=== PATIENT | male | born 1955 | race Caucasian/White ===

== ENCOUNTER → 2021-06-05 06:30 | Outpatient (CLI) | payer OTHER, BC, SELFPAY ==
--- NOTE | 2021-06-05 06:43 | MRI_ITS ---
STUDY: MRI RIGHT SHOULDER REASON FOR EXAM: Right shoulder pain extending to elbow for over a year, no specific injury. TECHNIQUE: Standardized fat and water weighted pulse sequences were obtained in all 3 orthogonal planes. COMPARISON: None. FINDINGS: There is mild supraspinatus tendinosis (T2 coronal images 12-14) without discrete tendon tear. There is mild infraspinatus tendinosis with a small linear intermediate to high-grade partial-thickness tear of the articular surface of the distal anterior infraspinatus tendon (T2 coronal image 10). Normal subscapularis tendon. Normal teres minor tendon. Normal supraspinatus muscle. There is mild atrophy with mild partial fat replacement of the infraspinatus and teres minor muscles (T2 sagittal images 16-22). Normal subscapularis muscle. Normal glenohumeral articulation. There is mild cystic change of the posterior aspect of the greater tuberosity. There is a suspected SLAP lesion (T2 coronal images 9-13). Normal intracapsular long biceps tendon. Normal capsulo- ligamentous complex. There is acromioclavicular arthrosis with hypertrophic changes abutting the supraspinatus musculotendinous junction (T2 sagittal image 15, 16). There is a Type II morphology (curved), with a neutral orientation. There is a trace of subacromial-subdeltoid bursal fluid. Normal visualized coracohumeral and coracoacromial ligaments. Normal deltoid muscle. Normal trapezius muscle. MRI/Upper Ext Joint Only(Routine) IMPRESSION: Small linear partial-thickness tear and mild tendinosis of the infraspinatus tendon. Mild subscapularis tendinosis. Mild atrophy of the infraspinatus and teres minor muscles. Suspected SLAP lesion. Acromioclavicular arthrosis. Electronically Signed: Jimmie Spear MD at 8:25 EDT Tel , Service support ,
== END ==
DX: M19.011 Primary osteoarthritis, right shoulder (principal)
CPT/HCPCS: 73221

== ENCOUNTER 2021-12-31 08:15 | Emergency (ER) | payer OTHER, BC, SELFPAY ==
[2021-12-31 08:15] VITALS: BP 116/90; PULSE 104; RESP 14; TEMP 36.6; O2SAT 99; BMI 30.3
[2021-12-31 08:18] VITALS: BP 116/90; PULSE 103; RESP 17; TEMP 36.6; O2SAT 99
--- NOTE | 2021-12-31 08:31 | EX.ED.DYSGE1 ---
HPI History of Present Illness Chief Complaint: Other, Pain/Inj Informant: patient Onset/Context/Timing Onset: Today Context: Sudden Onset Timing: Continuous Quality: Purulent drainage Location: Right-sided neck Worsened by: Nothing Relieved by: Nothing Narrative Narrative: Patient presents with purulent drainage from the right side of his neck that began today. Patient had a recent tracheostomy and removal of the tracheostomy. Patient had a temperature of 99.7 yesterday but denies any true fever. Patient denies any difficulty breathing or difficulty swallowing. Patient has noticed a large amount of purulent drainage from the right side of his neck today. Patient denies any chest pain or shortness of breath. Patient denies any nausea or vomiting. Patient denies any other symptoms. [facility] Medical History (Updated 12/31/21 @ 10:[address] Nabil Bolden, ) Cancer of lower jaw bone Home Medications acetaminophen 480 mg PO Q6H PRN 12/31/21 [History Last Taken Unknown] allopurinol 300 mg PO DAILY 12/31/21 [History Last Taken Unknown] aspirin 325 mg PO DAILY 12/31/21 [History Last Taken Unknown] atenolol 50 mg FEEDING TUBE DAILY 12/31/21 [History Last Taken Unknown] cephalexin 500 mg PO Q6 #40 capsule 12/31/21 [Rx Last Taken Unknown] chlorhexidine gluconate 15 ml MUCOUS MEMBRANE TID 12/31/21 [History Last Taken Unknown] docusate sodium [Colace] 100 mg FEEDING TUBE BID 12/31/21 [History Last Taken Unknown] esomeprazole magnesium 40 mg FEEDING TUBE DAILY 12/31/21 [History Last Taken Unknown] hydrochlorothiazide 50 mg FEEDING TUBE DAILY 12/31/21 [History Last Taken Unknown] metformin 500 mg FEEDING TUBE DAILY 12/31/21 [History Last Taken Unknown] oxycodone 5 mg FEEDING TUBE Q6H PRN PRN 12/31/21 [History Last Taken Unknown] pioglitazone 45 mg FEEDING TUBE DAILY 12/31/21 [History Last Taken Unknown] sennosides [senna] 8.6 mg PO DAILY 12/31/21 [History Last Taken Unknown] Allergy/AdvReac Type Severity Reaction Status Date / Time pneumococcal vaccine Allergy PT UNSURE Verified 12/31/21 08:23 OF REACTION clarithromycin [From Biaxin] AdvReac PT UNSURE Verified 12/31/21 08:23 OF REACTION empagliflozin AdvReac Other Verified 12/31/21 08:23 [From Jardiance] glipizide AdvReac PT UNSURE Verified 12/31/21 08:23 OF REACTION losartan AdvReac PT UNSURE Verified 12/31/21 08:23 OF REACTION Surgical History (Updated 12/31/21 @ 08:[address] Nabil Bolden, ) Hx of tracheostomy S/P percutaneous endoscopic gastrostomy (PEG) tube placement Social History Smoking Status: Never smoker ROS ROS ED Constitutional Constitutional ED: Reports fever(s) and subjective; Denies chills Eyes Eyes: Denies blurry vision or change in vision ENT ENT ED: Denies rhinorrhea or sore throat Cardiovascular Cardiovascular: Denies chest pain or palpitations Respiratory/Chest Respiratory/Chest: Denies cough or dyspnea Gastrointestinal Gastrointestinal: Denies nausea or vomiting Genitourinary Genitourinary ED: Denies dysuria or hematuria Musculoskeletal Musculoskeletal: Reports neck pain; Denies back pain Integumentary Reports abscess; Denies rash Neurologic Neurologic: Denies headache(s) or weakness Allergic/Immunologic Allergic/Immunologic ED: Denies mouth swelling or urticaria EXAM Physical Exam Const Vital Signs: 12/31/21 08:15 12/31/21 08:18 12/31/21 08:26 Temperature 97.9 F 97.9 F Temperature Source Temporal Temporal Pulse Rate 104 H 103 H Respiratory Rate 14 17 Respiratory Effort Normal Blood Pressure 116/90 H 116/90 H Blood Pressure Mean 98 98 Pulse Ox 99 99 Oxygen Delivery Method Room Air Room Air 12/31/21 09:15 12/31/21 09:36 12/31/21 10:08 Temperature 98.1 F 98.5 F Temperature Source Temporal Temporal Pulse Rate 98 88 Respiratory Rate 18 17 Respiratory Effort Blood Pressure 145/74 H 145/74 H 137/72 H Blood Pressure Mean 97 97 93 Pulse Ox 98 99 Oxygen Delivery Method Room Air Room Air Positive well nourished and well developed General Appearance ED: well developed and NAD HEENT Reports moist mucous membranes Neck supple and no JVD Neck Narrative: There is some mild right submandibular swelling. There is no evidence of Luis Armando's angina. Resp normal respiratory effort and clear to auscultation bilaterally Cardio regular rate and regular rhythm GI non-tender Auscultation: normoactive bowel sounds Palpation: soft Neuro oriented x3, CN's II-XII intact bilaterally and no sensory deficits noted Sensorium / Orientation: alert Motor Exam: strength 5/5 throughout Psych mental status grossly normal Skin Skin Narrative: There is some erythema and induration over the right side of the neck. There is moderate to large amount of purulent drainage noted. There is mild warmth. MDM MDM MDM Narrative Medical decision making narrative: Since the area is already open and draining, I do not feel incision and drainage is necessary at this time. CBC shows a mild leukocytosis of 13.1. Platelets were elevated at 997. This is most likely due to acute phase reactant from the infection. Comprehensive metabolic profile shows a mildly elevated glucose of 211. The remainder was essentially within normal limits. CT scan of the soft tissue neck was obtained. There is small area of abscess on the right. This was interpreted by the radiologist and reviewed by myself. Patient was given a dose of Ancef here. Patient does not meet sepsis criteria. Patient was advised of his findings. Patient was instructed to follow-up with his surgeon in 3 to 5 days. Patient was instructed to return if any difficulty breathing or difficulty swallowing, or if he feels like his tongue or submandibular area is swelling, or if he is worse in any way. Patient understood and was agreeable with the plan. All questions were answered. Lab Data Attestation: I reviewed the patient's lab results. Labs: Laboratory Results - last 24 hr 12/31/21 12/31/21 08:46 08:46 WBC 13.1 H RBC 3.66 L Hgb 11.0 L Hct 32.3 L MCV 88.3 MCH 30.1 MCHC 34.1 RDW Std Deviation 41.1 RDW Coeff of Shira 12.8 Plt Count 997 H* MPV 8.5 Immature Gran % (Auto) 0.700 Neut % (Auto) 72.6 H Lymph % (Auto) 13.3 L Guthrie % (Auto) 11.4 H Eos % (Auto) 1.4 Baso % (Auto) 0.6 Absolute Neuts (auto) 9.5 H Absolute Lymphs (auto) 1.74 Nucleated RBC % 0 Differential Comment SCANNED Diff Path Review May foll Platelet Estimate MKD INC Sodium 132 L Potassium 3.4 L Chloride 94 L Carbon Dioxide 27.0 Anion Gap 11 BUN 19 H Creatinine 0.90 Estim Creat Clear Calc 79.65 Est GFR (MDRD) Af Amer 107 Est GFR (MDRD) Non-Af 89 BUN/Creatinine Ratio 21.0 H Glucose 211 H Calcium 9.5 Total Bilirubin 0.50 AST 26 ALT 45 Alkaline Phosphatase 65 Total Protein 8.6 H Albumin 2.6 L Globulin 6.0 H Albumin/Globulin Ratio 0.4 L Radiography Diagnostic Testing: Clinical Impression(s) from Imaging Studies Soft Tissue Neck CT 12/31/21 08:36 IMPRESSION: At the level of the resection site of the right mandible with reconstruction, there is a 40 x 14 mm fluid collection with air. Se 2 IM: 58. There is also a thin rim of fluid that follows along the inferior margin of the mandible from right to left. Se 2 IM: 55. This can represent an abscess. Differential would also include recent postsurgical changes. Enlarged lymph nodes along the left submandibular spaces. Electronically Signed: Alpesh Wood MD at 10:08 EDT Reading Location ID and State: [facility] / [place] , Service support , Discharge Plan Triage Chief Complaint: Other, Pain/Inj ED Provider: Nabil Bolden Dx/Rx/DC Orders Clinical Impression: Abscess of jaw, right, Thrombocytosis Instructions: ED Abscess Antibiotic Treatment Only Prescriptions: New cephalexin [cephalexin] 500 MG capsule 500 mg PO Q6 Qty: 40 RF: 0 No Action acetaminophen 160 mg/5 mL Suspension 480 mg PO Q6H PRN (Reason: Pain, Mild) RF: 0 allopurinol 300 mg Tablet 300 mg PO DAILY RF: 0 atenolol 50 mg Tablet 50 mg feeding tube DAILY RF: 0 chlorhexidine gluconate 0.12 % Mouthwash 15 ml MUCOUS MEMBRANE TID RF: 0 aspirin 325 mg Capsule 325 mg PO DAILY RF: 0 docusate sodium [Colace] 50 mg/5 mL Liquid 100 mg feeding tube BID RF: 0 metformin 500 mg Tablet 500 mg feeding tube DAILY RF: 0 hydrochlorothiazide 50 mg Tablet 50 mg feeding tube DAILY RF: 0 oxycodone 5 mg/5 mL Solution 5 mg feeding tube Q6H PRN PRN (Reason: Breakthrough Pain, Moderate) RF: 0 esomeprazole magnesium [address] For Susp In Packet 40 mg feeding tube DAILY RF: 0 sennosides [senna] 8.6 mg Tablet 8.6 mg PO DAILY RF: 0 pioglitazone 45 mg Tablet 45 mg feeding tube DAILY RF: 0 [facility] Care Provider: [facility] [facility] [Primary Care Provider] - 3-5 Days Disposition Disposition: Home, Self Care
--- NOTE | 2021-12-31 08:36 | CT_ITS ---
STUDY: CT SOFT TISSUE NECK WITH CONTRAST REASON FOR EXAM: Male, 66 years old. Abscess CA OF JAW BONE RECONSTRUCTION OF JAW BONE, TRACH T REMOVAL OF PURULANT DRAINAGE FROM RIGHT SIDE NECK TECHNIQUE: The patient was scanned in a multi-detector CT scanner. High resolution transaxial imaging was performed following intravenous administration of 75 ml of Isovue 370 contrast material. Sagittal and coronal images were reconstructed. Individualized dose optimization techniques were used for this CT. COMPARISON: None. FINDINGS: Normal bilateral parotid glands. Normal bilateral parapharyngeal spaces. Post surgical fluid in the right carotid spaces. Enlarged lymph nodes along the left submandibular spaces. Normal visualized nasopharynx. Normal retropharyngeal space. Normal perivertebral space. Normal visualized bilateral faucial tonsils. The visualized tongue, tongue base and oropharynx are normal. Normal epiglottis, bilateral vallecula and hypopharynx. The pre-epiglottic and paraglottic adipose spaces are normal. Normal visualized bilateral piriform sinuses, aryepiglottic folds, vocal cords, and arytenoid-cricoid articulations. Normal subglottic trachea. Normal bilateral lobes of the thyroid gland. Normal visualized pulmonary apices. Post surgical changes along the right side of the neck. Diffuse enlargement of the right sternocleidomastoid muscle. This is likely related to the recent surgery. There is surgical resection of the right side of the mandible. Bone graft material is visualized at the resection site with sideplate and screws fixating the bone graft to the patients right mandibular ramus and left mentum of the mandible. Fatty soft tissue flap visualized overlying the postsurgical defect. At the level of the resection site and the subcutaneous tissue there is a 40 x 14 mm fluid collection with air. Se 2 IM: 58. There is also a thin rim of fluid that follows along the inferior margin of the mandible from right to left. Se 2 IM: 55. This can represent an abscess. Differential would also include recent postsurgical changes. There is mucosal inflammatory disease of the paranasal sinuses consistent with chronic sinusitis. There is multilevel degenerative changes of the cervical spine. CT/Soft Tissue Neck WITH Contrast IMPRESSION: At the level of the resection site of the right mandible with reconstruction, there is a 40 x 14 mm fluid collection with air. Se 2 IM: 58. There is also a thin rim of fluid that follows along the inferior margin of the mandible from right to left. Se 2 IM: 55. This can represent an abscess. Differential would also include recent postsurgical changes. Enlarged lymph nodes along the left submandibular spaces. Electronically Signed: Alpesh Wood MD at 10:08 EDT ,
[2021-12-31] MEDS: 0.9% Normal Saline 1,000 ML 1000 ML IV (08:48)
[2021-12-31 08:51] LABS: Absolute Lymphocyte Count 1.74 X10^3/uL (0.83-4.51); Absolute Neutrophil Count 9.5 X10^3/uL (2.0-7.7); Basophil# 0.08 X10^3/uL; Basophil% 0.6 % (0-1); Eosinophil# 0.18 X10^3/uL; Eosinophils% 1.4 % (0-5); Hematocrit 32.3 % (40-54); Lymphocyte # 1.74 X10^3/ul (0.83-4.51); Lymphocyte % 13.3 % (19-41); Mean Corp Hgb Conc 34.1 g/dL (32-36); Mean Corpuscular Hgb 30.1 pg (27.0-32.0); Mean Corpuscular Volume 88.3 fL (80-94); Mean Platelet Vol. 8.5 fl (6.2-12.0); Monocyte# 1.49 X10^3/uL; Monocyte% 11.4 % (0-10); NRBC Flagged by Analyzer 0 % (0-5); Neutrophil % 72.6 % (47-70); POSITIVE COUNT YES; RBC Distribution Width CV 12.8 % (11.6-14.6); RBC Distribution Width SD 41.1 fl (35.1-43.9); Red Blood Count 3.66 M/mm3 (4.6-6.2); White Blood Count 13.1 K/mm3 (4.4-11.0)
[2021-12-31 08:55] LABS: Differential Indicated SCAN CRITERIA MET
[2021-12-31 08:56] LABS: Platelet Count 997 K/mm3 (150-450)
[2021-12-31 09:11] LABS: ALB/GLOB Ratio 0.4 RATIO (0.9-2.4); AST(SGOT) 26 U/L (15-37); Alanine Aminotransfer ALT/SGPT 45 U/L (16-61); Albumin, Serum 2.6 g/dL (3.2-5.0); Alkaline Phosphatase 65 U/L (45-117); Anion Gap 11 (5-15); BUN 19 mg/dL (7-18); Calcium,Total 9.5 mg/dL (8.5-10.1); Chloride 94 mmol/L (98-107); EST Glomerular Filtration Rate 89 mL/min (>60); Est Glom Filt Rate - Afr Amer 107 mL/min (>60); Estimated Creatinine Clearance 79.65 ml/min; Glucose 211 mg/dL (74-106); Potassium 3.4 mmol/L (3.5-5.1); Protein, Total 8.6 g/dL (6.4-8.2); Sodium Level 132 mmol/L (136-145)
[2021-12-31 09:14] LABS: Differential Comment SCANNED; Platelet Estimate MKD INC (ADEQ)
[2021-12-31 09:15] VITALS: BP 145/74; PULSE 98; RESP 18; TEMP 36.7; O2SAT 98
[2021-12-31 09:36] VITALS: BP 145/74
[2021-12-31 10:08] VITALS: BP 137/72; PULSE 88; RESP 17; TEMP 36.9; O2SAT 99
[2021-12-31] MEDS: Cefazolin 1 GM/50 ML BAG IV (11:07)
[2021-12-31 11:12] VITALS: BP 125/64; PULSE 92; RESP 16; TEMP 36.2; O2SAT 98
[2022-01-01 13:27] LABS: Pathologist Review Reviewed
== END 2021-12-31 12:03 | disposition home or self-care (01) ==
PROVIDERS: Emergency Provider Emergency Medicine; Visit Provider Emergency Medicine
DX: M27.2 Inflammatory conditions of jaws (principal)
CPT/HCPCS: 70491; 80053; 85025; 87070; 87205; 96361; 96365; 99285; J7030; J7050; Q9967; A4216

== ENCOUNTER 2022-07-03 08:53 | Emergency (ER) | payer OTHER, SELFPAY ==
[2022-07-03 08:54] VITALS: BP 125/82; PULSE 98; RESP 18; TEMP 35.9; O2SAT 100; BMI 27.4
[2022-07-03 09:00] VITALS: BP 125/82; PULSE 98; RESP 18; TEMP 35.9; O2SAT 100
[2022-07-03 09:01] VITALS: O2SAT 97
--- NOTE | 2022-07-03 09:17 | EDS_ITS ---
HPI History of Present Illness Chief Complaint: Cough Detail of Chief Complaint: Hemoptysis Informant: patient Onset/Context/Timing Onset: Today Context: gradual Timing: Intermittent Quality: Negative for Dyspnea on exertion Current Severity: Mild Maximum Severity: Mild Worsened by: Nothing Relieved by: Nothing Associated Symptoms cough; Negative for chills Chest Pain: Positive for None Narrative Narrative: 67-year-old male history history of throat and lung cancer that he has [place] [facility] [place] Just finished chemotherapy 1 to 2 weeks ago and he was hospitalized at that time. States today he has had coughing of bright red blood clots. He denies any chest pain or shortness of breath. He denies any fever or chills. He denies any history of prior DVT or PE. He is on no blood thinners. PE Risk Factors: Positive for Cancer; Negative for OCP + Smoking + > 35, Prior DVT or PE, Recent immobilization, Recent surgery or Recent travel Prior similar symptoms: No Recent Illness/Hospitalization: Yes [facility] Medical History Cancer of lower jaw bone Home Medications acetaminophen 160 mg/5 mL oral suspension 480 mg PO Q6H PRN Pain, Mild 12/31/21 [History Last Taken Unknown] allopurinol 300 mg tablet 300 mg PO DAILY 12/31/21 [History Last Taken Unknown] aspirin 325 mg capsule 325 mg PO DAILY 12/31/21 [History Last Taken Unknown] atenolol 50 mg tablet 50 mg feeding tube DAILY 12/31/21 [History Last Taken Unknown] cephalexin 500 mg capsule 500 mg PO Q6 #40 CAPSULES 12/31/21 [Rx Last Taken Unknown] chlorhexidine gluconate 0.12 % mouthwash 15 ml mucous membrane TID 12/31/21 [History Last Taken Unknown] docusate sodium 50 mg/5 mL oral liquid 100 mg feeding tube BID 12/31/21 [History Last Taken Unknown] esomeprazole magnesium 40 mg granules delayed release for susp 40 mg feeding tube DAILY 12/31/21 [History Last Taken Unknown] hydrochlorothiazide 50 mg tablet 50 mg feeding tube DAILY 12/31/21 [History Last Taken Unknown] metformin 500 mg tablet 500 mg feeding tube DAILY 12/31/21 [History Last Taken Unknown] oxycodone 5 mg/5 mL oral solution 5 mg feeding tube Q6H PRN PRN Breakthrough Pain, Moderate 12/31/21 [History Last Taken Unknown] pioglitazone 45 mg tablet 45 mg feeding tube DAILY 12/31/21 [History Last Taken Unknown] sennosides 8.6 mg tablet (senna) 8.6 mg PO DAILY 12/31/21 [History Last Taken Unknown] levofloxacin 750 mg tablet 750 mg PO DAILY 7 days #7 tabs 07/03/22 [Rx Last Taken Unknown] Allergy/AdvReac Type Severity Reaction Status Date / Time pneumococcal vaccine Allergy PT UNSURE Verified 07/03/22 09:03 OF REACTION clarithromycin [From Biaxin] AdvReac PT UNSURE Verified 07/03/22 09:03 OF REACTION empagliflozin AdvReac Other Verified 07/03/22 09:03 [From Jardiance] glipizide AdvReac PT UNSURE Verified 07/03/22 09:03 OF REACTION losartan AdvReac PT UNSURE Verified 07/03/22 09:03 OF REACTION Surgical History Hx of tracheostomy S/P percutaneous endoscopic gastrostomy (PEG) tube placement Social History Smoking Status: Never smoker ROS ROS ED ROS Narrative Hemoptysis. Review of Systems ROS Unobtainable: Denies due to encephalopathy Constitutional Constitutional ED: Denies chills or fever(s) Eyes Eyes: Denies blurry vision ENT ENT ED: Denies ear pain Cardiovascular Cardiovascular: Denies chest pain, orthopnea or paroxysmal nocturnal dyspnea Respiratory/Chest Respiratory/Chest: Reports cough; Denies dyspnea, dyspnea on exertion, orthopnea or paroxysmal nocturnal dyspnea Gastrointestinal Gastrointestinal: Denies abdominal pain Genitourinary Genitourinary ED: Denies dysuria or hematuria Musculoskeletal Musculoskeletal: Denies arthralgias Integumentary Denies abscess Neurologic Neurologic: Denies headache(s) Psychiatric Psychiatric: Denies anxiety Endocrine Endocrinology: Denies cold intolerance Hematologic/Lymphatic Hematologic/Lymphatic: Denies easy bleeding Allergic/Immunologic Allergic/Immunologic ED: Denies mouth swelling or tongue swelling EXAM Physical Exam Narrative Exam Narrative: Well-appearing 67-year-old male. Vital signs stable afebrile. Pulse ox 100% on room air no hypoxia. He is in no distress. H EENT exam blood in his posterior pharynx. Dried blood in his nares. But no active bleeding currently in his nose. He does state he had a nosebleed earlier today. Neck nontender. Prior well-healed neck and jaw surgery. Lungs are clear. Heart regular rhythm no murmur. Abdomen is soft and nontender. Moving all 4 extremities. Calves are nontender without edema or cords. Neurologically is awake and alert with no focal motor deficits. Const Vital Signs: 07/03/22 08:54 07/03/22 09:00 07/03/22 09:01 Temperature 96.6 F L 96.6 F L Temperature Source Temporal Temporal Pulse Rate 98 98 Respiratory Rate 18 18 Respiratory Effort Normal Non-Labored Respiratory Depth Normal Respiratory Pattern Normal Blood Pressure 125/82 H 125/82 H Blood Pressure Mean 96 96 Pulse Ox 100 100 Oxygen Delivery Method Room Air Room Air Room Air 07/03/22 10:06 07/03/22 12:53 Temperature 97.6 F L Temperature Source Oral Pulse Rate 87 82 Respiratory Rate 11 L 16 Respiratory Effort Respiratory Depth Respiratory Pattern Blood Pressure 94/72 105/86 H Blood Pressure Mean 79 92 Pulse Ox 98 100 Oxygen Delivery Method Room Air Positive well nourished and well developed; Negative for obese, cachectic, contractures or unkempt General Appearance ED: well developed and NAD; Negative for unkempt, cachectic, contractures or pallor Nutritional Appearance: Negative for cachectic or obese HEENT Reports moist mucous membranes; Denies dry mucous membranes HEENT Narrative: Blood in his posterior pharynx. atraumatic; Negative for trauma or tenderness Mouth ED: No dry mucous membranes Mouth: No dry mucous membranes Eyes PERRL and EOMs intact bilaterally General Eye ED: Negative for pale conjunctiva or scleral icterus Neck no lymphadenopathy, supple, no meningeal signs and no JVD General: Negative for tenderness or other Lymph Lymphatic: Negative for other Resp normal respiratory effort and clear to auscultation bilaterally Effort and Inspection: Negative for pain with movement Auscultation: Negative for rales, rhonchi or wheezes Cardio regular rate, regular rhythm, S1 normal heart sound, S2 normal heart sound and no murmurs Rate: Negative for bradycardia or tachycardic Rhythm: Negative for abnormal rhythm GI non-tender, non-distended and no masses Auscultation: normoactive bowel sounds Palpation: soft; Negative for tender Bladder / Kidney Exam: No other Back/Spine no CVA tenderness and normal to inspection General Back: Negative for CVA tenderness Extremity normal to inspection General Extremety ED: Negative for edema or tenderness General Extremity: Negative for edema Neuro oriented x3 and CN's II-XII intact bilaterally Sensorium / Orientation: alert, oriented to person, oriented to place and oriented to time; Negative for orientation impaired, confused, lethargic or stuporous Speech: speech normal Motor Exam: strength 5/5 throughout Psych mental status grossly normal Appearance: Negative for unkempt Attitude: No agitated Mood & Affect: Negative for depressed Thought Process: normal thought process Skin no wounds General Skin Exam: Negative for jaundice or pallor Lesions: no lesions Rashes: no rashes Trauma: Negative for abrasion or laceration MDM MDM MDM Narrative Medical decision making narrative: 67-year-old male with hemoptysis today. This may be from blood from his nose. Currently has no active bleeding. Obviously with his prior throat cancer that is a consideration versus potentially blood clots. He is not having any chest pain or shortness of breath but he does have risk factors including recent hospitalization and cancer history. Labs, D-dimer and chest x-ray to be obtained. Repeat exam doing well at 1:15 PM. Discussed at length with patient and family at bedside. He wants to go home. His vital signs are stable for him to go home. His pulse ox is 100%. He will be given a dose of Levaquin here placed on it at home and follow-up with his primary care provider. Return if worse Lab Data Attestation: I reviewed the patient's lab results. Lab results narrative: CBC shows a White count 7.5. H&H 9.3 and 27. Platelets 259. D-dimer is elevated 0.96. CTA of the chest being ordered. Electrolytes show a gap of 7 and normal BUN of 13 and creatinine 0.7. Liver enzymes unremarkable. Glucose 138. CT of the chest shows a right upper lobe pneumonia no blood clot. No mass. Labs: Laboratory Results - last 24 hr 07/03/22 07/03/22 07/03/22 09:10 09:10 09:10 WBC 7.5 RBC 2.66 L Hgb 9.3 L Hct 27.7 L MCV 104.1 H MCH 35.0 H MCHC 33.6 RDW Std Deviation 63.1 H RDW Coeff of Shira 16.8 H Plt Count 259 MPV 8.6 Immature Gran % (Auto) 0.400 Neut % (Auto) 77.0 H Lymph % (Auto) 11.3 L [place] % (Auto) 10.5 H Eos % (Auto) 0.7 Baso % (Auto) 0.1 Absolute Neuts (auto) 5.8 Absolute Lymphs (auto) 0.85 Nucleated RBC % 0 D-Dimer Quant (PE/DVT) 0.96 H* Sodium 135 L Potassium 3.6 Chloride 100 Carbon Dioxide 28.0 Anion Gap 7 BUN 13 Creatinine 0.70 Estim Creat Clear Calc 68.40 Est GFR (MDRD) Af Amer 143 Est GFR (MDRD) Non-Af 118 BUN/Creatinine Ratio 18.4 Glucose 138 H Calcium 9.4 Total Bilirubin 0.40 AST 39 H ALT 29 Alkaline Phosphatase 91 Total Protein 7.5 Albumin 2.7 L Globulin 4.8 H Albumin/Globulin Ratio 0.6 L Radiography Chest X-Ray - ED: 1 View, Read by ED Physician, Heart, Mediastinum, Bony Structures, Chronic Changes, Right Infiltrate and - (Right upper lobe infiltrate versus mass.) Diagnostic Testing: Clinical Impression(s) from Imaging Studies Chest X-Ray 07/03/22 09:44 IMPRESSION: Right upper lobe lesion which may represent mass or pneumonia. Follow-up CT chest recommended. Electronically Signed: Alirio Horowitz MD at 9:54 EST , Chest CTA 07/03/22 10:10 IMPRESSION: 1. Right upper lobe pneumonia. Bibasilar pulmonary densities which may represent pneumonia, atelectasis or edema. 2. No evidence of acute pulmonary embolism. Electronically Signed: Alirio Horowitz MD at 11:23 EST , Chest x-ray, portable, single view shows normal cardiac silhouette. This was interpreted by myself the radiologist. There may be a right upper lobe density. A CTA of the chest is being ordered. Rhythm Strip Rhythm Strip: Sinus Rhythm Rate: 89 Ectopy: None EKG Initial EKG: Attestation: I personally reviewed and interpreted this EKG as follows: Interpretation: Sinus Rhythm and No Acute Injury Pattern Comments: Normal sinus rhythm rate 89 no acute signs of NM or ischemia. Discharge Plan Triage Chief Complaint: Cough ED Provider: Artem Judge Dx/Rx/DC Orders Clinical Impression: Pneumonia, Hemoptysis, History of diabetes mellitus, History of oral cancer Instructions: ED Pneumonia (Adult) Prescriptions: New levofloxacin 750 mg tablet 750 mg PO DAILY 7 Days Qty: 7 0RF No Action acetaminophen 160 mg/5 mL Suspension 480 mg PO Q6H PRN (Reason: Pain, Mild) allopurinol 300 mg Tablet 300 mg PO DAILY atenolol 50 mg Tablet 50 mg feeding tube DAILY chlorhexidine gluconate 0.12 % Mouthwash 15 ml MUCOUS MEMBRANE TID aspirin 325 mg Capsule 325 mg PO DAILY Rx Instructions: peg tube docusate sodium [Colace] 50 mg/5 mL Liquid 100 mg feeding tube BID metformin 500 mg Tablet 500 mg feeding tube DAILY hydrochlorothiazide 50 mg Tablet 50 mg feeding tube DAILY oxycodone 5 mg/5 mL Solution 5 mg feeding tube Q6H PRN PRN (Reason: Breakthrough Pain, Moderate) esomeprazole magnesium [address] For Susp In Packet 40 mg feeding tube DAILY sennosides [senna] 8.6 mg Tablet 8.6 mg PO DAILY pioglitazone 45 mg Tablet 45 mg feeding tube DAILY cephalexin [cephalexin] 500 MG capsule 500 mg PO Q6 Qty: 40 0RF [facility]errals: [facility] [Primary Care Provider] - Activity Restrictions/Additional Instructions: Plenty of fluids and rest. Daily Levaquin take it tomorrow morning after breakfast. Follow-up with your doctor to make sure you are improving. Return if worse. You have a right upper lobe pneumonia. The coughing up blood should improve over time as the infection gets better. Disposition Disposition: Home, Self Care
--- NOTE | 2022-07-03 09:30 | EKG12_ITS ---
Test Reason : GENERAL Blood Pressure : / mmHG Vent. Rate : 089 BPM Atrial Rate : 089 BPM P-R Int : 164 ms QRS Dur : 086 ms QT Int : 368 ms P-R-T Axes : 043 034 027 degrees QTc Int : 447 ms Normal sinus rhythm Normal ECG Confirmed by DIEGO VILLALBA, ION ([id number]), editor map LIU OLSEN ([id number]) on 07/04/2022 11:14:33 AM Referred By: Confirmed By:ION CORTEZ MD
--- NOTE | 2022-07-03 09:44 | RAD_ITS ---
EXAM: XR CHEST, 1 VIEW CLINICAL INDICATION: hemoptysis TECHNIQUE: Frontal view of the chest. This report was created using [employer] report generation technology. COMPARISON: None. FINDINGS: LUNGS AND PLEURAL SPACES: Ill-defined somewhat nodular density within the right upper lobe may represent mass or pneumonia. Recommend correlation with CT chest for further evaluation. No pneumothorax. No effusion. HEART: Normal heart size. MEDIASTINUM: No mediastinal or hilar mass. BONES/JOINTS: No acute abnormality. SOFT TISSUES: Normal. RAD/Chest 1 View (Portable) IMPRESSION: Right upper lobe lesion which may represent mass or pneumonia. Follow-up CT chest recommended. Electronically Signed: Alirio Horowitz MD at 9:54 EST ,
[2022-07-03 09:45] LABS: Absolute Lymphocyte Count 0.85 X10^3/uL (0.83-4.51); Absolute Neutrophil Count 5.8 X10^3/uL (2.0-7.7); Basophil# 0.01 X10^3/uL; Basophil% 0.1 % (0-1); Eosinophil# 0.05 X10^3/uL; Eosinophils% 0.7 % (0-5); Hematocrit 27.7 % (40-54); Hemoglobin 9.3 g/dL (13.0-16.5); Lymphocyte # 0.85 X10^3/ul (0.83-4.51); Lymphocyte % 11.3 % (19-41); Mean Corp Hgb Conc 33.6 g/dL (32-36); Mean Corpuscular Volume 104.1 fL (80-94); Mean Platelet Vol. 8.6 fl (6.2-12.0); Monocyte# 0.79 X10^3/uL; Monocyte% 10.5 % (0-10); NRBC Flagged by Analyzer 0 % (0-5); Platelet Count 259 K/mm3 (150-450); RBC Distribution Width CV 16.8 % (11.6-14.6); RBC Distribution Width SD 63.1 fl (35.1-43.9); Red Blood Count 2.66 M/mm3 (4.6-6.2); White Blood Count 7.5 K/mm3 (4.4-11.0)
[2022-07-03 10:04] LABS: D-Dimer Quantitative (DVT/PE) 0.96 FEU/ug/m (0.27-0.49)
[2022-07-03 10:06] VITALS: BP 94/72; PULSE 87; RESP 11; TEMP 36.4; O2SAT 98
[2022-07-03 10:08] LABS: ALB/GLOB Ratio 0.6 RATIO (0.9-2.4); AST(SGOT) 39 U/L (15-37); Alanine Aminotransfer ALT/SGPT 29 U/L (16-61); Albumin, Serum 2.7 g/dL (3.2-5.0); Alkaline Phosphatase 91 U/L (45-117); Anion Gap 7 (5-15); BUN 13 mg/dL (7-18); BUN/Creat Ratio 18.4 RATIO (10-20); Calcium,Total 9.4 mg/dL (8.5-10.1); Chloride 100 mmol/L (98-107); EST Glomerular Filtration Rate 118 mL/min (>60); Est Glom Filt Rate - Afr Amer 143 mL/min (>60); Globulin 4.8 g/dL (2.2-4.2); Glucose 138 mg/dL (74-106); Potassium 3.6 mmol/L (3.5-5.1); Protein, Total 7.5 g/dL (6.4-8.2); Sodium Level 135 mmol/L (136-145)
--- NOTE | 2022-07-03 10:10 | CT_ITS ---
EXAM: CT ANGIOGRAPHY CHEST WITHOUT AND WITH INTRAVENOUS CONTRAST CLINICAL INDICATION: Elevated D-dimer. Blood clot versus potential mass TECHNIQUE: Helically acquired angiography images were obtained of the chest without and with intravenous contrast. This CT exam was performed using one or more of the following dose reduction techniques: automated exposure control, adjustment of the mA and/or kV according to patient size, and/or use of iterative reconstruction technique. This report was created using [employer] report generation technology. MIP reconstructed images were created and reviewed. CONTRAST: IV 100mL [id number] COMPARISON: None. FINDINGS: PULMONARY ARTERIES: Normal. Normal in caliber. No evidence of pulmonary embolism. AORTA: Normal. Normal in caliber. No evidence of dissection. GREAT VESSELS OF AORTIC ARCH: Normal. Normal in caliber. No evidence of dissection. LUNGS AND PLEURAL SPACES: Patchy airspace opacification within the right upper consistent with pneumonia. Mild bibasilar groundglass densities. No mass. No pleural effusion or thickening. HEART: Mild coronary artery calcification. No pericardial effusion. No signs of right heart strain, ratio of right ventricle to left ventricle measures less than 1. MEDIASTINUM: Normal. No mediastinal or hilar adenopathy. Esophagus is unremarkable. No hiatal hernia. THYROID: Normal. No thyroid lesions. BONES/JOINTS: Normal. No suspicious lytic or blastic abnormality. GALLBLADDER AND BILE DUCTS: Small amount of sludge or gravel present within the gallbladder. TUBES, LINES AND DEVICES: Gastrostomy tube in place with the anchor portion of the catheter 2 cm from the anterior gastric wall. OTHER FINDINGS: Partially visualized postoperative changes of the mandible noted. CT/CTA Chest W/WO Contrast IMPRESSION: 1. Right upper lobe pneumonia. Bibasilar pulmonary densities which may represent pneumonia, atelectasis or edema. 2. No evidence of acute pulmonary embolism. Electronically Signed: Alirio Horowitz MD at 11:23 EST ,
[2022-07-03 12:53] VITALS: BP 105/86; PULSE 82; RESP 16; O2SAT 100
[2022-07-03 13:58] VITALS: BP 110/69; PULSE 71; RESP 18; O2SAT 97
[2022-07-03] MEDS: levoFLOXacin 750 MG Tablet PO (14:01)
== END 2022-07-03 14:02 | disposition home or self-care (01) ==
PROVIDERS: Emergency Provider Emergency Medicine; Visit Provider Emergency Medicine
DX: J18.9 Pneumonia, unspecified organism (principal); E11.9 Type 2 diabetes mellitus without complications; R04.2 Hemoptysis; Z85.819 Personal history of malignant neoplasm of unspecified site of lip, oral cavity, and pharynx
CPT/HCPCS: 71045; 71275; 80053; 85025; 85379; 93005; 99285; Q9967; A4216

== ENCOUNTER 2024-06-22 20:32 | Emergency (ER) | payer OTHER, SELFPAY ==
[2024-06-22 20:32] VITALS: BP 157/101; PULSE 72; RESP 16; TEMP 36.8; O2SAT 98; BMI 31.1
--- NOTE | 2024-06-22 20:37 | EKG12_ITS ---
Test Reason : CP Blood Pressure : */* mmHG Vent. Rate : 66 BPM Atrial Rate : 66 BPM P-R Int : 164 ms QRS Dur : 86 ms QT Int : 400 ms P-R-T Axes : 41 19 15 degrees QTcB Int : 419 ms Normal sinus rhythm with sinus arrhythmia Normal ECG Confirmed by ALTHEA VILLALBA, AWAIS ([id number]), dictionary editor GEETA TINSLEY ([id number]) on 06/23/2024 1:54:33 PM Referred By: Confirmed By: AWAIS OH MD
[2024-06-22 20:47] LABS: Absolute Lymphocyte Count 1.77 X10^3/uL (0.83-4.51); Absolute Neutrophil Count 5.3 X10^3/uL (2.0-7.7); Basophil# 0.07 X10^3/uL; Basophil% 0.8 % (0-1); Eosinophil# 0.71 X10^3/uL; Eosinophils% 8.2 % (0-5); Hemoglobin 14.4 g/dL (13.0-16.5); Lymphocyte # 1.77 X10^3/ul (0.83-4.51); Lymphocyte % 20.6 % (19-41); Mean Corp Hgb Conc 33.5 g/dL (32-36); Mean Corpuscular Hgb 31.3 pg (27.0-32.0); Mean Corpuscular Volume 93.5 fL (80-94); Mean Platelet Vol. 8.4 fl (6.2-12.0); Monocyte# 0.77 X10^3/uL; Monocyte% 8.9 % (0-10); NRBC Flagged by Analyzer 0 % (0-5); Neutrophil # 5.26 X10^3/uL (2.7-7.7); Neutrophil % 61.2 % (47-70); Platelet Count 285 K/mm3 (150-450); RBC Distribution Width CV 14.1 % (11.6-14.6); RBC Distribution Width SD 48.5 fl (35.1-43.9); White Blood Count 8.6 K/mm3 (4.4-11.0)
--- NOTE | 2024-06-22 21:00 | RAD_ITS ---
STUDY: X-RAY CHEST REASON FOR EXAM: Male, 69 years old. Chest pain TECHNIQUE: Single AP portable view of the chest. COMPARISON: July 03, 2022 FINDINGS: The lungs are clear and expanded. There is no demonstrated pleural abnormality. Normal size heart. Normal mediastinum and jona. Normal visualized pulmonary arteries. Normal visualized aortic arch and descending thoracic aorta. There are diffuse degenerative changes of the visualized thoracic spine. Normal visualized ribs, clavicles, and shoulders. There is postoperative change of the right neck. There is no demonstrated abnormality of the visualized soft tissue structures of the upper abdomen. RAD/Chest 1 View (Portable) IMPRESSION: Degenerative changes, as described above. No demonstrated acute cardiopulmonary process. Electronically Signed: Phani Horan MD at 22:01 EDT ,
[2024-06-22 21:11] LABS: Anion Gap 5 (5-15); BUN 14 mg/dL (7-18); Calcium,Total 9.5 mg/dL (8.5-10.1); Chloride 104 mmol/L (98-107); Creatinine, Serum 1.17 mg/dL (0.70-1.30); EST Glomerular Filtration Rate 66 mL/min (>60); Est Glom Filt Rate - Afr Amer 79 mL/min (>60); Estimated Creatinine Clearance 67.11 ml/min; Glucose 125 mg/dL (74-106); Potassium 4.8 mmol/L (3.5-5.1); Sodium Level 138 mmol/L (136-145); Troponin-I HS (w/2H Reflex) 5 pg/mL (3.0-78.0)
[2024-06-22 21:32] VITALS: BP 130/73; PULSE 65; RESP 12; O2SAT 98
[2024-06-22 22:00] VITALS: BP 126/72; PULSE 63; RESP 16; O2SAT 95
--- NOTE | 2024-06-22 22:08 | EDS_ITS ---
HPI History of Present Illness Chief Complaint: Chest Pain [facility] Medical History Cancer of lower jaw bone Home Medications ?Medication ?Instructions ?Recorded ?Last Taken ?Type allopurinol 300 mg tablet 300 mg PO DAILY 12/31/21 Unknown History aspirin 325 mg capsule 325 mg PO DAILY 12/31/21 Unknown History atenolol 50 mg tablet 50 mg PO DAILY 12/31/21 Unknown History chlorhexidine gluconate 0.12 % 15 ml mucous membrane TID 12/31/21 Unknown History mouthwash docusate sodium 50 mg/5 mL oral 100 mg PO BID 12/31/21 Unknown History liquid esomeprazole magnesium 40 mg 40 mg PO DAILY 12/31/21 Unknown History granules delayed release for susp hydrochlorothiazide 50 mg tablet 50 mg PO DAILY 12/31/21 Unknown History metformin 500 mg tablet 500 mg feeding tube DAILY 12/31/21 Unknown History oxycodone 5 mg/5 mL oral solution 5 mg PO Q6H PRN PRN Breakthrough 12/31/21 Unknown History Pain, Moderate pioglitazone 45 mg tablet 45 mg feeding tube DAILY 12/31/21 Unknown History sennosides 8.6 mg tablet (senna) 8.6 mg PO DAILY 12/31/21 Unknown History levofloxacin 250 mg/10 mL oral 750 mg (30 mL) PO DAILY 7 days 07/03/22 Unknown Rx solution #210 mL levofloxacin 750 mg tablet 750 mg PO DAILY 7 days #7 tabs 07/03/22 Unknown Rx gabapentin PO 06/22/24 Unknown History Allergy/AdvReac Type Severity Reaction Status Date / Time pneumococcal vaccine Allergy PT UNSURE Verified 06/22/24 20:35 OF REACTION clarithromycin (From Biaxin) AdvReac PT UNSURE Verified 06/22/24 20:35 OF REACTION empagliflozin (From AdvReac Other Verified 06/22/24 20:35 Jardiance) glipizide AdvReac PT UNSURE Verified 06/22/24 20:35 OF REACTION losartan AdvReac PT UNSURE Verified 06/22/24 20:35 OF REACTION Surgical History Hx of tracheostomy S/P percutaneous endoscopic gastrostomy (PEG) tube placement Social History Smoking Status: Never smoker EXAM Physical Exam Const Vital Signs: 06/22/24 20:32 06/22/24 21:21 06/22/24 21:21 Temperature 98.3 F Temperature Source Oral Pulse Rate 72 Respiratory Rate 16 Respiratory Effort Normal Blood Pressure 157/101 H Blood Pressure Mean 119 Pulse Ox 98 Oxygen Delivery Method Room Air Room Air 06/22/24 21:32 06/22/24 22:00 06/22/24 23:00 Temperature Temperature Source Pulse Rate 65 63 65 Respiratory Rate 12 16 16 Respiratory Effort Blood Pressure 130/73 H 126/72 H 137/67 H Blood Pressure Mean 92 90 90 Pulse Ox 98 95 95 Oxygen Delivery Method Room Air Room Air Room Air 06/22/24 23:59 06/23/24 01:00 06/23/24 02:00 Temperature Temperature Source Pulse Rate 60 61 60 Respiratory Rate 16 16 16 Respiratory Effort Blood Pressure 139/77 H 139/78 H 122/74 H Blood Pressure Mean 97 98 90 Pulse Ox 99 99 98 Oxygen Delivery Method Room Air Room Air Room Air 06/23/24 02:45 Temperature 97.8 F Temperature Source Pulse Rate 76 Respiratory Rate 16 Respiratory Effort Blood Pressure 130/99 H Blood Pressure Mean 109 Pulse Ox 95 Oxygen Delivery Method MDM MDM MDM Narrative Medical decision making narrative: HISTORY OF PRESENT ILLNESS: 69-year-old male history of lower jaw cancer presents with chest pain. Notes sternal chest pain/pressure that began approximately 5 PM. Notes radiates to the back. Denies association with food. No cough fever chills. No syncope. The patient denies recent surgery in the last 4 weeks or immobilization in the last 3 days, denies previous diagnosis of DVT or PE, hemoptysis, unilateral leg swelling or malignancy with treatment the last 6 months or palliative. No estrogen use noted. Patient denies sudden onset of pain, no tearing sensation, no migratory symptoms, no new numbness, weakness or loss of sensation. Patient denies family history or personal history of Connective tissue disorders (Marfan's Syndrome, Lamar Danlos etc) REVIEW OF SYSTEMS: Pertinent positives: Chest pain Pertinent negatives: Vomiting, fever, cough, leg swelling PHYSICAL EXAM: Nursing triage notes reviewed, Vital signs reviewed Constitutional: please see mdm HENT: MMM Eyes: Pupils equal round and reactive to light, Extraocular muscles intact Neck: No stridor, no JVD, full neck ROM Lungs: Clear to auscultation, No wheezing or rales. No increased work of breathing, no conversational dyspnea, no accessory muscle use, no nasal flaring. No respiratory distress noted Heart: Regular rate and rhythm, No murmurs, No rubs and No gallops, 2+ distal pulses (radial, femoral, posterior tibial) in all extremities Abdomen: Soft, there is no tenderness, rigidity, rebound or guarding, no obvious peritoneal signs, no palpable pulsatile abdominal masses, no auscultated abdominal bruit : No CVAT Extremities: No edema Neuro: No focal neurological deficits, cranial nerves II through XII intact, 5/5 strength in all extremities. Intact sensation to light touch in all extremities, 2+ reflexes bilateral patella tendons. Normal gait. No ataxia. Skin: No rash or lesions noted MEDICAL DECISION MAKING: Chief Complaint: Chest pain External records reviewed: Reviewed prior cardiovascular testing Factors affecting care: Type 2 diabetes, hypertension, hypothyroidism Social determinants of health: none History obtained from others: none Consults: none [facility] Narrative: The patient was initially hemodynamically stable, initially hypertensive, 157/101 oh afebrile and nontoxic-appearing. Exam without focal cardiopulmonary maladies. Stigmata VTE. I considered the following differential diagnosis: ACS, arrhythmia, anemia, pneumothorax, pericarditis, PE, aortic dissection Protocol labs images were ordered per triage secondary to poor department of conditions including high volume and acuity EKG, chest x-ray, CBC, BMP and troponin were ordered. ALL IMAGES (IF OBTAINED) HAVE BEEN PERSONALLY REVIEWED AND INTERPRETED BY MYSELF. The following labs were placed per protocol secondary to high acuity and high volume. CBC without leukocytosis, severe anemia, no thrombocytopenia. BMP without evidence of significant electrolyte abnormalities, no anion gap, no acute kidney injury. High-sensitivity troponin is negative, no evidence of myocardial ischemia x 2 I have personally reviewed the patient's chest x-ray. Chest x-ray is unremarkable for pulmonary edema, pneumothorax, pneumonia or focal cardiopulmonary abnormality. After I evaluated the patient did add on a D-dimer given current chemotherapy history of cancer. D-dimer elevated Will add on CTA CTA negative for PE but showed potentially some infectious or inflammatory changes right lung. On reevaluation the patient's blood pressure proved 130/99. THe Patients symptomatology is not consistent with pneumonia or infectious process (no white count, no fever, no tachycardia, no hypoxia, no tachypnea, no symptomatology cough fever chills. The etiology of patient's symptoms remains unclear however unlikely be life- threatening given negative troponins, reassuring CTA, normal vital signs etc. The patient and/or family, caregivers express understanding. The patient and/or family, caregivers agrees with the plan. Shared decision making: I will have a discussion with the patient and or visitors regarding risk/benefits of further testing or admission. They will be made aware of of the risk/benefits inherent in this decision they will be given the opportunity to voice understanding. Total critical care time today provided was at least 0 minutes. This excludes separately billable procedures. Critical care time (if documented) is secondary to the patient having high probability of clinically significant/life threatening deterioration in the patient's condition which required my urgent intervention. Impression: 1. Chest pain 2. Elevated D-dimer Dispo: Discharge home This note was generated with InSample dictation software. It may contain incorrect words, spelling, and punctuation that were not noted in review of the chart prior to signing. Lab Data Labs: Laboratory Results - last 24 hr 06/22/24 06/22/24 20:44 22:50 WBC 8.6 RBC 4.60 Hgb 14.4 Hct 43.0 MCV 93.5 MCH 31.3 MCHC 33.5 RDW Std Deviation 48.5 H RDW Coeff of Shira 14.1 Plt Count 285 MPV 8.4 Immature Gran % (Auto) 0.300 Neut % (Auto) 61.2 Lymph % (Auto) 20.6 [place] % (Auto) 8.9 Eos % (Auto) 8.2 H Baso % (Auto) 0.8 Absolute Neuts (auto) 5.3 Absolute Lymphs (auto) 1.77 Nucleated RBC % 0 D-Dimer Quant (PE/DVT) 1.17 H* Sodium 138 Potassium 4.8 Chloride 104 Carbon Dioxide 29.0 Anion Gap 5 BUN 14 Creatinine 1.17 Estim Creat Clear Calc 67.11 Est GFR (MDRD) Af Amer 79 Est GFR (MDRD) Non-Af 66 BUN/Creatinine Ratio 12.0 Glucose 125 H Calcium 9.5 Troponin I High Sens 5 4 Radiography Diagnostic Testing: Clinical Impression(s) from Imaging Studies Chest X-Ray 06/22/24 21:00 IMPRESSION: Degenerative changes, as described above. No demonstrated acute cardiopulmonary process. Electronically Signed: Phani Horan MD at 22:01 EDT , Chest CTA 06/22/24 22:42 IMPRESSION: 1. No pulmonary embolism. 2. Mild scattered groundglass pulmonary opacities in the right upper lobe and right middle lobe which may represent a mild inflammatory or infectious process. 3. Fluid within the esophagus possibly representing gastroesophageal reflux. Electronically Signed: Ellis Gaxiola DO at 0:33 EDT , Discharge Plan Triage Chief Complaint: Chest Pain ED Provider: Ab Lopez Dx/Rx/DC Orders Instructions: Chest Pain [facility] Prescriptions: No Action allopurinol 300 mg Tablet 300 mg PO DAILY atenolol 50 mg Tablet 50 mg PO DAILY chlorhexidine gluconate 0.12 % Mouthwash 15 ml MUCOUS MEMBRANE TID aspirin 325 mg Capsule 325 mg PO DAILY docusate sodium 50 mg/5 mL Liquid 100 mg PO BID metformin 500 mg Tablet 500 mg feeding tube DAILY hydrochlorothiazide 50 mg Tablet 50 mg PO DAILY oxycodone 5 mg/5 mL Solution 5 mg PO Q6H PRN PRN (Reason: Breakthrough Pain, Moderate) esomeprazole magnesium [address] For Susp In Packet 40 mg PO DAILY sennosides [senna] 8.6 mg Tablet 8.6 mg PO DAILY pioglitazone 45 mg Tablet 45 mg feeding tube DAILY levofloxacin 750 mg tablet 750 mg PO DAILY 7 Days Qty: 7 0RF levofloxacin 250 mg/10 mL solution 750 mg PO DAILY 7 Days Qty: 210 0RF gabapentin PO [facility] [Primary Care Provider] - Activity Restrictions/Additional Instructions: Thank you for trusting us with your care today! Please take Tylenol (2 pills, 650 mg), ibuprofen (2 pills, 400 mg) every 6 hours as needed for pain and fever control. Please return to the emergency department if your symptoms change or worsen. Please follow with your primary care physician for further outpatient evaluation and management. Print Language: Macedonian Disposition Disposition: Home, Self Care Discharge Date/Time: 06/23/24 02:49
[2024-06-22 22:40] LABS: D-Dimer Quantitative (DVT/PE) 1.17 FEU/ug/m (0.27-0.49)
--- OUTSIDE RECORDS SUMMARY | 2024-06-22 22:40 | XMS RPT_ITS | CCD ---
Author Organization [facility] Care Team Providers Care Saw Maker Name Role Phone Unknown, Unknown Unavailable Unavailable Unavailable Unavailable Unavailable Unavailable None, No PCP Unavailable Unavailable Required, No Pcp Unavailable Unavailable Sharon Gray Unavailable Unavailable ENT Team Unavailable Unavailable MD SHARON GRAY Admitting Unavailable Self, [facility] Referring Unavailable MD SHARON GRAY Attending Unavailable UNKNOWN, UNKNOWN Primary Care Unavailable MD SHARON GRAY Attending Unavailable DISLADO ADIA MANNING Admitting Unava ilable Patient, Unavailable Referring Unavailable MD SHARON GRAY Attending Unavailable MD SHARON GRAY Attending Unavailable MD SHARON GRAY Attending Unavailable MD SHARON GRAY Attending Unavailable UNKNOWN, UNKNOWN Primary Care Unavailable Bienvenido Goldman Attending Unavailable UNKNOWN, UNKNOWN Primary Care Unavailable MD SHARON GRAY Attending Unavailable MD SHARON GRAY Referring Unavailable Allergies Allergy Classification Reported Allergen(s) Allergy Type Date of Onset Reaction(s) Facility (11 sources) Clarithromycin; Translations: [Biaxin] Drug Allergy [facility] Work Phone: (11 sources) empagliflozin; Translations: [Jardiance TABS] Drug Allergy [facility] Work Phone: (13 sources) glipiZIDE; Translations: [glipiZIDE TABS] Drug Allergy Unknown [facility] Work Phone: (13 sources) Lisinopril; Translations: [lisinopril] Drug Allergy Unknown [facility] Work Phone: (13 sources) Losartan; Translations: [losartan] Drug Allergy Unknown [facility] Work Phone: (2 sources) Clarithromycin Drug Allergy Unknown [facility] (2 sources) empagliflozin Drug Allergy Unknown [facility] (2 sources) pneumococcal vaccines Unknown [facility] Medications Current Medications Medication Drug Class(es) Dates Sig (Normalized) Sig (Original) allopurinol 300 mg oral tablet (2 sources) Xanthine Oxidase Inhibitor allopurinol 300 mg oral tablet ; 1 tab(s) by PEG tube once a day Quantity: 0 Refills: 0 Ordered: 18-Dec-2021 Douglasa, Felice Generic Substitution Allowed aspirin 325 mg oral tablet (7 sources) Platelet Aggregation Inhibitor, Nonsteroidal Anti-inflammatory Drug Start: 12-20-2021 End: 01-18-2022 aspirin 325 mg oral tablet ; 1 tab(s) by PEG tube once a day . Quantity: 30 Refills: 0 Ordered: 20-Dec-2021 Nifiorellaa, Felice Start: 20-Dec-2021 End: 18-Jan-2022 Generic Substitution Allowed Comments: Take with food or milk. Start: 12-20-2021 take 1 tablet by simeon th once daily SM Aspirin 325 MG Oral Tablet TAKE 1 TABLET VIA PEG TUBE ONCE DAILY Quantity: 30 Refills: 0 Ordered: 20-Dec-2021 DO Start : 20-Dec-2021 Active Comment on above: Take with food or mi lk. benzonatate 100 mg oral capsule (2 sources) Non-narcotic Antitussive benzona camargo 100 mg oral capsule ; 1 tab(s) oral prn Quantity: 0 Refills: 0 Ordered: 01-Dec-2021 Madina Blackmon Status: Discontinued Generic Substitution Allowed dimethicone 12 mg/ml topical lotion (2 sources) Start: 12-20-2021 Ashely topical lotion ; Apply topically to thigh 2 times a day . Quantity: 1 Refills: 0 Ordered: 20-Dec-2021 Douglasa, Felice Start: 20-Dec-2021 Generic Substitution Allowed Comments: For external use only. Comment on above: For external use onl y. esomeprazole 40 mg granules for oral suspension (2 sources) Proton Pump Inhibitor Start: 12-20-2021 End: 01-18-2022 esomeprazole 40 mg oral powder for reconstitution, delayed release ; 1 each by PEG tube once a day . Quantity: 30 Refills: 0 Ordered: 20-Dec-2021 Felice Elizabeth Start: 20-Dec-2021 End: 18-Jan-2022 Generic Substitution Allowed Comments: Obtain medical advice before taking any non-prescription drugs as some may affect the action of this medication.Take medication on an empty stomach 1 hour before or 2 to 3 hours after a meal unless otherwise directed by your doctor. Comment on above: Obtain medical advic e before taking any non-prescription drugs as some may affect the action of this medication.Take medication on an empty stomach 1 hour before or 2 to 3 hours after a meal unless otherwise directed by your doctor. ibuprofen 800 mg oral tablet (2 sources) Nonsteroidal Anti-inflammatory Drug ibuprofen 800 mg oral tablet ; 1 tab(s) oral prn Quantity: 0 Refills: 0 Ordered: 01-Dec-2021 Madina Blackmon Status: Discontinued Generic Substitution Allowed petrolatum 1 mg/mg topical ointment (2 sources) Start: 12-20-2021 petrolatum topical ointment ; Apply topically to incisions 3 times a day. Quantity: 1 Refills: 0 Ordered: 20-Dec-2021 Felice Elizabeth Start: 20-Dec-2021 Generic Substitution Allowed Comments: For external use only. Comment on above: For external use onl y. Completed/Discontinued Medications Medication Drug Class(es) Dates Sig (Normalized) Sig (Original) acetaminophen 32 mg/ml oral solution (2 sources) Start: 12-20-2021 End: 01-02-2022 take 15 mL by mouth every six hours acetaminophen 160 mg/5 mL oral liquid ; 15 milliliter(s) by PEG tube every 6 hours as needed for pain. Quantity: 840 Refills: 0 Ordered: 20-Dec-2021 Felice Elizabeth Start: 20-Dec-2021 End: 02-Jan-2022 Generic Substitution Allowed Comments: This product contains acetaminophen. Do not use with any other product containing acetaminophen to prevent possible liver damage. Comment on above: This product contain s acetaminophen. Do not use with any other product containing acetaminophen to prevent possible liver damage. atenolol 50 mg oral tablet (13 sources) beta-Adrenergic Judith Start: 11-29-2021 take 1 tablet by mouth once daily Atenolol 50 MG Oral Tablet TAKE 1 TABLET DAILY. Quantity: 0 Refills: 0 Ordered: 29-Nov-2021 DO Start : 29-Nov-2021 Active atenolol 50 mg o ral tablet ; 1 tab(s) by PEG tube once a day Quantity: 0 Refills: 0 Ordered: 20-Dec-2021 Felice Elizabeth Generic Substitution Allowed cephalexin 500 mg oral capsule (5 sources) Cephalosporin Antibacterial Start: 12-31-2021 End: 03-23-2022 take 1 capsule by mouth every six hours Cephalexin 500 MG Oral Capsule take 1 capsule by mouth every 6 hours Quantity: 40 Refills: 0 Ordered: 31-Dec-2021 DO Start : 31-Dec-2021 End : 23-Mar-2022 Complete chlorhexidine gluconate 1.2 mg/ml mouthwash (11 sources) Start: 12-20-2021 End: 01-18-2022 take 15 mL by mouth three times daily Chlorhexidine Gluconate 0.12 % Mouth/Throat Solution SWISH AND SPIT OUT (DO NOT SWALLOW) 15 ML BY MOUTH THREE TIMES DAILY. Quantity: 473 Refills: 0 Ordered: 20-Dec-2021 DO Start : 20-Dec-2021 Active Start: 12-06-2021 Hibiclens 4 % External Liquid use as a preoperative shower Quantity: 1 Refills: 0 Ordered: 06-Dec-2021 Lizbeth Cox Start : 06-Dec-2021 Active docusate sodium 10 mg/ml oral suspension (2 sources) Start: 12-20-2021 End: 12-26-2021 docusate sodium 10 mg/mL oral liquid ; 10 milliliter(s) by PEG tube 2 times a day. Quantity: 140 Refills: 0 Ordered: 20-Dec-2021 Felice Elizabeth Start: 20-Dec-2021 End: 26-Dec-2021 Generic Substitution Allowed Esomeprazole Magnesium 40 MG Oral Packet (10 sources) Start: 01-26-2022 take 1 dose by mouth once daily Esomeprazole Magnesium 40 MG Oral Packet Mix one packet daily with 15ml of water and give through peg tube. Quantity: 30 Refills: 0 Ordered: 26-Jan-2022 Sharon Gray MD Start : 26-Jan-2022 Active Start: 12-20-2021 take 1 dose by mouth once daily Esomeprazole Magnesium 40 MG Oral Packet DISSOLVE 1 PACKET IN WATER AND TAKE VIA PEG TUBE ONCE DAILY Quantity: 30 Refills: 0 Ordered: 22-Dec-2021 DO Start : 20-Dec-2021 Active hydroCHLOROthiazide 50 mg oral tablet (13 sources) Thiazide Diuretic Start: 11-29-2021 take 1 tablet by mouth once daily hydroCHLOROthiazide 50 MG Oral Tablet TAKE 1 TABLET DAILY. Quantity: 0 Refills: 0 Ordered: 29-Nov-2021 DO Start : 29-Nov-2021 Active hydroCHLOROthiaz michelle 50 mg oral tablet ; 1 tab(s) by PEG tube once a day Quantity: 0 Refills: 0 Ordered: 18-Dec-2021 Douglasa, Felice Generic Substitution Allowed levoFLOXacin 750 mg oral tablet (6 sources) Quinolone Antimicrobial Start: 01-05-2022 End: 01-17-2022 take 1 tablet by mouth once daily levoFLOXacin 750 MG Oral Tablet TAKE ONE TABLET BY GASTROSTOMY TUBE ONCE DAILY Quantity: 13 Refills: 0 Ordered: 05-Jan-2022 DO Start : 05-Jan-2022 Active Comment on above: Avoid prolonged or e xcessive exposure to direct and/or artificial sunlight while taking this medication.Do not take dairy products, antacids, or iron preparations within one hour of this medication.Finish all this medication unless otherwise directed by prescriber.May cause drowsiness or dizziness.Medication should be taken with plenty of water. 24 hr metFORMIN hydrochloride 500 mg extended release oral tablet (13 sources) Biguanide Start: 11-29-2021 End: 03-23-2022 take 1 tablet by mouth once daily metFORMIN HCl ER 500 MG Oral Tablet Extended Release 24 Hour TAKE 1 TABLET DAILY DIRECTED. Quantity: 0 Refills: 0 Ordered: 29-Nov-2021 DO Start : 29-Nov-2021 End : 23-Mar-2022 Complete metFORMIN 500 mg oral tablet ; 1 tab(s) by PEG tube once a day Quantity: 0 Refills: 0 Ordered: 18-Dec-2021 Clara, Felice Generic Substitution Allowed mupirocin 0.02 mg/mg topical ointment (4 sources) RNA Synthetase Inhibitor Antibacterial Start: 12-06-2021 Mupirocin 2 % External Ointment use intra nasally 3 days before surgery twice daily Quantity: 1 Refills: 0 Ordered: 06-Dec-2021 Lizbeth Cox Start : 06-Dec-2021 Active oxyCODONE hydrochloride 5 mg oral tablet (13 sources) Opioid Agonist Start: 01-26-2022 take 1 tablet by mouth two times weekly oxyCODONE HCl - 5 MG Oral Tablet TAKE 1 TABLET Other 1 hour before dressing change. Dressing change is twice weekly Quantity: 6 Refills: 0 Ordered: 26-Jan-2022 Sharon Gray MD Start : 26-Jan-2022 Active Start: 12-20-2021 End: 12-26-2021 take 5 mL by mouth every six hours oxyCODONE HCl - 5 MG/5ML Oral Solution TAKE 5 ML Every 6 hours PRN pain Quantity: 140 Refills: 0 Ordered: 28-Dec-2021 Sharon Gray MD Start : 27-Dec-2021 Active Comment on above: Caution federal law prohibits the transfer of this drug to any person other than the person for whom it was prescribed.May cause drowsiness or dizziness.This prescription cannot be refilled.Using more of this medication than prescribed may cause serious breathing problems. pioglitazone 45 mg oral tablet (13 sources) Peroxisome Proliferator Receptor alpha Agonist, Peroxisome Proliferator Receptor gamma Agonist, Thiazolidinedione Start: 11-30-19 End: 03-23-20 22 take 1 tablet by mouth once daily Actos 45 MG Oral Tablet TAKE 1 TABLET ONCE DAILY. Quantity: 0 Refills: 0 Ordered: 29-Nov-2021 DO Start : 29-Nov-2021 End : 23-Mar-2022 Complete pioglitazone 45 mg oral tablet ; 1 tab(s) by PEG tube once a day Quantity: 0 Refills: 0 Ordered: 18-Dec-2021 Felice Elizabeth Generic Substitution Allowed 0.25 mg, 0.5 mg dose 1.5 ml semaglutide 1.34 mg/ml pen injector (10 sources) Ozempic (0.25 or 0.5 MG/DOSE) 2 MG/1.5ML Subcutaneous Solution Pen-injector weekly Quantity: 0 Refills: 0 Ordered: 26-Dec-2021 DO Active semaglutide ; 0 once a week Quantity: 0 Refills: 0 Ordered: 06-Dec-2021 Madina Blackmon Status: Other Generic Substitution Allowed Ozempic (1 mg do se) ; 1 dose subcutaneous Quantity: 0 Refills: 0 Ordered: 01-Dec-2021 Madina Blackmon Status: Discontinued Generic Substitution Allowed sennosides, nursing home 8.6 mg oral tablet (7 sources) Start: 12-20-2021 End: 12-26-2021 senna 8.6 mg oral tablet ; 1 tab(s) by PEG tube once a day. Quantity: 7 Refills: 0 Ordered: 20-Dec-2021 Felice Elizabeth Start: 20-Dec-2021 End: 26-Dec-2021 Generic Substitution Allowed Start: 12-20-2021 take 1 tablet by simeon once daily SM Senna Laxative 8.6 MG Oral Tablet TAKE 1 TABLET VIA PEG TUBE ONCE DAILY Quantity: 7 Refills: 0 Ordered: 20-Dec-2021 DO Start : 20-Dec-2021 Active traMADol hydrochloride 50 mg oral tablet (13 sources) Opioid Agonist Start: 12-06-2021 take 1-2 tablets by mouth every four to six hours as needed for pain, then take 8 tablets by mouth once daily as needed for pain traMADol HCl - 50 MG Oral Tablet TAKE 1 TO 2 TABLETS EVERY 4 TO 6 HOURS NEEDED FOR PAIN. NO MORE THAN 8 TABLETS PER DAY. Quantity: 56 Refills: 0 Ordered: 06-Dec-2021 Bienvenido Goldman MD Start : 06-Dec-2021 Active Start: 11-29-2021 Ultram 50 MG O ral Tablet Quantity: 0 Refills: 0 Ordered: 29-Nov-2021 DO Start : 29-Nov-2021 Active take 2 tablets by mo [facility] once daily traMADol 50 mg oral tablet ; 2 tab(s) oral once a day Quantity: 0 Refills: 0 Ordered: 06-Dec-2021 Madina Blackmon Status: Discontinued Generic Substitution Allowed traZODone hydrochloride 50 mg oral tablet (8 sources) Serotonin Reuptake Inhibitor Start: 11-29-2021 traZODone HCl - 50 M G Oral Tablet Quantity: 0 Refills: 0 Ordered: 29-Nov-2021 DO Start : 29-Nov-2021 Active take 1 tablet by mouth once sheila y traZODone 50 mg oral tablet ; 1 tab(s) oral once a day Quantity: 0 Refills: 0 Ordered: 01-Dec-2021 Madina Blackmon Status: Discontinued Generic Substitution Allowed Problems Active Problems Problem Classification Problem Date Documented Da te Episodic/Chronic Blindness and vision defects (1 source) Unspecified visual loss; Translations: [Unspecified visual loss] Onset: 2 Chronic Cancer of head and neck (20 sources) Malignant tumor of oral cavity ; 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, unspecified] Onset: 2 12-14-2021 Chronic Cancer of head and neck (1 source) H/O: malignant neoplasm; Translations: [Personal history of malignant neoplasm of other and unspecified oral cavity and pharynx] Onset: 2 01-03-2022 Episodic Cardiac dysrhythmias (2 sources) Tachycardia; Translations: [Tachycardia, unspecified] Onset: 2 01-03-2022 Episodic Deficiency and other anemia (2 sources) Deficiency and other anemia 12-19-2021 Diabetes mellitus with complications (1 source) Type 2 diabetes mellitus with hyperglycemia; Translations: [Type 2 diabetes mellitus with hyperglycemia] Onset: 2 Chronic Diabetes mellitus without complication (2 sources) Diabetes mellitus; Translations: [Diabetes mellitus without mention of complication, type II or unspecified type, not stated as uncontrolled] Onset: 2 01-03-2022 Chronic Diabetes mellitus without complication (1 source) Diabetes mellitus without complication 01-03-2022 Esophageal disorders (3 sources) Gastroesophageal reflux disease; Translations: [Esophageal reflux] Onset: 2 01-03-2022 Chronic Essential hypertension (3 sources) Essential hypertension; Translations: [Unspecified essential hypertension] Onset: 2 01-03-2022 Chronic Immunizations and screening for infectious disease (1 source) Contact with or exposure to other viral diseases Onset: 2 01-03-2022 Episodic Lymphadenitis (2 sources) Cervical lymphadenopathy; Translations: [Enlargement of lymph nodes] 12-15-2021 Episodic Nutritional deficiencies (1 source) Moderate protein-calorie malnutrition; Translations: [Moderate protein-calorie malnutrition] Onset: 2 Chronic Open wounds of extremities (6 sources) Injury of lower extremity; Translations: [Multiple and unspecified open wound of lower limb, without mention of complication] 01-03-2022 Episodic Open wounds of head; neck; and trunk (1 source) Jaw injury; Translations: [Open wound of jaw, without mention of complication] 01-01-2022 Episodic Osteoarthritis (1 source) Bilateral primary osteoarthritis of knee; Translations: [Bilateral primary osteoarthritis of knee] Onset: 2 Chronic Other aftercare (1 source) Drug indicated; Translations: [Long-term (current) use of other medications] Onset: 2 01-03-2022 Episodic Other aftercare (1 source) Already on aspirin; Translations: [Long-term (current) use of aspirin] Onset: 2 01-03-2022 Episodic Other aftercare (1 source) Long-term current use of drug therapy; Translations: [Long-term (current) use of other medications] Onset: 2 01-03-2022 Episodic Other diseases of veins and lymphatics (1 source) 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; Translations: [Oth noninfective disorders of lymphatic vessels and nodes] Onset: 2 Chronic Other gastrointestinal disorders (1 source) Gastrostomy status; Translations: [Gastrostomy status] Onset: 2 Chronic Other gastrointestinal disorders (2 sources) Dysphagia; Translations: [Dysphagia, unspecified] 12-15-2021 Episodic Other injuries and conditions due to external causes (1 source) Local infection of wound; Translations: [Posttraumatic wound infection not elsewhere classified] 01-01-2022 Episodic Other nutritional; endocrine; and metabolic disorders (1 source) Obesity, unspecified; Translations: [Obesity, unspecified] Onset: 2 Chronic Other nutritional; endocrine; and metabolic disorders (1 source) Body mass index (BMI) 30.0-30.9, adult; Translations: [Body mass index [BMI] 30.0-30.9, adult] Onset: 2 Chronic Other nutritional; endocrine; and metabolic disorders (1 source) Body mass index (BMI) 31.0-31.9, adult; Translations: [Body mass index [BMI] 31.0-31.9, adult] Onset: 2 Chronic Other nutritional; endocrine; and metabolic disorders (1 source) Other disorders of phosphorus metabolism; Translations: [Other disorders of phosphorus metabolism] Onset: 2 Chronic Other nutritional; endocrine; and metabolic disorders (1 source) Hypomagnesemia; Translations: [Hypomagnesemia] Onset: 2 Chronic Other nutritional; endocrine; and metabolic disorders (1 source) Morbid (severe) obesity due to excess calories; Translations: [Morbid (severe) obesity due to excess calories] Onset: 2 Chronic Other nutritional; endocrine; and metabolic disorders (1 source) Body mass index (BMI) 32.0-32.9, adult; Translations: [Body mass index [BMI] 32.0-32.9, adult] Onset: 2 Chronic Other upper respiratory disease (1 source) Tracheostomy status; Translations: [Tracheostomy status] Onset: 2 Chronic Secondary malignancies (1 source) Secondary and unspecified malignant neoplasm of lymph nodes of head, face and neck; Translations: [Sec and unsp malig neoplasm of nodes of head, face and neck] Onset: 2 Chronic Unclassified (2 sources) SL: DIRECT LARYNGOSCOPY, ESOPHAGOSCOPY, BRONCHOSCOPY; TRACHEOSTOMY; NECK DISSECTION; CO/SEE SOARIAN 11-29-2021 Comment on above: SL: DIRECT LARYNGOSC OPY, ESOPHAGOSCOPY, BRONCHOSCOPY; TRACHEOSTOMY; NECK DISSECTION; CO/SEE SOARIAN Unclassified (1 source) POV/FLAP 12-18-2021 Comment on above: POV/FLAP Unclassified (1 source) 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 Unclassified (2 sources) CELLULITIS L03.90 01-01-2022 Comment on above: CELLULITIS L03.90 Unclassified (1 source) FUV 2 WEEKS 12-26-2021 Comment on above: FUV 2 WEEKS Unclassified (1 source) Wound of jaw 01-01-2022 Unclassified (1 source) Wound infection 01-01-2022 Unclassified (1 source) Cellulitis of right thigh 01-03-2022 Unclassified (1 source) Close exposure to COVID-19 virus 01-03-2022 Unclassified (1 source) History of malignant neoplasm of lip, oral cavity, or pharynx 01-03-2022 Unclassified (1 source) Encounter for long-term (current) use of other medications 01-03-2022 Unclassified (1 source) Current use of aspirin 01-03-2022 Unclassified (1 source) correction (current) use of oral hypoglycemic drugs 01-03-2022 Unclassified (1 source) Wound of lower extremity 01-03-2022 Unclassified (1 source) Contact with and (suspected) exposure to COVID-19; Translations: [Contact with and (suspected) exposure to COVID-19] Onset: 2 Past or Other Problems Problem Classification Problem Date Documented Da te Episodic/Chronic Acute posthemorrhagic anemia (1 source) Acute posthemorrhagic anemia; Translations: [Acute posthemorrhagic anemia] Onset: 12-21-2021 Episodic Allergic reactions (3 sources) Allergy status to other antibiotic agents status; Translations: [Allergy status to other drugs, medicaments and biological substances status] Onset: 01-05-2022 Episodic Complication of device; implant or graft (3 sources) Skin graft (allograft) (autograft) failure; Translations: [Skin graft (allograft) (autograft) failure] Onset: 01-01-2022 Episodic Complications of surgical procedures or medical care (2 sources) Disruption of external operation (surgical) wound, not elsewhere classified, initial encounter; Translations: [Postprocedural seroma of skin and subcutaneous tissue following other procedure] Onset: 01-05-2022 Episodic Fluid and electrolyte disorders (1 source) Hypokalemia; Translations: [Hypokalemia] Onset: 12-21-2021 Episodic Other aftercare (1 source) Other long-term (current) drug therapy; Translations: [Other long-term (current) drug therapy] Onset: 01-05-2022 Episodic Other aftercare (1 source) director long term care (current) use of oral hypoglycemic drugs; Translations: [correction (current) use of oral hypoglycemic drugs] Onset: 01-05-2022 Episodic Other aftercare (1 source) correction (current) use of aspirin; Translations: [director long term care (current) use of aspirin] Onset: 01-05-2022 Episodic Other gastrointestinal disorders (1 source) Dysphagia, unspecified; Translations: [Dysphagia, unspecified] Onset: 12-21-2021 Episodic Pleurisy; pneumothorax; pulmonary collapse (1 source) Chylous effusion; Translations: [Chylous effusion] Onset: 12-21-2021 Episodic Residual codes; unclassified (1 source) Other specified postprocedural states; Translations: [Other specified postprocedural states] Onset: 01-05-2022 Episodic Residual codes; unclassified (1 source) Acquired absence of other organs; Translations: [Acquired absence of other organs] Onset: 01-05-2022 Episodic Skin and subcutaneous tissue infections (5 sources) Cellulitis; Translations: [Cellulitis and abscess of unspecified sites] Onset: 01-03-2022 01-01-2022 Episodic Unclassified (1 source) OTHER 01-01-2022 Comment on above: OTHER Results Test Name Value Interpretation Reference Range Facility Tobacco Screening.on Adult depression screening assessment No [facility] Work Phone: Fall risk assessment a) No falls within the last year [facility] Work Phone: Tobacco use status [facility] b) No [facility] Work Phone: [phone] Tobacco Screening.on Fall risk assessment a) No falls within the last year [facility] Work Phone: [phone] Tobacco use status [facility] b) No [facility] Work Phone: [phone] MAGNESIUMon 01-06-2022 MAGNESIUM Canceled [facility] Comment on above: Order Comment: TEST MAGNESIUM WAS CANCELLED, 01/06/2022 03:43 Performed By: #### M G ####[id number] [place] [address] RENAL FUNCTION PANELon 01-06 ALBUMIN [facility] Comment on above: Order Comment: TEST RENAL FUNCTION PANEL WAS CANCELLED, 01/06/2022 03:43 Performed By: #### R ENAL ####[id number] [place] [address] ANION GAP [facility] Comment on above: Order Comment: TEST RENAL FUNCTION PANEL WAS CANCELLED, 01/06/2022 03:43 Performed By: #### R ENAL ####[id number] [place] [address] BICARBONATE [facility] Comment on above: Order Comment: TEST RENAL FUNCTION PANEL WAS CANCELLED, 01/06/2022 03:43 Performed By: #### R ENAL ####[id number] [place] [address] CALCIUM [facility] Comment on above: Order Comment: TEST RENAL FUNCTION PANEL WAS CANCELLED, 01/06/2022 03:43 Performed By: #### R ENAL ####[id number] [place] [address] CHLORIDE [facility] Comment on above: Order Comment: TEST RENAL FUNCTION PANEL WAS CANCELLED, 01/06/2022 03:43 Performed By: #### R ENAL ####[id number] [place] [address] CREATININE [facility] Comment on above: Order Comment: TEST RENAL FUNCTION PANEL WAS CANCELLED, 01/06/2022 03:43 Performed By: #### R ENAL ####[id number] [place] [address] eGFR FEMALE [facility] Comment on above: Order Comment: TEST RENAL FUNCTION PANEL WAS CANCELLED, 01/06/2022 03:43 Result Comment: CALC ULATIONS OF ESTIMATED GFR ARE PERFORMED USING THE 2020 CKD-EPI STUDY REFIT EQUATION WITHOUT THE RACE VARIABLE FOR THE IDMS-TRACEABLE CREATININE METHODS.https://jasn.asnjournals.org/content/early/ASN .[id number] Performed By: #### R ENAL ####[id number] [place] [address] eGFR MALE Canceled Normal [facility] Comment on above: Order Comment: TEST RENAL FUNCTION PANEL WAS CANCELLED, 01/06/2022 03:43 Result Comment: CALC ULATIONS OF ESTIMATED GFR ARE PERFORMED USING THE 2020 CKD-EPI STUDY REFIT EQUATION WITHOUT THE RACE VARIABLE FOR THE IDMS-TRACEABLE CREATININE METHODS.https://jasn.asnjournals.org/content/early/ASN .5256701270 Performed By: #### R ENAL ####[id number] [place] [address] GLUCOSE Canceled Normal [facility] Comment on above: Order Comment: TEST RENAL FUNCTION PANEL WAS CANCELLED, 01/06/2022 03:43 Performed By: #### R ENAL ####[id number] [place] [address] PHOSPHORUS Canceled Normal [facility] Comment on above: Order Comment: TEST RENAL FUNCTION PANEL WAS CANCELLED, 01/06/2022 03:43 Result Comment: The performance characteristics of phosphorus testing in heparinized plasma have been validated by the individual laboratory site where testing is performed. Testing on heparinized plasma is not approved by the FDA; however, such approval is not necessary. Performed By: #### R ENAL ####[id number] [place] [address] POTASSIUM Canceled Normal [facility] Comment on above: Order Comment: TEST RENAL FUNCTION PANEL WAS CANCELLED, 01/06/2022 03:43 Performed By: #### R ENAL ####[id number] [place] [address] SODIUM Canceled Normal [facility] Comment on above: Order Comment: TEST RENAL FUNCTION PANEL WAS CANCELLED, 01/06/2022 03:43 Performed By: #### R ENAL ####[id number] [place] [address] UREA NITROGEN Canceled Normal [facility] Comment on above: Order Comment: TEST RENAL FUNCTION PANEL WAS CANCELLED, 01/06/2022 03:43 Performed By: #### R ENAL ####[id number] [place] [address] CBCon 01-05-2022 Erythrocyte distribution width (RBC) [Ratio] 12.7 % Normal 11.5 - 14.5 [facility] Comment on above: Performed By: #### C BC ####[id number] [place] [address] Hematocrit (Bld) [Volume fraction] 32.3 % Low 41.0 - 52.0 [facility] Comment on above: Performed By: #### C BC ####[id number] [place] [address] Hemoglobin (Bld) [Mass/Vol] 10.7 g/dL Low 13.5 - 17.5 [facility] Comment on above: Performed By: #### C BC ####[id number] [place] [address] MCHC (RBC) [Mass/Vol] 33.1 g/dL Normal 32.0 - 36.0 [facility] Comment on above: Performed By: #### C BC ####[id number] [place] [address] MCV (RBC) [Entitic vol] 91 fL Normal 80 - 100 [facility] Comment on above: Performed By: #### C BC ####[id number] [place] [address] NUCLEATED RBC 0.0 /100 WBC Normal 0.0-0.0 [facility] Comment on above: Performed By: #### C BC ####[id number] [place] [address] Platelets (Bld) [#/Vol] 638 10*3/uL High 150 - 450 [facility] Comment on above: Performed By: #### C BC ####[id number] [place] [address] RBC 3.54 x10E12/L Low 4.50 - 5.90 [facility] Comment on above: Performed By: #### C BC ####[id number] [place] [address] WBC (Bld) [#/Vol] 9.0 10*3/uL Normal 4.4 - 11.3 [facility] Comment on above: Performed By: #### C BC ####[id number] [place] [address] Laboratory - Hematology and Cell countson 01-05-2022 Erythrocyte distribution width (RBC) [Ratio] 12.7 % See Below -Otolaryn gology-Evie man Work Phone: Comment on above: Reference Range: 11. 5 - 14.5 Hematocrit (Bld) [Volume fraction] 32.3 % below low threshold See Below MG-Otolaryn gology-[facility]ie man Work Phone: [phone] Comment on above: Reference Range: 41. 0 - 52.0 Hemoglobin (Bld) [Mass/Vol] 10.7 g/dL below low threshold See Below MG-Otolaryn gology-[facility] man Work Phone: [phone] Comment on above: Reference Range: 13. 5 - 17.5 MCHC (RBC) [Mass/Vol] 33.1 g/dL See Below MG-Otolaryn gology-[facility]ie man Work Phone: [phone] Comment on above: Reference Range: 32. 0 - 36.0 MCV (RBC) [Entitic vol] 91 fL 80 - 100 [facility]tolaryn gology-[facility]ie [facility] Work Phone: [phone] Platelets (Bld) [#/Vol] 638 10*3/uL above high threshold 150 - 450 MG-Otolaryn gology-Evie man Work Phone: [phone] RBC (Bld) [#/Vol] 3.54 {x10E12/L} below low threshold See Below MG-Otolaryn gology-[facility] man Work Phone: [phone] Comment on above: Reference Range: 4.5 0 - 5.90 WBC (Bld) [#/Vol] 9.0 10*3/uL 4.4 - 11.3 MG-[place] laryn gology-Evie man Work Phone: [phone] Magnesium, Serumon 2 Magnesium [Mass/Vol] 1.93 mg/dL Normal 1.60 - 2.40 MG- Otolaryn gology-Evie man Work Phone: [phone] Comment on above: Reference Range: 1.6 0 - 2.40 Performed By: #### M G ####[id number] [place] [address] No Panel Informationon 01-05 0.0 {/100_WBC} 0.0-0.0 MG-Otolary n gology-Evie man Work Phone: Order Reconciliationon 01-05 Order Reconciliation Normal [facility] RENAL FUNCTION PANELon 01-05 Albumin [Mass/Vol] 2.9 g/dL Low 3.4 - 5.0 [facility] Comment on above: Performed By: #### R ENAL ####[id number] [place] [address] eGFR MALE >90 Normal >90 [facility] Comment on above: Result Comment: CALC ULATIONS OF ESTIMATED GFR ARE PERFORMED USING THE 2020 CKD-EPI STUDY REFIT EQUATION WITHOUT THE RACE VARIABLE FOR THE IDMS-TRACEABLE CREATININE METHODS.https://jasn.asnjournals.org/content//ASN .[id number] Performed By: #### R ENAL ####[id number] [place] [address] HCO3 (Bld) [Moles/Vol] 27 mmol/L Normal 21 - 32 [facility] Comment on above: Performed By: #### R ENAL ####[id number] [place] [address] Renal Function Panelon 01-05 Albumin BCP dye [Mass/Vol] 2.9 g/dL below low threshold 3.4 - 5.0 MG-Otolaryn gology-[facility] man Work Phone: Anion gap [Moles/Vol] 14 mmol/L Normal 10 - 20 MG-Otolaryn gology-[facility]ie man Work Phone: Comment on above: Performed By: #### R ENAL ####[id number] [place] [address] Calcium [Mass/Vol] 9.2 mg/dL Normal 8.6 - 10.6 [facility]-[place] laryn gology-Evie man Work Phone: Comment on above: Performed By: #### R ENAL ####[id number] [place] [address] Chloride [Moles/Vol] 98 mmol/L Normal 98 - 107 MG-O tolaryn gology-[facility]ie man Work Phone: [phone] Comment on above: Performed By: #### R ENAL ####[id number] [place] [address] CO2 [Moles/Vol] 27 mmol/L 21 - 32 MG-Otolar yn gology-Evie man Work Phone: [phone] Creatinine [Mass/Vol] 0.60 mg/dL Normal 0.50 - 1.30 MG-Otolaryn gology-Evie man Work Phone: [phone] Comment on above: Reference Range: 0.5 0 - 1.30 Performed By: #### R ENAL ####[id number] [place] [address] Glucose [Mass/Vol] 157 mg/dL High 74 - 99 MG-[place] laryn gology-Evie man Work Phone: [phone] Comment on above: Performed By: #### R ENAL ####[id number] [place] [address] Phosphate [Mass/Vol] 3.2 mg/dL Normal 2.5 - 4.9 MG-O tolaryn gology-Evie man Work Phone: [phone] Comment on above: The performance jami acteristics of phosphorus testing in heparinized plasma have been validated by the individual laboratory site where testing is performed. Testing on heparinized plasma is not approved by the FDA; however, such approval is not necessary. Result Comment: The performance characteristics of phosphorus testing in heparinized plasma have been validated by the individual laboratory site where testing is performed. Testing on heparinized plasma is not approved by the FDA; however, such approval is not necessary. Performed By: #### R ENAL ####[id number] [place] [address] Potassium [Moles/Vol] 3.9 mmol/L Normal 3.5 - 5.3 MG-Otolaryn gology-[facility]ie man Work Phone: [phone] Comment on above: Performed By: #### R ENAL ####[id number] [place] [address] Sodium [Moles/Vol] 135 mmol/L Low 136 - 145 [facility] laryn [facility]ie man Work Phone: Comment on above: Performed By: #### R ENAL ####[id number] [place] [address] Urea nitrogen [Mass/Vol] 8 mg/dL Normal 6 - 23 [facility]tolaryn gology-[facility] Work Phone: Comment on above: Performed By: #### R ENAL ####[id number] [place] [address] Renal Function Panel >90 >90 MG-O tolaryn gology-Evie man Work Phone: Comment on above: CALCULATIONS OF MICKEY MATED GFR ARE PERFORMED USING THE 2020 CKD-EPI STUDY REFIT EQUATION WITHOUT THE RACE VARIABLE FOR THE IDMS-TRACEABLE CREATININE METHODS.https://jasn.asnjournals.org/content//ASN .[id number] CBCon 01-04-2022 Erythrocyte distribution width (RBC) [Ratio] 12.9 % Normal 11.5 - 14.5 [facility] Comment on above: Performed By: #### C BC ####[id number] [place] [address] Hematocrit (Bld) [Volume fraction] 30.4 % Low 41.0 - 52.0 [facility] Comment on above: Performed By: #### C BC ####[id number] [place] [address] Hemoglobin (Bld) [Mass/Vol] 10.0 g/dL Low 13.5 - 17.5 [facility] Comment on above: Performed By: #### C BC ####[id number] [place] [address] MCHC (RBC) [Mass/Vol] 32.9 g/dL Normal 32.0 - 36.0 [facility] Comment on above: Performed By: #### C BC ####[id number] [place] [address] MCV (RBC) [Entitic vol] 90 fL Normal 80 - 100 [facility] Comment on above: Performed By: #### C BC ####[id number] [place] [address] NUCLEATED RBC 0.0 /100 WBC Normal 0.0-0.0 [facility] Comment on above: Performed By: #### C BC ####[id number] [place] [address] Platelets (Bld) [#/Vol] 668 10*3/uL High 150 - 450 [facility] Comment on above: Performed By: #### C BC ####[id number] [place] [address] RBC 3.36 x10E12/L Low 4.50 - 5.90 [facility] Comment on above: Performed By: #### C BC ####[id number] [place] [address] WBC (Bld) [#/Vol] 9.0 10*3/uL Normal 4.4 - 11.3 [facility] Comment on above: Performed By: #### C BC ####[id number] [place] [address] Consult-Wound Careon 022 Consult-Wound Care Normal [facility] Daily Progress Note-ENTon Daily Progress Note-ENT Normal [facility] Discharge [id number] [id number] Discharge Profile2 Normal [facility] Laboratory - Hematology and Cell countson 01-04-2022 Erythrocyte distribution width (RBC) [Ratio] 12.9 % See Below MG-Otolaryn gology-[facility]ie man Work Phone: Comment on above: Reference Range: 11. 5 - 14.5 Hematocrit (Bld) [Volume fraction] 30.4 % below low threshold See Below MG-Otolaryn gology-Evie man Work Phone: Comment on above: Reference Range: 41. 0 - 52.0 Hemoglobin (Bld) [Mass/Vol] 10.0 g/dL below low threshold See Below MG-Otolaryn gology-[facility] man Work Phone: [phone] Comment on above: Reference Range: 13. 5 - 17.5 MCHC (RBC) [Mass/Vol] 32.9 g/dL See Below MG-Otolaryn gology-[facility]ie man Work Phone: [phone] Comment on above: Reference Range: 32. 0 - 36.0 MCV (RBC) [Entitic vol] 90 fL 80 - 100 MG-Otolaryn gology-[facility] man Work Phone: [phone] Platelets (Bld) [#/Vol] 668 10*3/uL above high threshold 150 - 450 MG-Otolaryn gology-[facility]ie man Work Phone: [phone] RBC (Bld) [#/Vol] 3.36 {x10E12/L} below low threshold See Below MG-Otolaryn gology-Evie man Work Phone: [phone] Comment on above: Reference Range: 4.5 0 - 5.90 WBC (Bld) [#/Vol] 9.0 10*3/uL 4.4 - 11.3 [facility] laryn gology-[facility]ie man Work Phone: [phone] MAGNESIUMon 01-04-2022 Magnesium [Mass/Vol] 1.92 mg/dL Normal 1.60 - 2.40 [facility] Comment on above: Performed By: #### M G ####[id number] [address] Magnesium, Serumon Magnesium [Mass/Vol] 1.92 mg/dL See Below MG-O tolaryn gology-Evie man Work Phone: [phone] Comment on above: Reference Range: 1.6 0 - 2.40 No Panel Informationon 01-04 0.0 {/100_WBC} 0.0-0.0 MG-Otolary n gology-Evie man Work Phone: [phone] RENAL FUNCTION PANELon 01-04 Albumin [Mass/Vol] 2.9 g/dL Low 3.4 - 5.0 [facility] Comment on above: Performed By: #### R ENAL ####[id number] [place] [address] Anion gap [Moles/Vol] 15 mmol/L Normal 10 - 20 [facility] Comment on above: Performed By: #### R ENAL ####[id number] [place] [address] Calcium [Mass/Vol] 8.8 mg/dL Normal 8.6 - 10.6 [facility] Comment on above: Performed By: #### R ENAL ####[id number] [place] [address] Chloride [Moles/Vol] 98 mmol/L Normal 98 - 107 [facility] Comment on above: Performed By: #### R ENAL ####[id number] [place] [address] Creatinine [Mass/Vol] 0.58 mg/dL Normal 0.50 - 1.30 [facility] Comment on above: Performed By: #### R ENAL ####[id number] [place] [address] eGFR MALE >90 Normal >90 [facility] Comment on above: Result Comment: CALC ULATIONS OF ESTIMATED GFR ARE PERFORMED USING THE 2020 CKD-EPI STUDY REFIT EQUATION WITHOUT THE RACE VARIABLE FOR THE IDMS-TRACEABLE CREATININE METHODS.https://jasn.asnjournals.org/content//ASN .[id number] Performed By: #### R ENAL ####[id number] [place] [address] Glucose [Mass/Vol] 133 mg/dL High 74 - 99 [facility] Comment on above: Performed By: #### R ENAL ####[id number] [place] [address] HCO3 (Bld) [Moles/Vol] 27 mmol/L Normal 21 - 32 [facility] Comment on above: Performed By: #### R ENAL ####[id number] [place] [address] Phosphate [Mass/Vol] 3.3 mg/dL Normal 2.5 - 4.9 [facility] Comment on above: Result Comment: The performance characteristics of phosphorus testing in heparinized plasma have been validated by the individual laboratory site where testing is performed. Testing on heparinized plasma is not approved by the FDA; however, such approval is not necessary. Performed By: #### R ENAL ####[id number] [place] [address] Potassium [Moles/Vol] 3.7 mmol/L Normal 3.5 - 5.3 [facility] Comment on above: Performed By: #### R ENAL ####[id number] [place] [address] Sodium [Moles/Vol] 136 mmol/L Normal 136 - 145 [facility] Comment on above: Performed By: #### R ENAL ####[id number] [place] [address] Urea nitrogen [Mass/Vol] 7 mg/dL Normal 6 - 23 [facility] Comment on above: Performed By: #### R ENAL ####[id number] [place] [address] Renal Function Panelon 01-04 Albumin BCP dye [Mass/Vol] 2.9 g/dL below low threshold 3.4 - 5.0 MG-[facility]tolaryn gology-[facility]ie man Work Phone: [phone] Anion gap [Moles/Vol] 15 mmol/L 10 - 20 MG-Otolaryn gology-Evie man Work Phone: [phone] Calcium [Mass/Vol] 8.8 mg/dL 8.6 - 10.6 MG-[facility] laryn gology-Evie man Work Phone: [phone] Chloride [Moles/Vol] 98 mmol/L 98 - 107 MG-O tolaryn gology-Evie man Work Phone: [phone] CO2 [Moles/Vol] 27 mmol/L 21 - 32 MG-Otolar yn gology-Evie man Work Phone: [phone] Creatinine [Mass/Vol] 0.58 mg/dL See Below MG-Otolaryn gology-Evie man Work Phone: Comment on above: Reference Range: 0.5 0 - 1.30 Glucose [Mass/Vol] 133 mg/dL above high threshold 74 - 99 MG-Otolaryn gology-Evie man Work Phone: Phosphate [Mass/Vol] 3.3 mg/dL 2.5 - 4.9 MG-O tolaryn gology-Evie man Work Phone: Comment on above: The performance jami acteristics of phosphorus testing in heparinized plasma have been validated by the individual laboratory site where testing is performed. Testing on heparinized plasma is not approved by the FDA; however, such approval is not necessary. Potassium [Moles/Vol] 3.7 mmol/L 3.5 - 5.3 MG-Otolaryn gology-Evie man Work Phone: Sodium [Moles/Vol] 136 mmol/L 136 - 145 [facility] [facility]ie man Work Phone: Urea nitrogen [Mass/Vol] 7 mg/dL 6 - 23 MG-Otolaryn gology-Evie man Work Phone: Renal Function Panel >90 >90 MG-O tolaryn gology-Evie man Work Phone: Comment on above: CALCULATIONS OF MICKEY MATED GFR ARE PERFORMED USING THE 2020 CKD-EPI STUDY REFIT EQUATION WITHOUT THE RACE VARIABLE FOR THE IDMS-TRACEABLE CREATININE METHODS.https://jasn.asnjournals.org/content/early/ASN .4541988757 CBCon 01-03-2022 HCT Canceled Normal [facility] Comment on above: Order Comment: TEST CBC WAS CANCELLED, 01/03/2022 11:09 NO SPECIMEN RECEIVED IN LAB. Performed By: #### C BC ####[id number] [place] [address] HGB Canceled Normal [facility] Comment on above: Order Comment: TEST CBC WAS CANCELLED, 01/03/2022 11:09 NO SPECIMEN RECEIVED IN LAB. Performed By: #### C BC ####[id number] [place] [address] MCHC Canceled Normal [facility] Comment on above: Order Comment: TEST CBC WAS CANCELLED, 01/03/2022 11:09 NO SPECIMEN RECEIVED IN LAB. Performed By: #### C BC ####[id number] [place] [address] MCV Canceled Normal [facility] Comment on above: Order Comment: TEST CBC WAS CANCELLED, 01/03/2022 11:09 NO SPECIMEN RECEIVED IN LAB. Performed By: #### C BC ####[id number] [place] [address] NUCLEATED RBC Canceled Normal [facility] Comment on above: Order Comment: TEST CBC WAS CANCELLED, 01/03/2022 11:09 NO SPECIMEN RECEIVED IN LAB. Performed By: #### C BC ####[id number] [place] [address] PLT Canceled Normal [facility] Comment on above: Order Comment: TEST CBC WAS CANCELLED, 01/03/2022 11:09 NO SPECIMEN RECEIVED IN LAB. Performed By: #### C BC ####[id number] [place] [address] RBC Canceled Normal [facility] Comment on above: Order Comment: TEST CBC WAS CANCELLED, 01/03/2022 11:09 NO SPECIMEN RECEIVED IN LAB. Performed By: #### C BC ####[id number] [place] [address] RDW-CV Canceled Normal [facility] Comment on above: Order Comment: TEST CBC WAS CANCELLED, 01/03/2022 11:09 NO SPECIMEN RECEIVED IN LAB. Performed By: #### C BC ####[id number] [place] [address] WBC Canceled Normal [facility] Comment on above: Order Comment: TEST CBC WAS CANCELLED, 01/03/2022 11:09 NO SPECIMEN RECEIVED IN LAB. Performed By: #### C BC ####[id number] [place] [address] Erythrocyte distribution width (RBC) [Ratio] 13.2 % Normal 11.5 - 14.5 [facility] Comment on above: Performed By: #### C BC ####[id number] [place] [address] Hematocrit (Bld) [Volume fraction] 32.8 % Low 41.0 - 52.0 [facility] Comment on above: Performed By: #### C BC ####[id number] [place] [address] Hemoglobin (Bld) [Mass/Vol] 10.1 g/dL Low 13.5 - 17.5 [facility] Comment on above: Performed By: #### C BC ####[id number] [place] [address] MCHC (RBC) [Mass/Vol] 30.8 g/dL Low 32.0 - 36.0 [facility] Comment on above: Performed By: #### C BC ####[id number] [place] [address] MCV (RBC) [Entitic vol] 97 fL Normal 80 - 100 [facility] Comment on above: Performed By: #### C BC ####[id number] [place] [address] NUCLEATED RBC 0.0 /100 WBC Normal 0.0-0.0 [facility] Comment on above: Performed By: #### C BC ####[id number] [place] [address] Platelets (Bld) [#/Vol] 745 10*3/uL High 150 - 450 [facility] Comment on above: Performed By: #### C BC ####[id number] [place] [address] RBC 3.37 x10E12/L Low 4.50 - 5.90 [facility] Comment on above: Performed By: #### C BC ####[id number] [place] [address] WBC (Bld) [#/Vol] 8.8 10*3/uL Normal 4.4 - 11.3 [facility] Comment on above: Performed By: #### C BC ####[id number] [address] Consult-Wound Careon 022 Consult-Wound Care Normal [facility] Daily Progress Note-ENTon Daily Progress Note-ENT Normal [facility] Laboratory - Hematology and Cell countson 01-03-2022 Erythrocyte distribution width (RBC) [Ratio] 13.2 % See Below MG-[facility]tolaryn [employer] Work Phone: [phone] Comment on above: Reference Range: 11. 5 - 14.5 Hematocrit (Bld) [Volume fraction] 32.8 % below low threshold See Below MG-Otolaryn [employer]Evie man Work Phone: [phone] Comment on above: Reference Range: 41. 0 - 52.0 Hemoglobin (Bld) [Mass/Vol] 10.1 g/dL below low threshold See Below MG-Otolaryn [employer]Evie man Work Phone: [phone] Comment on above: Reference Range: 13. 5 - 17.5 MCHC (RBC) [Mass/Vol] 30.8 g/dL below low threshold See Below MG-Otolaryn gology-Evie man Work Phone: [phone] Comment on above: Reference Range: 32. 0 - 36.0 MCV (RBC) [Entitic vol] 97 fL 80 - 100 MG-Otolaryn gology-[place] Work Phone: [phone] Platelets (Bld) [#/Vol] 745 10*3/uL above high threshold 150 - 450 [facility]tolaryn [employer] [place] Work Phone: [phone] RBC (Bld) [#/Vol] 3.37 {x10E12/L} below low threshold See Below MG-[facility]tolaryn [employer]Evie man Work Phone: [phone] Comment on above: Reference Range: 4.5 0 - 5.90 WBC (Bld) [#/Vol] 8.8 10*3/uL 4.4 - 11.3 [facility] l[facility]-Evie man Work Phone: MAGNESIUMon 01-03-2022 MAGNESIUM Canceled Normal [facility] Comment on above: Order Comment: TEST MAGNESIUM WAS CANCELLED, 01/03/2022 11:21 NO SPECIMEN RECEIVED IN LAB. Performed By: #### M G ####[id number] [place] [address] Magnesium [Mass/Vol] 2.26 mg/dL Normal 1.60 - 2.40 [facility] Comment on above: Performed By: #### M G ####[id number] [place] [address] Magnesium, Serumon Magnesium [Mass/Vol] 2.26 mg/dL See Below MG-O tolaryn [employer]-Evie man Work Phone: Comment on above: Reference Range: 1.6 0 - 2.40 No Panel Informationon 01-03 0.0 {/100_WBC} 0.0-0.0 MG-Otolary n gology-Evie man Work Phone: RENAL FUNCTION PANELon 01-03 ALBUMIN Canceled Normal [facility] Comment on above: Order Comment: TEST RENAL FUNCTION PANEL WAS CANCELLED, 01/03/2022 11:21 NO SPECIMENRECEIVED IN LAB. Performed By: #### R CALI ####[id number] [place] [address] ANION GAP Canceled Normal [facility] Comment on above: Order Comment: TEST RENAL FUNCTION PANEL WAS CANCELLED, 01/03/2022 11:21 NO SPECIMENRECEIVED IN LAB. Performed By: #### R ENAL ####[id number] [place] [address] BICARBONATE Canceled Normal [facility] Comment on above: Order Comment: TEST RENAL FUNCTION PANEL WAS CANCELLED, 01/03/2022 11:21 NO SPECIMENRECEIVED IN LAB. Performed By: #### R ENAL ####[id number] [place] [address] CALCIUM Canceled Normal [facility] Comment on above: Order Comment: TEST RENAL FUNCTION PANEL WAS CANCELLED, 01/03/2022 11:21 NO SPECIMENRECEIVED IN LAB. Performed By: #### R ENAL ####[id number] [place] [address] CHLORIDE Canceled Normal [facility] Comment on above: Order Comment: TEST RENAL FUNCTION PANEL WAS CANCELLED, 01/03/2022 11:21 NO SPECIMENRECEIVED IN LAB. Performed By: #### R ENAL ####[id number] [place] [address] CREATININE Canceled [facility] Comment on above: Order Comment: TEST RENAL FUNCTION PANEL WAS CANCELLED, 01/03/2022 11:21 NO SPECIMENRECEIVED IN LAB. Performed By: #### R ENAL ####[id number] [place] [address] eGFR FEMALE Canceled [facility] Comment on above: Order Comment: TEST RENAL FUNCTION PANEL WAS CANCELLED, 01/03/2022 11:21 NO SPECIMENRECEIVED IN LAB. Result Comment: CALC ULATIONS OF ESTIMATED GFR ARE PERFORMED USING THE 2020 CKD-EPI STUDY REFIT EQUATION WITHOUT THE RACE VARIABLE FOR THE IDMS-TRACEABLE CREATININE METHODS.https://jasn.asnjournals.org/content/early/ASN .[email or web address] Performed By: #### R ENAL ####[id number] [place] [address] eGFR MALE Canceled [facility] Comment on above: Order Comment: TEST RENAL FUNCTION PANEL WAS CANCELLED, 01/03/2022 11:21 NO SPECIMENRECEIVED IN LAB. Result Comment: CALC ULATIONS OF ESTIMATED GFR ARE PERFORMED USING THE 2020 CKD-EPI STUDY REFIT EQUATION WITHOUT THE RACE VARIABLE FOR THE IDMS-TRACEABLE CREATININE METHODS.https://jasn.asnjournals.org/content/early/ASN .6891217940 Performed By: #### R ENAL ####[id number] [place] [address] GLUCOSE Canceled [facility] Comment on above: Order Comment: TEST RENAL FUNCTION PANEL WAS CANCELLED, 01/03/2022 11:21 NO SPECIMENRECEIVED IN LAB. Performed By: #### R ENAL ####[id number] [place] [address] PHOSPHORUS Canceled [facility] Comment on above: Order Comment: TEST RENAL FUNCTION PANEL WAS CANCELLED, 01/03/2022 11:21 NO SPECIMENRECEIVED IN LAB. Result Comment: The performance characteristics of phosphorus testing in heparinized plasma have been validated by the individual laboratory site where testing is performed. Testing on heparinized plasma is not approved by the FDA; however, such approval is not necessary. Performed By: #### R ENAL ####[id number] [place] [address] POTASSIUM Canceled [facility] Comment on above: Order Comment: TEST RENAL FUNCTION PANEL WAS CANCELLED, 01/03/2022 11:21 NO SPECIMENRECEIVED IN LAB. Performed By: #### R ENAL ####[id number] [place] [address] SODIUM Canceled [facility] Comment on above: Order Comment: TEST RENAL FUNCTION PANEL WAS CANCELLED, 01/03/2022 11:21 NO SPECIMENRECEIVED IN LAB. Performed By: #### R ENAL ####[id number] [place] [address] UREA NITROGEN Canceled [facility] Comment on above: Order Comment: TEST RENAL FUNCTION PANEL WAS CANCELLED, 01/03/2022 11:21 NO SPECIMENRECEIVED IN LAB. Performed By: #### R ENAL ####[id number] [place] [address] Albumin [Mass/Vol] 2.9 g/dL Low 3.4 - 5.0 [facility] Comment on above: Performed By: #### R ENAL ####[id number] [place] [address] Anion gap [Moles/Vol] 16 mmol/L Normal 10 - 20 [facility] Comment on above: Performed By: #### R ENAL ####[id number] [place] [address] Calcium [Mass/Vol] 9.0 mg/dL Normal 8.6 - 10.6 [facility] Comment on above: Performed By: #### R ENAL ####[id number] [place] [address] Chloride [Moles/Vol] 98 mmol/L Normal 98 - 107 [facility] Comment on above: Performed By: #### R ENAL ####[id number] [place] [address] Creatinine [Mass/Vol] 0.61 mg/dL Normal 0.50 - 1.30 [facility] Comment on above: Performed By: #### R ENAL ####[id number] [place] [address] eGFR MALE >90 Normal >90 [facility] Comment on above: Result Comment: CALC ULATIONS OF ESTIMATED GFR ARE PERFORMED USING THE 2020 CKD-EPI STUDY REFIT EQUATION WITHOUT THE RACE VARIABLE FOR THE IDMS-TRACEABLE CREATININE METHODS.https://jasn.asnjournals.org/content/early//ASN .1870221649 Performed By: #### R ENAL ####[id number] [place] [address] Glucose [Mass/Vol] 149 mg/dL High 74 - 99 [facility] Comment on above: Performed By: #### R ENAL ####[id number] [place] [address] HCO3 (Bld) [Moles/Vol] 26 mmol/L Normal 21 - 32 [facility] Comment on above: Performed By: #### R ENAL ####[id number] [place] [address] Phosphate [Mass/Vol] 3.5 mg/dL Normal 2.5 - 4.9 [facility] Comment on above: Result Comment: The performance characteristics of phosphorus testing in heparinized plasma have been validated by the individual laboratory site where testing is performed. Testing on heparinized plasma is not approved by the FDA; however, such approval is not necessary.MILD HEMOLYSIS DETECTED. The result may be falsely elevated due tohemolysis or other interferents. Clinical correlation is recommended.Repeat testing may be considered. Performed By: #### R ENAL ####[id number] [place] [address] Potassium [Moles/Vol] 4.1 mmol/L Normal 3.5 - 5.3 [facility] Comment on above: Result Comment: MILD HEMOLYSIS DETECTED. The result may be falsely elevated due tohemolysis or other interferents. Clinical correlation is recommended.Repeat testing may be considered. Performed By: #### R ENAL ####[id number] [place] [address] Sodium [Moles/Vol] 136 mmol/L Normal 136 - 145 [facility] Comment on above: Performed By: #### R ENAL ####[id number] [place] [address] Urea nitrogen [Mass/Vol] 9 mg/dL Normal 6 - 23 [facility] Comment on above: Performed By: #### R ENAL ####[id number] [place] [address] Renal Function Panelon 01-03 Albumin BCP dye [Mass/Vol] 2.9 g/dL below low threshold 3.4 - 5.0 [facility] Work Phone: [phone] Anion gap [Moles/Vol] 16 mmol/L 10 - 20 [facility] Work Phone: [phone] Calcium [Mass/Vol] 9.0 mg/dL 8.6 - 10.6 [facility] laryn gology-Evie man Work Phone: [phone] Chloride [Moles/Vol] 98 mmol/L 98 - 107 [facility] tolaryn gology-Evie man Work Phone: [phone] CO2 [Moles/Vol] 26 mmol/L 21 - 32 [facility]-Otolar yn gology-Evie man Work Phone: Creatinine [Mass/Vol] 0.61 mg/dL See Below [facility] renata-Evie man Work Phone: [phone] Comment on above: Reference Range: 0.5 0 - 1.30 Glucose [Mass/Vol] 149 mg/dL above high threshold 74 - 99 [facility] renata-vEie man Work Phone: Phosphate [Mass/Vol] 3.5 mg/dL 2.5 - 4.9 [facility] niurka yanez-Evie man Work Phone: [phone] Comment on above: The performance jami acteristics of phosphorus testing in heparinized plasma have been validated by the individual laboratory site where testing is performed. Testing on heparinized plasma is not approved by the FDA; however, such approval is not necessary.MILD HEMOLYSIS DETECTED. The result may be falsely elevated due tohemolysis or other interferents. Clinical correlation is recommended.Repeat testing may be considered. Potassium [Moles/Vol] 4.1 mmol/L 3.5 - 5.3 [facility] renata-Evie man Work Phone: Comment on above: MILD HEMOLYSIS DETEC CHANG. The result may be falsely elevated due tohemolysis or other interferents. Clinical correlation is recommended.Repeat testing may be considered. Sodium [Moles/Vol] 136 mmol/L 136 - 145 [facility] larantonio yanez-Evie man Work Phone: Urea nitrogen [Mass/Vol] 9 mg/dL 6 - 23 [facility] renata-Evie man Work Phone: Renal Function Panel >90 >90 [facility]-O niurka yanez-Evie gillespie Work Phone: Comment on above: CALCULATIONS OF MICKEY MATED GFR ARE PERFORMED USING THE 2020 CKD-EPI STUDY REFIT EQUATION WITHOUT THE RACE VARIABLE FOR THE IDMS-TRACEABLE CREATININE METHODS.https://jasn.asnjournals.org/content//ASN .3755956965 Admission Risk Screen - Adul ton 01-02-2022 Admission Risk Screen - Adult [facility] CBCon 01-02-2022 HCT Canceled [facility] Comment on above: Order Comment: TEST CBC WAS CANCELLED, 01/02/2022 07:23 NO SPECIMEN RECEIVED IN LAB. Performed By: #### C BC ####[id number] [place] [address] HGB Canceled [facility] Comment on above: Order Comment: TEST CBC WAS CANCELLED, 01/02/2022 07:23 NO SPECIMEN RECEIVED IN LAB. Performed By: #### C BC ####[id number] [place] [address] MCHC Canceled [facility] Comment on above: Order Comment: TEST CBC WAS CANCELLED, 01/02/2022 07:23 NO SPECIMEN RECEIVED IN LAB. Performed By: #### C BC ####[id number] [place] [address] MCV Canceled [facility] Comment on above: Order Comment: TEST CBC WAS CANCELLED, 01/02/2022 07:23 NO SPECIMEN RECEIVED IN LAB. Performed By: #### C BC ####[id number] [place] [address] NUCLEATED RBC Canceled [facility] Comment on above: Order Comment: TEST CBC WAS CANCELLED, 01/02/2022 07:23 NO SPECIMEN RECEIVED IN LAB. Performed By: #### C BC ####[id number] [place] [address] PLT Canceled [facility] Comment on above: Order Comment: TEST CBC WAS CANCELLED, 01/02/2022 07:23 NO SPECIMEN RECEIVED IN LAB. Performed By: #### C BC ####[id number] [place] [address] RBC Canceled [facility] Comment on above: Order Comment: TEST CBC WAS CANCELLED, 01/02/2022 07:23 NO SPECIMEN RECEIVED IN LAB. Performed By: #### C BC ####[id number] [place] [address] RDW-CV Canceled [facility] Comment on above: Order Comment: TEST CBC WAS CANCELLED, 01/02/2022 07:23 NO SPECIMEN RECEIVED IN LAB. Performed By: #### C BC ####[id number] [place] [address] WBC Canceled [facility] Comment on above: Order Comment: TEST CBC WAS CANCELLED, 01/02/2022 07:23 NO SPECIMEN RECEIVED IN LAB. Performed By: #### C BC ####[id number] [place] [address] HCT Canceled [facility] Comment on above: Order Comment: TEST CBC WAS CANCELLED, 01/02/2022 07:19 NO SPECIMEN RECEIVED IN LAB. Performed By: #### C BC ####[id number] [place] [address] HGB Canceled [facility] Comment on above: Order Comment: TEST CBC WAS CANCELLED, 01/02/2022 07:19 NO SPECIMEN RECEIVED IN LAB. Performed By: #### C BC ####[id number] [place] [address] MCHC Canceled [facility] Comment on above: Order Comment: TEST CBC WAS CANCELLED, 01/02/2022 07:19 NO SPECIMEN RECEIVED IN LAB. Performed By: #### C BC ####[id number] [place] [address] MCV Canceled [facility] Comment on above: Order Comment: TEST CBC WAS CANCELLED, 01/02/2022 07:19 NO SPECIMEN RECEIVED IN LAB. Performed By: #### C BC ####[id number] [place] [address] NUCLEATED RBC Canceled [facility] Comment on above: Order Comment: TEST CBC WAS CANCELLED, 01/02/2022 07:19 NO SPECIMEN RECEIVED IN LAB. Performed By: #### C BC ####[id number] [place] [address] PLT Canceled [facility] Comment on above: Order Comment: TEST CBC WAS CANCELLED, 01/02/2022 07:19 NO SPECIMEN RECEIVED IN LAB. Performed By: #### C BC ####[id number] [place] [address] RBC Canceled [facility] Comment on above: Order Comment: TEST CBC WAS CANCELLED, 01/02/2022 07:19 NO SPECIMEN RECEIVED IN LAB. Performed By: #### C BC ####[id number] [place] [address] RDW-CV Canceled [facility] Comment on above: Order Comment: TEST CBC WAS CANCELLED, 01/02/2022 07:19 NO SPECIMEN RECEIVED IN LAB. Performed By: #### C BC ####[id number] [place] [address] WBC Canceled [facility] Comment on above: Order Comment: TEST CBC WAS CANCELLED, 01/02/2022 07:19 NO SPECIMEN RECEIVED IN LAB. Performed By: #### C BC ####[id number] [place] [address] Cult, Misc + smearon 022 Bacteria identified Cx Nom (Unsp spec) Abnormal [facility]ie man Work Phone: Daily Progress Note-ENTon Daily Progress Note-ENT [facility] Discharge Planning [id number] 0 01-02-2022 Discharge Planning Note2 [facility] GLUCOSE-POCTon 01-02-2022 Glucose [Mass/Vol] 114 mg/dL High 74 - 99 [facility] Comment on above: Performed By: #### G ALLISON ####[id number] [place] [address] Glucose [Mass/Vol] 146 mg/dL High 74 - 99 [facility] Comment on above: Performed By: #### G ALLISON ####[id number] [place] [address] Glucose [Mass/Vol] 164 mg/dL High 74 - 99 [facility] Comment on above: Performed By: #### G ALLISON ####[id number] [place] [address] Laboratory - Chemistry and C hemistry - challengeon 01-02-2022 Glucose [Mass/Vol] 114 mg/dL above high threshold 74 - 99 [facility]ie [facility] Work Phone: Glucose [Mass/Vol] 146 mg/dL above high threshold 74 - 99 [facility]Evie man Work Phone: MAGNESIUMon 01-02-2022 MAGNESIUM Canceled [facility] Comment on above: Order Comment: TEST MAGNESIUM WAS CANCELLED, 01/02/2022 07:19 NO SPECIMEN RECEIVED IN LAB. Performed By: #### M G ####[id number] [place] [address] MISCELLANEOUS CULT./SM.BACT. on 01-02-2022 MISCELLANEOUS CULT./SM.BACT. [facility] Comment on above: Performed By: #### M ISC ####[id number] [place] [address] Nutrition Therapy-Assessment on 01-02-2022 Nutrition Therapy-Assessment [facility] Patient Profile - Adult v2on 01-02-2022 Patient Profile - Adult v2 [facility] Preop Checkliston 01-02-2022 Preop Checklist [facility] RENAL FUNCTION PANELon 01-02 ALBUMIN Canceled [facility] Comment on above: Order Comment: TEST RENAL FUNCTION PANEL WAS CANCELLED, 01/02/2022 07:19 NO SPECIMENRECEIVED IN LAB. Performed By: #### R ENAL ####[id number] [place] [address] ANION GAP Canceled [facility] Comment on above: Order Comment: TEST RENAL FUNCTION PANEL WAS CANCELLED, 01/02/2022 07:19 NO SPECIMENRECEIVED IN LAB. Performed By: #### R ENAL ####[id number] [place] [address] BICARBONATE Canceled [facility] Comment on above: Order Comment: TEST RENAL FUNCTION PANEL WAS CANCELLED, 01/02/2022 07:19 NO SPECIMENRECEIVED IN LAB. Performed By: #### R ENAL ####[id number] [place] [address] CALCIUM Canceled [facility] Comment on above: Order Comment: TEST RENAL FUNCTION PANEL WAS CANCELLED, 01/02/2022 07:19 NO SPECIMENRECEIVED IN LAB. Performed By: #### R ENAL ####[id number] [place] [address] CHLORIDE Canceled [facility] Comment on above: Order Comment: TEST RENAL FUNCTION PANEL WAS CANCELLED, 01/02/2022 07:19 NO SPECIMENRECEIVED IN LAB. Performed By: #### R ENAL ####[id number] [place] [address] CREATININE Canceled [facility] Comment on above: Order Comment: TEST RENAL FUNCTION PANEL WAS CANCELLED, 01/02/2022 07:19 NO SPECIMENRECEIVED IN LAB. Performed By: #### R ENAL ####[id number] [place] [address] eGFR FEMALE Canceled [facility] Comment on above: Order Comment: TEST RENAL FUNCTION PANEL WAS CANCELLED, 01/02/2022 07:19 NO SPECIMENRECEIVED IN LAB. Result Comment: CALC ULATIONS OF ESTIMATED GFR ARE PERFORMED USING THE 2020 CKD-EPI STUDY REFIT EQUATION WITHOUT THE RACE VARIABLE FOR THE IDMS-TRACEABLE CREATININE METHODS.https://jasn.asnjournals.org/content/early//ASN .4301809168 Performed By: #### R ENAL ####[id number] [place] [address] eGFR MALE Canceled [facility] Comment on above: Order Comment: TEST RENAL FUNCTION PANEL WAS CANCELLED, 01/02/2022 07:19 NO SPECIMENRECEIVED IN LAB. Result Comment: CALC ULATIONS OF ESTIMATED GFR ARE PERFORMED USING THE 2020 CKD-EPI STUDY REFIT EQUATION WITHOUT THE RACE VARIABLE FOR THE IDMS-TRACEABLE CREATININE METHODS.https://jasn.asnjournals.org/content/early/ASN .4604734934 Performed By: #### R ENAL ####[id number] [place] [address] GLUCOSE Canceled [facility] Comment on above: Order Comment: TEST RENAL FUNCTION PANEL WAS CANCELLED, 01/02/2022 07:19 NO SPECIMENRECEIVED IN LAB. Performed By: #### R ENAL ####[id number] [place] [address] PHOSPHORUS Canceled [facility] Comment on above: Order Comment: TEST RENAL FUNCTION PANEL WAS CANCELLED, 01/02/2022 07:19 NO SPECIMENRECEIVED IN LAB. Result Comment: The performance characteristics of phosphorus testing in heparinized plasma have been validated by the individual laboratory site where testing is performed. Testing on heparinized plasma is not approved by the FDA; however, such approval is not necessary. Performed By: #### R ENAL ####[id number] [place] [address] POTASSIUM Canceled [facility] Comment on above: Order Comment: TEST RENAL FUNCTION PANEL WAS CANCELLED, 01/02/2022 07:19 NO SPECIMENRECEIVED IN LAB. Performed By: #### R ENAL ####[id number] [place] [address] SODIUM Canceled [facility] Comment on above: Order Comment: TEST RENAL FUNCTION PANEL WAS CANCELLED, 01/02/2022 07:19 NO SPECIMENRECEIVED IN LAB. Performed By: #### R ENAL ####[id number] [place] [address] UREA NITROGEN Canceled [facility] Comment on above: Order Comment: TEST RENAL FUNCTION PANEL WAS CANCELLED, 01/02/2022 07:19 NO SPECIMENRECEIVED IN LAB. Performed By: #### R ENAL ####[id number] [place] [address] URINALYSISon 01-02-2022 Appearance (U) Canceled [facility] Comment on above: Order Comment: TEST URINALYSIS WAS CANCELLED, 01/02/2022 06:38 NO SPECIMEN RECEIVED IN LAB. Performed By: #### U A ####[id number] [place] [address] ASCORBIC ACID Canceled [facility] Comment on above: Order Comment: TEST URINALYSIS WAS CANCELLED, 01/02/2022 06:38 NO SPECIMEN RECEIVED IN LAB. Result Comment: Conc entrations > = 20 mg/dL of ascorbic acid can be expected to cause stronginterference in the reactions testing for glucose, nitrite and blood. It isrecommended to discontinue Vitamin C administration and retest in 10 hours. Performed By: #### U A ####[id number] [place] [address] Bilirubin Ql (U) Canceled [facility] Comment on above: Order Comment: TEST URINALYSIS WAS CANCELLED, 01/02/2022 06:38 NO SPECIMEN RECEIVED IN LAB. Performed By: #### U A ####[id number] [place] [address] Color (U) Canceled [facility] Comment on above: Order Comment: TEST URINALYSIS WAS CANCELLED, 01/02/2022 06:38 NO SPECIMEN RECEIVED IN LAB. Performed By: #### U A ####[id number] [place] [address] Glucose Ql (U) Canceled [facility] Comment on above: Order Comment: TEST URINALYSIS WAS CANCELLED, 01/02/2022 06:38 NO SPECIMEN RECEIVED IN LAB. Performed By: #### U A ####[id number] [place] [address] Hemoglobin Ql (U) Canceled [facility] Comment on above: Order Comment: TEST URINALYSIS WAS CANCELLED, 01/02/2022 06:38 NO SPECIMEN RECEIVED IN LAB. Performed By: #### U A ####[id number] [place] [address] Ketones Ql (U) Canceled [facility] Comment on above: Order Comment: TEST URINALYSIS WAS CANCELLED, 01/02/2022 06:38 NO SPECIMEN RECEIVED IN LAB. Performed By: #### U A ####[id number] [place] [address] Leukocyte esterase Test strip Ql (U) Canceled [facility] Comment on above: Order Comment: TEST URINALYSIS WAS CANCELLED, 01/02/2022 06:38 NO SPECIMEN RECEIVED IN LAB. Performed By: #### U A ####[id number] [place] [address] Nitrite Ql (U) Canceled [facility] Comment on above: Order Comment: TEST URINALYSIS WAS CANCELLED, 01/02/2022 06:38 NO SPECIMEN RECEIVED IN LAB. Performed By: #### U A ####[id number] [place] [address] pH Canceled [facility] Comment on above: Order Comment: TEST URINALYSIS WAS CANCELLED, 01/02/2022 06:38 NO SPECIMEN RECEIVED IN LAB. Performed By: #### U A ####[id number] [place] [address] Protein Ql (U) Canceled [facility] Comment on above: Order Comment: TEST URINALYSIS WAS CANCELLED, 01/02/2022 06:38 NO SPECIMEN RECEIVED IN LAB. Performed By: #### U A ####[id number] [place] [address] Specific gravity (U) [Rel density] Canceled [facility] Comment on above: Order Comment: TEST URINALYSIS WAS CANCELLED, 01/02/2022 06:38 NO SPECIMEN RECEIVED IN LAB. Performed By: #### U A ####[id number] [place] [address] UROBILINOGEN Canceled [facility] Comment on above: Order Comment: TEST URINALYSIS WAS CANCELLED, 01/02/2022 06:38 NO SPECIMEN RECEIVED IN LAB. Performed By: #### U A ####[id number] [place] [address] CBC AND DIFFERENTIALon 01-01 % AUTOMATED IMMATURE GRAN 1.0 % High 0.0 - 0.9 [facility] Comment on above: Result Comment: Rose ture Granulocyte Count (IG) includes promyelocytes, myelocytes and metamyelocytes but does not include bands. Percent differential counts (%) should be interpreted in the context of the absolute cell counts (cells/L). Performed By: #### C BCDF ####[id number] [place] [address] Basophils (Bld) [#/Vol] 0.09 10*3/uL Normal 0.00 - 0.10 [facility] Comment on above: Result Comment: Auto mated WBC differential has been confirmed by manual smear. Performed By: #### C BCDF ####[id number] [place] [address] Basophils/100 WBC (Bld) 1.0 % Normal 0.0 - 2.0 [facility] Comment on above: Performed By: #### C BCDF ####[id number] [place] [address] Eosinophils (Bld) [#/Vol] 0.36 10*3/uL Normal 0.00 - 0.70 [facility] Comment on above: Performed By: #### C BCDF ####[id number] [place] [address] Eosinophils/100 WBC (Bld) 4.1 % Normal 0.0 - 6.0 [facility] Comment on above: Performed By: #### C BCDF ####[id number] [place] [address] Erythrocyte distribution width (RBC) [Ratio] 12.7 % Normal 11.5 - 14.5 [facility] Comment on above: Performed By: #### C BCDF ####[id number] [place] [address] Hematocrit (Bld) [Volume fraction] 32.4 % Low 41.0 - 52.0 [facility] Comment on above: Performed By: #### C BCDF ####[id number] [place] [address] Hemoglobin (Bld) [Mass/Vol] 11.5 g/dL Low 13.5 - 17.5 [facility] Comment on above: Performed By: #### C BCDF ####[id number] [place] [address] Lymphocytes (Bld) [#/Vol] 1.57 10*3/uL Normal 1.20 - 4.80 [facility] Comment on above: Performed By: #### C BCDF ####[id number] [place] [address] Lymphocytes/100 WBC (Bld) 18.0 % Normal 13.0 - 44.0 [facility] Comment on above: Performed By: #### C BCDF ####[id number] [place] [address] MCHC (RBC) [Mass/Vol] 35.5 g/dL Normal 32.0 - 36.0 [facility] Comment on above: Performed By: #### C BCDF ####[id number] [place] [address] MCV (RBC) [Entitic vol] 87 fL Normal 80 - 100 [facility] Comment on above: Performed By: #### C BCDF ####[id number] [place] [address] Monocytes (Bld) [#/Vol] 0.88 10*3/uL Normal 0.10 - 1.00 [facility] Comment on above: Performed By: #### C BCDF ####[id number] [place] [address] Monocytes/100 WBC (Bld) 10.1 % Normal 2.0 - 10.0 [facility] Comment on above: Performed By: #### C BCDF ####[id number] [place] [address] Neutrophils (Bld) [#/Vol] 5.75 10*3/uL Normal 1.20 - 7.70 [facility] Comment on above: Performed By: #### C BCDF ####[id number] [place] [address] Neutrophils/100 WBC (Bld) 65.8 % Normal 40.0 - 80.0 [facility] Comment on above: Performed By: #### C BCDF ####[id number] [place] [address] NUCLEATED RBC 0.0 /100 WBC Normal 0.0-0.0 [facility] Comment on above: Performed By: #### C BCDF ####[id number] [place] [address] Platelets (Bld) [#/Vol] 974 10*3/uL High 150 - 450 [facility] Comment on above: Result Comment: Plat elet count verified by smear review. Performed By: #### C BCDF ####[id number] [place] [address] RBC 3.72 x10E12/L Low 4.50 - 5.90 [facility] [facility] [place] Comment on above: Performed By: #### C BCDF ####[id number] [place] [address] WBC (Bld) [#/Vol] 8.7 10*3/uL Normal 4.4 - 11.3 [facility] Comment on above: Performed By: #### C BCDF ####[id number] [place] [address] COMPREHENSIVE PANELon 2021 Albumin [Mass/Vol] 3.6 g/dL Normal 3.4 - 5.0 [facility] [place] Comment on above: Performed By: #### C MP ####[id number] [place] [address] ALP [Catalytic activity/Vol] 66 U/L Normal 33 - 136 [facility] Comment on above: Performed By: #### C MP ####[id number] [place] [address] ALT [Catalytic activity/Vol] 34 U/L Normal 10 - 52 [facility] [place] Comment on above: Result Comment: Anabel ents treated with Sulfasalazine may generate falsely decreased results for ALT. Performed By: #### C MP ####[id number] [place] [address] Anion gap [Moles/Vol] 13 mmol/L Normal 10 - 20 [facility] Comment on above: Performed By: #### C MP ####[id number] [place] [address] AST [Catalytic activity/Vol] 24 U/L Normal 9 - 39 [facility] [place] Comment on above: Performed By: #### C MP ####[id number] [place] [address] Bilirubin [Mass/Vol] 0.5 mg/dL Normal 0.0 - 1.2 [facility] [place] Comment on above: Performed By: #### C MP ####[id number] [place] [address] Calcium [Mass/Vol] 10.2 mg/dL Normal 8.6 - 10.6 [facility] [place] Comment on above: Performed By: #### C MP ####[id number] [place] [address] Chloride [Moles/Vol] 95 mmol/L Low 98 - 107 [facility] [place] Comment on above: Performed By: #### C MP ####[id number] [place] [address] Creatinine [Mass/Vol] 0.65 mg/dL Normal 0.50 - 1.30 [facility] [place] Comment on above: Performed By: #### C MP ####[id number] [place] [address] eGFR MALE >90 Normal >90 [facility] Comment on above: Result Comment: CALC ULATIONS OF ESTIMATED GFR ARE PERFORMED USING THE 2020 CKD-EPI STUDY REFIT EQUATION WITHOUT THE RACE VARIABLE FOR THE IDMS-TRACEABLE CREATININE METHODS.https://jasn.asnjournals.org/content//ASN .[id number] Performed By: #### C MP ####[id number] [place] [address] Glucose [Mass/Vol] 232 mg/dL High 74 - 99 [facility] Comment on above: Performed By: #### C MP ####[id number] [place] [address] HCO3 (Bld) [Moles/Vol] 30 mmol/L Normal 21 - 32 [facility] [place] Comment on above: Performed By: #### C MP ####[id number] [place] [address] Potassium [Moles/Vol] 3.3 mmol/L Low 3.5 - 5.3 [facility] [place] Comment on above: Performed By: #### C MP ####[id number] [place] [address] Protein [Mass/Vol] 8.7 g/dL High 6.4 - 8.2 [facility] [place] Comment on above: Performed By: #### C MP ####[id number] [place] [address] Sodium [Moles/Vol] 135 mmol/L Low 136 - 145 [facility] [place] Comment on above: Performed By: #### C MP ####[id number] [place] [address] Urea nitrogen [Mass/Vol] 13 mg/dL Normal 6 - 23 [facility] [place] Comment on above: Performed By: #### C MP ####[id number] [place] [address] Complete Blood Count + Diffe lauroon 01-01-2022 Basophils/100 WBC (Bld) 1.0 % 0.0 - 2.0 MG-Otolaryn [employer]Evie man Work Phone: Erythrocyte distribution width (RBC) [Ratio] 12.7 % See Below MG-Otolaryn [employer] Work Phone: Comment on above: Reference Range: 11. 5 - 14.5 Hematocrit (Bld) [Volume fraction] 32.4 % below low threshold See Below MG-Otolaryn [employer]Evie man Work Phone: Comment on above: Reference Range: 41. 0 - 52.0 Hemoglobin (Bld) [Mass/Vol] 11.5 g/dL below low threshold See Below MG-Otolaryn [employer]Evie man Work Phone: [phone] Comment on above: Reference Range: 13. 5 - 17.5 Lymphocytes/100 WBC (Bld) 18.0 % See Below MG-Otolarantonio [employer]santiagoy-Evie [place] Work Phone: [phone] Comment on above: Reference Range: 13. 0 - 44.0 MCHC (RBC) [Mass/Vol] 35.5 g/dL See Below MG-Otolarantonio [employer]Ev[place] Work Phone: [phone] Comment on above: Reference Range: 32. 0 - 36.0 MCV (RBC) [Entitic vol] 87 fL 80 - 100 MG-Otolaryn [employer] Work Phone: [phone] Monocytes/100 WBC (Bld) 10.1 % 2.0 - 10.0 MG-Otolarantonio [employer]santiagoyAgricanEvie [place] Work Phone: [phone] Neutrophils/100 WBC (Bld) 65.8 % See Below MGAgricanOtolarantonio [employer]santiagoyAgricanEvie [place] Work Phone: [phone] Comment on above: Reference Range: 40. 0 - 80.0 Platelets (Bld) [#/Vol] 974 10*3/uL above high threshold 150 - 450 MG-Otolarantonio [employer]antiagoyAgricanEvie [place] Work Phone: [phone] Comment on above: Platelet count verif ied by smear review. RBC (Bld) [#/Vol] 3.72 {x10E12/L} below low threshold See Below MGAgricanOtolarantonio [employer]santiagoyAgricanEvie [place] Work Phone: [phone] Comment on above: Reference Range: 4.5 0 - 5.90 WBC (Bld) [#/Vol] 8.7 10*3/uL 4.4 - 11.3 MG-Oliver pranav [employer]oy[employer]Evie [place] Work Phone: [phone] Complete Blood Count + Differential 0.09 {x10E9/L} See Below MGAgricanOtolarantonio [employer]santiagoyAgricanEvie [place] Work Phone: [phone] Comment on above: Reference Range: 0.0 0 - 0.10Automated WBC differential has been confirmed by manual smear. Complete Blood Count + Differential 0.36 {x10E9/L} See Below [employer] Work Phone: Comment on above: Reference Range: 0.0 0 - 0.70 Complete Blood Count + Differential 0.88 {x10E9/L} See Below [employer] Work Phone: [phone] Comment on above: Reference Range: 0.1 0 - 1.00 Complete Blood Count + Differential 1.57 {x10E9/L} See Below [employer] Work Phone: [phone] Comment on above: Reference Range: 1.2 0 - 4.80 Complete Blood Count + Differential 5.75 {x10E9/L} See Below [employer] Work Phone: [phone] Comment on above: Reference Range: 1.2 0 - 7.70 Complete Blood Count + Differential 4.1 % 0.0 - 6.0 [employer] Work Phone: Complete Blood Count + Differential 1.0 % above high threshold 0.0 - 0.9 [employer] Work Phone: Comment on above: Immature Granulocyte Count (IG) includes promyelocytes, myelocytes and metamyelocytes but does not include bands. Percent differential counts (%) should be interpreted in the context of the absolute cell counts (cells/L). Complete Blood Count + Differential 0.0 {/100_WBC} 0.0-0.0 [employer] Work Phone: Consult-ENTon 01-01-2022 Consult-ENT This report has been cancelled. Normal [facility] Covid 19 Resultson 2 SARS-CoV-2 (COVID-19) RNA EMORY+probe Ql (Unsp spec) Normal [facility] Cult, Misc + smearon 022 Bacteria identified Cx Nom (Unsp spec) [employer] Work Phone: DUPLEX LOWER EXTREMITY VEINS , RIGHT, UNILATERALon 01-01-2022 DUPLEX LOWER EXTREMITY VEINS, RIGHT, UNILATERAL Normal [facility] Electrocardiogram 12 Leadon 01-01-2022 Electrocardiogram 12 Lead Normal [facility] INFLUENZA A/B, COVID 2019 PC R,SYMPTOMATICon 01-01-2022 INFLUENZA A, PCR Not detected Normal Not Detected [facility] Comment on above: Result Comment: Resp iratory virus testing is performed routinely by PCR for Influenza A/B and RSV. Not Detected results do not preclude Influenza A/B or RSV infections since the adequacy of sample collection or low viral burden may impact the clinical sensitivity of this test method. Performed By: #### C OINP ####[id number] [facility] [place] [address] INFLUENZA B, PCR Not detected Normal Not Detected [facility] Comment on above: Result Comment: Resp iratory virus testing is performed routinely by PCR for Influenza A/B and RSV. Not Detected results do not preclude Influenza A/B or RSV infections since the adequacy of sample collection or low viral burden may impact the clinical sensitivity of this test method. Performed By: #### C OINP ####[id number] [facility] [place] [place] [address] SARS-CoV-2 (COVID-19) RNA EMORY+probe Ql (Unsp spec) Not detected Normal Not Detected [facility] Comment on above: Result Comment: .Thi s test has received FDA Emergency Use Authorization (EUA) and has beenverified by [facility] ([facility]). This testis only authorized for the duration of time that circumstances exist tojustify the authorization of the emergency use of in vitro diagnostic testsfor the detection of SARS-CoV-2 virus and/or diagnosis of COVID-19 infectionunder section 564(b)(1) of the Act, 21 U.S.C. 360bbb-3(b)(1), unless theauthorization is terminated or revoked sooner.[facility] is certified under CLIA-88 asqualified to perform high complexity testing. Testing is performed in [facility] located at [address] [place] [address].SARS-CoV-2/Flu/RSV Multiplex Test:Fact sheet for providers: https://www.fda.gov/media/743533/downloadFact sheet for patients: https://www.fda.gov/media/539297/download Performed By: #### C OINP ####[id number] [place] [address] Lab Specimen Source Nasal, Nasopharyngeal Normal [facility] Comment on above: Performed By: #### C OINP ####[id number] [place] [address] INFLUENZA A/B, COVID 2019 PCR,SYMPTOMATIC Not detected See Below -Otolaryn gology-Evie man Work Phone: Comment on above: Reference Range: Not Detected.This test has received FDA Emergency Use Authorization (EUA) and has been verified by [facility] ([facility]). This test is only authorized for the duration of time that circumstances exist to justify the authorization of the emergency use of in vitro diagnostic tests for the detection of SARS-CoV-2 virus and/or diagnosis of COVID-19 infection under section 564(b)(1) of the Act, 21 U.S.C. 360bbb-3(b)(1), unless the authorization is terminated or revoked sooner. [facility] is certified under CLIA-88 as qualified to perform high complexity testing. Testing is performed in the [facility] located at [id number] [place] [address].SARS-CoV-2/Flu/RSV Multiplex Test: Fact sheet for providers: https://www.fda.gov/media/703288/downloadFact sheet for patients: https://www.fda.gov/media/544193/download Reference Range: Not Detected Respiratory virus testing is performed routinely by PCR for Influenza A/B and RSV. Not Detected results do not preclude Influenza A/B or RSV infections since the adequacy of sample collection or low viral burden may impact the clinical sensitivity of this test method. SOURCE: Nasal, Nasop haryngealReference Range: Not Detected Respiratory virus testing is performed routinely by PCR for Influenza A/B and RSV. Not Detected results do not preclude Influenza A/B or RSV infections since the adequacy of sample collection or low viral burden may impact the clinical sensitivity of this test method. LACTATEon 01-01-2022 Lactate [Moles/Vol] 1.9 mmol/L Normal 0.4 - 2.0 [facility] Comment on above: Result Comment: Deb puncture immediately after or during the administration of Metamizole may lead to falsely low results. Testing should be performed immediately prior to Metamizole dosing. Performed By: #### L ACT ####[id number] [address] Laboratory - Chemistry and C hemistry - challengeon 01-01-2022 Glucose [Mass/Vol] 164 mg/dL above high threshold 74 - 99 MG-Otolaryn [employer] Work Phone: [phone] Albumin BCP dye [Mass/Vol] 3.6 g/dL 3.4 - 5.0 MG-Otolaryn [employer] Work Phone: [phone] ALP [Catalytic activity/Vol] 66 U/L 33 - 136 MG-Otolaryn gology-Evie [place] Work Phone: [phone] ALT With P-5'-P [Catalytic activity/Vol] 34 U/L 10 - 52 MG-Otolaryn [employer] Work Phone: [phone] Comment on above: Patients treated wit h Sulfasalazine may generate falsely decreased results for ALT. Anion gap [Moles/Vol] 13 mmol/L 10 - 20 MG-Otolaryn gology-Ev[place] Work Phone: [phone] AST With P-5'-P [Catalytic activity/Vol] 24 U/L 9 - 39 MG-Otolaryn [employer] Work Phone: [phone] Bilirubin [Mass/Vol] 0.5 mg/dL 0.0 - 1.2 MG-O tolaryn [employer] Work Phone: [phone] Calcium [Mass/Vol] 10.2 mg/dL 8.6 - 10.6 MG-Oliver laryn [employer] Work Phone: [phone] Chloride [Moles/Vol] 95 mmol/L below low threshold 98 - 107 MG-Otolaryn gology-Evie man Work Phone: [phone] CO2 [Moles/Vol] 30 mmol/L 21 - 32 MG-Otolar yn [employer]obby[employer]-Evie man Work Phone: [phone] Creatinine [Mass/Vol] 0.65 mg/dL See Below MG-Otolaryn gology-Evie man Work Phone: [phone] Comment on above: Reference Range: 0.5 0 - 1.30 Glucose [Mass/Vol] 232 mg/dL above high threshold 74 - 99 MG-Otolaryn gology-Evie man Work Phone: [phone] Potassium [Moles/Vol] 3.3 mmol/L below low threshold 3.5 - 5.3 MG-Otolaryn gology-Evie man Work Phone: [phone] Protein [Mass/Vol] 8.7 g/dL above high threshold 6.4 - 8.2 MG-Otolaryn gology-Evie man Work Phone: [phone] Sodium [Moles/Vol] 135 mmol/L below low threshold 136 - 145 MG-Otolaryn gology-Evie man Work Phone: [phone] Urea nitrogen [Mass/Vol] 13 mg/dL 6 - 23 MG-Otolaryn gology-Evie man Work Phone: [phone] Lactate, Levelon 01-01-2022 Lactate [Moles/Vol] 1.9 mmol/L 0.4 - 2.0 MG-Ot olaryn renata-Evie man Work Phone: [phone] Comment on above: Venipuncture immedia tely after or during the administration of Metamizole may lead to falsely low results. Testing should be performed immediately prior to Metamizole dosing. MISCELLANEOUS CULT./SM.BACT. on 01-01-2022 MISCELLANEOUS CULT./SM.BACT. Normal [facility] Comment on above: Performed By: #### M [facility] ####[id number] [address] No Panel Informationon 01-01 [email or web address]?R etrieveTestByDateTime?Anabel whpGA=[id number]&Date=04-30&Time=17%3a12%3a29%3a 00&TestType=ECG&Site=1&Out putType=PDF&Ext=PDF MG-Otolaryn gology-Evie man Work Phone: [phone] Please see ED Provid er Note for formal interpretation MG-Otolaryn gology-Evie man Work Phone: [phone] Normal MG-Otolaryn gology-Evie man Work Phone: [phone] 1 MG-Otolaryn gology-Evie man Work Phone: [phone] 1 MG-Otolaryn gology-Evie man Work Phone: [phone] 1 MG-Otolaryn gology-Evie man Work Phone: [phone] 1 MG-Otolaryn gology-Evie man Work Phone: [phone] 1 MG-Otolaryn gology-Evie man Work Phone: [phone] 1 MG-Otolaryn gology-Evie man Work Phone: [phone] 1 MG-Otolaryn gology-Evie man Work Phone: [phone] 1 MG-Otolaryn gology-Evie man Work Phone: [phone] 1 MG-Otolaryn gology-Evie man Work Phone: [phone] 1 MG-Otolaryn gology-Evie man Work Phone: [phone] 1 MG-Otolaryn gology-Evie man Work Phone: [phone] 1 MG-Otolaryn gology-Evie man Work Phone: [phone] 1 MG-Otolaryn gology-Evie man Work Phone: [phone] 1 MG-Otolaryn gology-Evie man Work Phone: [phone] Few MG-Otolaryn gology-Evie man Work Phone: [phone] See Below MG-Otolaryn gology-Evie man Work Phone: [phone] >90 >90 MG-Otolaryn gology-Evie man Work Phone: [phone] Comment on above: CALCULATIONS OF MICKEY MATED GFR ARE PERFORMED USING THE 2020 CKD-EPI STUDY REFIT EQUATION WITHOUT THE RACE VARIABLE FOR THE IDMS-TRACEABLE CREATININE METHODS.https://jasn.asnjournals.org/content/early//ASN .1571649743 Order Reconciliationon 01-01 Order Reconciliation Normal [facility] Provider Note - ED v3on 05- Provider Note - ED v3 Normal [facility] RED CELL MORPHOLOGYon 2021 GIANT PLATELETS Few Normal [facility] Comment on above: Performed By: #### M ORP2 ####[id number] [place] [address] RBC morphology finding Nom (Bld) See Below Normal [facility] Comment on above: Performed By: #### M ORP2 ####[id number] [place] [address] Radiologyon 01-01-2022 US.doppler Lower extremity vein - right Normal MG-Otolaryn gology-Evie man Work Phone: [phone] Triage - EDon 01-01-2022 Triage - ED Normal [facility] Blood Pressure Cuff Sizeon 0 12-26-2021 Adult depression screening assessment No MG-Otolaryn gology-Evie man Work Phone: [phone] Fall risk assessment a) No falls within the last year MG-Otolaryn gology-Evie man Work Phone: [phone] Tobacco use status CPHS b) No MG-Otolaryn gology-Evie man Work Phone: [phone] Blood Pressure Cuff Size Adult MG-Otolaryn gology-Evie man Work Phone: CBCon 12-21-2021 Erythrocyte distribution width (RBC) [Ratio] 13.9 % Normal 11.5 - 14.5 [facility] Comment on above: Performed By: #### C BC ####[id number] [place] [address] Hematocrit (Bld) [Volume fraction] 29.0 % Low 41.0 - 52.0 [facility] Comment on above: Performed By: #### C BC ####[id number] [place] [address] Hemoglobin (Bld) [Mass/Vol] 9.8 g/dL Low 13.5 - 17.5 [facility] Comment on above: Performed By: #### C BC ####[id number] [place] [address] MCHC (RBC) [Mass/Vol] 33.8 g/dL Normal 32.0 - 36.0 [facility] Comment on above: Performed By: #### C BC ####[id number] [place] [address] MCV (RBC) [Entitic vol] 92 fL Normal 80 - 100 [facility] Comment on above: Performed By: #### C BC ####[id number] [place] [address] NUCLEATED RBC 0.0 /100 WBC Normal 0.0-0.0 [facility] Comment on above: Performed By: #### C BC ####[id number] [place] [address] Platelets (Bld) [#/Vol] 438 10*3/uL Normal 150 - 450 [facility] Comment on above: Performed By: #### C BC ####[id number] [place] [address] RBC 3.15 x10E12/L Low 4.50 - 5.90 [facility] Comment on above: Performed By: #### C BC ####[id number] [place] [address] WBC (Bld) [#/Vol] 8.2 10*3/uL Normal 4.4 - 11.3 [facility] Comment on above: Performed By: #### C BC ####[id number] [place] [address] GLUCOSE-POCTon 12-21-2021 Glucose [Mass/Vol] 188 mg/dL High 74 - 99 [facility] Comment on above: Performed By: #### G ALLISON ####[id number] [place] [address] Laboratory - Chemistry and C hemistry - challengeon 12-21-2021 Glucose [Mass/Vol] 188 mg/dL above high threshold 74 - 99 MG-Otolaryn gology-Evie man Work Phone: [phone] Laboratory - Hematology and Cell countson 12-21-2021 Erythrocyte distribution width (RBC) [Ratio] 13.9 % See Below MG-Otolaryn gology-Evie man Work Phone: [phone] Comment on above: Reference Range: 11. 5 - 14.5 Hematocrit (Bld) [Volume fraction] 29.0 % below low threshold See Below MG-Otolaryn gology-Evie man Work Phone: [phone] Comment on above: Reference Range: 41. 0 - 52.0 Hemoglobin (Bld) [Mass/Vol] 9.8 g/dL below low threshold See Below MG-Otolaryn gology-Evie man Work Phone: [phone] Comment on above: Reference Range: 13. 5 - 17.5 MCHC (RBC) [Mass/Vol] 33.8 g/dL See Below MG-Otolaryn gology-Evie man Work Phone: [phone] Comment on above: Reference Range: 32. 0 - 36.0 MCV (RBC) [Entitic vol] 92 fL 80 - 100 MG-Otolaryn gology-Evie man Work Phone: [phone] Platelets (Bld) [#/Vol] 438 10*3/uL 150 - 450 MG-Otolaryn gology-Evie man Work Phone: [phone] RBC (Bld) [#/Vol] 3.15 {x10E12/L} below low threshold See Below MG-Otolaryn gology-Evie man Work Phone: Comment on above: Reference Range: 4.5 0 - 5.90 WBC (Bld) [#/Vol] 8.2 10*3/uL 4.4 - 11.3 MG-[place] laryn gology-Evie man Work Phone: MAGNESIUMon 12-21-2021 Magnesium [Mass/Vol] 2.14 mg/dL Normal 1.60 - 2.40 [facility] Comment on above: Performed By: #### M G ####[id number] [place] [address] Magnesium, Serumon Magnesium [Mass/Vol] 2.14 mg/dL See Below MG-O tolaryn gology-Evie man Work Phone: Comment on above: Reference Range: 1.6 0 - 2.40 No Panel Informationon 12-21 0.0 {/100_WBC} 0.0-0.0 MG-Otolary n gology-Evie man Work Phone: RENAL FUNCTION PANELon 12-21 Albumin [Mass/Vol] 2.5 g/dL Low 3.4 - 5.0 [facility] Comment on above: Performed By: #### R ENAL ####[id number] [place] [address] Anion gap [Moles/Vol] 13 mmol/L Normal 10 - 20 [facility] Comment on above: Performed By: #### R ENAL ####[id number] [place] [address] Calcium [Mass/Vol] 8.1 mg/dL Low 8.6 - 10.6 [facility] Comment on above: Performed By: #### R ENAL ####[id number] [place] [address] Chloride [Moles/Vol] 104 mmol/L Normal 98 - 107 [facility] Comment on above: Performed By: #### R ENAL ####[id number] [place] [address] Creatinine [Mass/Vol] 0.64 mg/dL Normal 0.50 - 1.30 [facility] Comment on above: Performed By: #### R ENAL ####[id number] [place] [address] eGFR MALE >90 Normal >90 [facility] Comment on above: Result Comment: CALC ULATIONS OF ESTIMATED GFR ARE PERFORMED USING THE 2020 CKD-EPI STUDY REFIT EQUATION WITHOUT THE RACE VARIABLE FOR THE IDMS-TRACEABLE CREATININE METHODS.https://jasn.asnjournals.org/content/early/ASN .3972240797 Performed By: #### R ENAL ####[id number] [place] [address] Glucose [Mass/Vol] 199 mg/dL High 74 - 99 [facility] Comment on above: Performed By: #### R ENAL ####[id number] [place] [address] HCO3 (Bld) [Moles/Vol] 22 mmol/L Normal 21 - 32 [facility] Comment on above: Performed By: #### R ENAL ####[id number] [place] [address] Phosphate [Mass/Vol] 2.7 mg/dL Normal 2.5 - 4.9 [facility] Comment on above: Result Comment: The performance characteristics of phosphorus testing in heparinized plasma have been validated by the individual laboratory site where testing is performed. Testing on heparinized plasma is not approved by the FDA; however, such approval is not necessary. Performed By: #### R ENAL ####[id number] [place] [address] Potassium [Moles/Vol] 3.9 mmol/L Normal 3.5 - 5.3 [facility] Comment on above: Performed By: #### R ENAL ####[id number] [place] [address] Sodium [Moles/Vol] 135 mmol/L Low 136 - 145 [facility] Comment on above: Performed By: #### R ENAL ####[id number] [place] [address] Urea nitrogen [Mass/Vol] 10 mg/dL Normal 6 - 23 [facility] Comment on above: Performed By: #### R ENAL ####[id number] [place] [address] Renal Function Panelon 12-21 Albumin BCP dye [Mass/Vol] 2.5 g/dL below low threshold 3.4 - 5.0 MG-Otolaryn gology-Evie man Work Phone: [phone] Anion gap [Moles/Vol] 13 mmol/L 10 - 20 MG-Otolaryn gology-Evie man Work Phone: [phone] Calcium [Mass/Vol] 8.1 mg/dL below low threshold 8.6 - 10.6 MG-Otolaryn gology-Evie man Work Phone: [phone] Chloride [Moles/Vol] 104 mmol/L 98 - 107 MG-O tolaryn gology-Evie man Work Phone: [phone] CO2 [Moles/Vol] 22 mmol/L 21 - 32 MG-Otolar yn gology-Evie man Work Phone: [phone] Creatinine [Mass/Vol] 0.64 mg/dL See Below MG-Otolaryn gology-Evie man Work Phone: [phone] Comment on above: Reference Range: 0.5 0 - 1.30 Glucose [Mass/Vol] 199 mg/dL above high threshold 74 - 99 MG-Otolaryn gology-Evie man Work Phone: [phone] Phosphate [Mass/Vol] 2.7 mg/dL 2.5 - 4.9 MG-O tolaryn gology-Evie man Work Phone: [phone] Comment on above: The performance jami acteristics of phosphorus testing in heparinized plasma have been validated by the individual laboratory site where testing is performed. Testing on heparinized plasma is not approved by the FDA; however, such approval is not necessary. Potassium [Moles/Vol] 3.9 mmol/L 3.5 - 5.3 MG-Otolaryn gology-Evie man Work Phone: [phone] Sodium [Moles/Vol] 135 mmol/L below low threshold 136 - 145 MG-Otolaryn gology-Evie man Work Phone: [phone] Urea nitrogen [Mass/Vol] 10 mg/dL 6 - 23 MG-Otolaryn gology-Evie man Work Phone: [phone] Renal Function Panel >90 >90 MG-O tolaryn gology-Evie man Work Phone: [phone] Comment on above: CALCULATIONS OF MICKEY MATED GFR ARE PERFORMED USING THE 2020 CKD-EPI STUDY REFIT EQUATION WITHOUT THE RACE VARIABLE FOR THE IDMS-TRACEABLE CREATININE METHODS.https://jasn.asnjournals.org/content/early/ASN .1337187610 CBCon 12-20-2021 Erythrocyte distribution width (RBC) [Ratio] 13.6 % Normal 11.5 - 14.5 [facility] Comment on above: Performed By: #### C BC ####[id number] [place] [address] Hematocrit (Bld) [Volume fraction] 27.0 % Low 41.0 - 52.0 [facility] Comment on above: Performed By: #### C BC ####[id number] [place] [address] Hemoglobin (Bld) [Mass/Vol] 9.0 g/dL Low 13.5 - 17.5 [facility] Comment on above: Performed By: #### C BC ####[id number] [place] [address] MCHC (RBC) [Mass/Vol] 33.3 g/dL Normal 32.0 - 36.0 [facility] Comment on above: Performed By: #### C BC ####[id number] [place] [address] MCV (RBC) [Entitic vol] 92 fL Normal 80 - 100 [facility] Comment on above: Performed By: #### C BC ####[id number] [place] [address] NUCLEATED RBC 0.0 /100 WBC Normal 0.0-0.0 [facility] Comment on above: Performed By: #### C BC ####[id number] [place] [address] Platelets (Bld) [#/Vol] 339 10*3/uL Normal 150 - 450 [facility] Comment on above: Performed By: #### C BC ####[id number] [place] [address] RBC 2.95 x10E12/L Low 4.50 - 5.90 [facility] Comment on above: Performed By: #### C BC ####[id number] [place] [address] WBC (Bld) [#/Vol] 8.5 10*3/uL Normal 4.4 - 11.3 [facility] Comment on above: Performed By: #### C BC ####[id number] [place] [address] Clinical Event Note-ENT flap checkon 12-20-2021 Clinical Event Note-ENT flap check Normal [facility] Daily Progress Note-ENTon Daily Progress Note-ENT Normal [facility] GLUCOSE-POCTon 12-20-2021 Glucose [Mass/Vol] 171 mg/dL High 74 - 99 [facility] Comment on above: Performed By: #### G ALLISON ####[id number] [place] [address] Glucose [Mass/Vol] 237 mg/dL High 74 - 99 [facility] Comment on above: Performed By: #### G ALLISON ####[id number] [place] [address] Glucose [Mass/Vol] 250 mg/dL High 74 - 99 [facility] Comment on above: Performed By: #### G ALLISON ####[id number] [place] [address] Glucose [Mass/Vol] 218 mg/dL High 74 - 99 [facility] Comment on above: Performed By: #### G ALLISON ####[id number] [place] [address] Glucose [Mass/Vol] 132 mg/dL High 74 - 99 [facility] Comment on above: Performed By: #### G ALLISON ####[id number] [place] [address] Laboratory - Chemistry and C hemistry - challengeon 12-20-2021 Glucose [Mass/Vol] 171 mg/dL above high threshold 74 - 99 MG-Otolaryn gology-Evie man Work Phone: [phone] Glucose [Mass/Vol] 237 mg/dL above high threshold 74 - 99 MG-Otolaryn gology-Evie man Work Phone: [phone] Glucose [Mass/Vol] 250 mg/dL above high threshold 74 - 99 MG-Otolaryn gology-Evie man Work Phone: [phone] Glucose [Mass/Vol] 218 mg/dL above high threshold 74 - 99 MG-Otolaryn gology-Evie man Work Phone: [phone] Glucose [Mass/Vol] 132 mg/dL above high threshold 74 - 99 MG-Otolaryn gology-Evie man Work Phone: [phone] Laboratory - Hematology and Cell countson 12-20-2021 Erythrocyte distribution width (RBC) [Ratio] 13.6 % See Below MG-Otolaryn gology-Evie man Work Phone: [phone] Comment on above: Reference Range: 11. 5 - 14.5 Hematocrit (Bld) [Volume fraction] 27.0 % below low threshold See Below MG-Otolaryn gology-Evie man Work Phone: [phone] Comment on above: Reference Range: 41. 0 - 52.0 Hemoglobin (Bld) [Mass/Vol] 9.0 g/dL below low threshold See Below MG-Otolaryn gology-Evie man Work Phone: [phone] Comment on above: Reference Range: 13. 5 - 17.5 MCHC (RBC) [Mass/Vol] 33.3 g/dL See Below MG-Otolaryn gology-Evie man Work Phone: [phone] Comment on above: Reference Range: 32. 0 - 36.0 MCV (RBC) [Entitic vol] 92 fL 80 - 100 MG-Otolaryn gology-Evie man Work Phone: [phone] Platelets (Bld) [#/Vol] 339 10*3/uL 150 - 450 MG-Otolaryn gology-Evie man Work Phone: [phone] RBC (Bld) [#/Vol] 2.95 {x10E12/L} below low threshold See Below MG-Otolaryn gology-Evie man Work Phone: [phone] Comment on above: Reference Range: 4.5 0 - 5.90 WBC (Bld) [#/Vol] 8.5 10*3/uL 4.4 - 11.3 MG-Oliver laryn bobbyogy-Evie man Work Phone: [phone] MAGNESIUMon 12-20-2021 Magnesium [Mass/Vol] 1.96 mg/dL Normal 1.60 - 2.40 [facility] Comment on above: Result Comment: MILD HEMOLYSIS DETECTED. The result may be falsely elevated due tohemolysis or other interferents. Clinical correlation is recommended.Repeat testing may be considered. Performed By: #### M G ####[id number] [place] [address] Magnesium, Serumon Magnesium [Mass/Vol] 1.96 mg/dL See Below MG-O adin madisony-Evie man Work Phone: [phone] Comment on above: Reference Range: 1.6 0 - 2.40MILD HEMOLYSIS DETECTED. The result may be falsely elevated due tohemolysis or other interferents. Clinical correlation is recommended.Repeat testing may be considered. No Panel Informationon 12-20 0.0 {/100_WBC} 0.0-0.0 MG-Otolary n gology-Evie man Work Phone: [phone] RENAL FUNCTION PANELon 12-20 Albumin [Mass/Vol] 2.2 g/dL Low 3.4 - 5.0 [facility] Comment on above: Performed By: #### R ENAL ####[id number] [place] [address] Anion gap [Moles/Vol] 12 mmol/L Normal 10 - 20 [facility] Comment on above: Performed By: #### R ENAL ####[id number] [place] [address] Calcium [Mass/Vol] 7.7 mg/dL Low 8.6 - 10.6 [facility] Comment on above: Performed By: #### R ENAL ####[id number] [place] [address] Chloride [Moles/Vol] 104 mmol/L Normal 98 - 107 [facility] Comment on above: Performed By: #### R ENAL ####[id number] [place] [address] Creatinine [Mass/Vol] 0.62 mg/dL Normal 0.50 - 1.30 [facility] Comment on above: Performed By: #### R ENAL ####[id number] [place] [address] eGFR MALE >90 Normal >90 [facility] Comment on above: Result Comment: CALC ULATIONS OF ESTIMATED GFR ARE PERFORMED USING THE 2020 CKD-EPI STUDY REFIT EQUATION WITHOUT THE RACE VARIABLE FOR THE IDMS-TRACEABLE CREATININE METHODS.https://jasn.asnjournals.org/content//ASN .3752169941 Performed By: #### R ENAL ####[id number] [place] [address] Glucose [Mass/Vol] 192 mg/dL High 74 - 99 [facility] Comment on above: Performed By: #### R ENAL ####[id number] [place] [address] HCO3 (Bld) [Moles/Vol] 22 mmol/L Normal 21 - 32 [facility] Comment on above: Performed By: #### R ENAL ####[id number] [place] [address] Phosphate [Mass/Vol] 3.1 mg/dL Normal 2.5 - 4.9 [facility] Comment on above: Result Comment: The performance characteristics of phosphorus testing in heparinized plasma have been validated by the individual laboratory site where testing is performed. Testing on heparinized plasma is not approved by the FDA; however, such approval is not necessary.MILD HEMOLYSIS DETECTED. The result may be falsely elevated due tohemolysis or other interferents. Clinical correlation is recommended.Repeat testing may be considered. Performed By: #### R ENAL ####[id number] [place] [address] Potassium [Moles/Vol] 3.7 mmol/L Normal 3.5 - 5.3 [facility] Comment on above: Result Comment: MILD HEMOLYSIS DETECTED. The result may be falsely elevated due tohemolysis or other interferents. Clinical correlation is recommended.Repeat testing may be considered. Performed By: #### R ENAL ####[id number] [place] [address] Sodium [Moles/Vol] 134 mmol/L Low 136 - 145 [facility] Comment on above: Performed By: #### R ENAL ####[id number] [place] [address] Urea nitrogen [Mass/Vol] 9 mg/dL Normal 6 - 23 [facility] Comment on above: Performed By: #### R ENAL ####[id number] [place] [address] Rehab Arou-ee-ugmfsquxx - se en with OT in order to facilitaton 12-20-2021 Rehab Ezvx-kf-sjcnwtqup - seen with OT in order to facilitat Normal [facility] Rehab Note-ancillary services manager therapy apyon 12-20-2021 Rehab Note-occupational therapy Normal [facility] Renal Function Panelon 12-20 Albumin BCP dye [Mass/Vol] 2.2 g/dL below low threshold 3.4 - 5.0 MG-Otolaryn gology-Evie man Work Phone: Anion gap [Moles/Vol] 12 mmol/L 10 - 20 MG-Otolaryn gology-Evie man Work Phone: Calcium [Mass/Vol] 7.7 mg/dL below low threshold 8.6 - 10.6 MG-Otolaryn gology-Evie man Work Phone: [phone] Chloride [Moles/Vol] 104 mmol/L 98 - 107 MG-O tolaryn bobbyogy-Evie man Work Phone: [phone] CO2 [Moles/Vol] 22 mmol/L 21 - 32 MG-Otolar yn bobbyogy-Evie man Work Phone: [phone] Creatinine [Mass/Vol] 0.62 mg/dL See Below MG-Otolaryn gology-Evie man Work Phone: [phone] Comment on above: Reference Range: 0.5 0 - 1.30 Glucose [Mass/Vol] 192 mg/dL above high threshold 74 - 99 MG-Otolaryn madisony-Evie man Work Phone: [phone] Phosphate [Mass/Vol] 3.1 mg/dL 2.5 - 4.9 MG-O tolaryn madisony-Evie man Work Phone: [phone] Comment on above: The performance jami acteristics of phosphorus testing in heparinized plasma have been validated by the individual laboratory site where testing is performed. Testing on heparinized plasma is not approved by the FDA; however, such approval is not necessary.MILD HEMOLYSIS DETECTED. The result may be falsely elevated due tohemolysis or other interferents. Clinical correlation is recommended.Repeat testing may be considered. Potassium [Moles/Vol] 3.7 mmol/L 3.5 - 5.3 MG-Otolaryn gology-Evie man Work Phone: [phone] Comment on above: MILD HEMOLYSIS DETEC CHANG. The result may be falsely elevated due tohemolysis or other interferents. Clinical correlation is recommended.Repeat testing may be considered. Sodium [Moles/Vol] 134 mmol/L below low threshold 136 - 145 MG-Otolaryn gology-Evie man Work Phone: [phone] Urea nitrogen [Mass/Vol] 9 mg/dL 6 - 23 MG-Otolaryn gology-Evie man Work Phone: Renal Function Panel >90 >90 MG-O niurka Martinez man Work Phone: Comment on above: CALCULATIONS OF MICKEY MATED GFR ARE PERFORMED USING THE 2020 CKD-EPI STUDY REFIT EQUATION WITHOUT THE RACE VARIABLE FOR THE IDMS-TRACEABLE CREATININE METHODS.https://jasn.asnjournals.org/content//ASN .8815652196 CBCon 12-19-2021 Erythrocyte distribution width (RBC) [Ratio] 13.8 % Normal 11.5 - 14.5 [facility] Comment on above: Performed By: #### C BC ####[id number] [place] [address] Hematocrit (Bld) [Volume fraction] 27.4 % Low 41.0 - 52.0 [facility] Comment on above: Performed By: #### C BC ####[id number] [place] [address] Hemoglobin (Bld) [Mass/Vol] 9.3 g/dL Low 13.5 - 17.5 [facility] Comment on above: Performed By: #### C BC ####[id number] [place] [address] MCHC (RBC) [Mass/Vol] 33.9 g/dL Normal 32.0 - 36.0 [facility] Comment on above: Performed By: #### C BC ####[id number] [place] [address] MCV (RBC) [Entitic vol] 94 fL Normal 80 - 100 [facility] Comment on above: Performed By: #### C BC ####[id number] [place] [address] NUCLEATED RBC 0.0 /100 WBC Normal 0.0-0.0 [facility] Comment on above: Performed By: #### C BC ####[id number] [place] [address] Platelets (Bld) [#/Vol] 301 10*3/uL Normal 150 - 450 [facility] Comment on above: Performed By: #### C BC ####[id number] [place] [address] RBC 2.93 x10E12/L Low 4.50 - 5.90 [facility] Comment on above: Performed By: #### C BC ####[id number] [place] [address] WBC (Bld) [#/Vol] 7.0 10*3/uL Normal 4.4 - 11.3 [facility] Comment on above: Performed By: #### C BC ####[id number] [place] [address] Clinical Event Note-ENT flap checkon 12-19-2021 Clinical Event Note-ENT flap check Normal [facility] Clinical Event Note-ENT flap check Normal [facility] Clinical Event Note-Trach ch angeon 12-19-2021 Clinical Event Note-Trach change Normal [facility] Daily Progress Note-ENTon Daily Progress Note-ENT Normal [facility] Daily Progress Note-ENT This report has been cancelled. Normal [facility] GLUCOSE-POCTon 12-19-2021 Glucose [Mass/Vol] 141 mg/dL High 74 - 99 [facility] Comment on above: Performed By: #### G ALLISON ####[id number] [place] [address] Glucose [Mass/Vol] 255 mg/dL High 74 - 99 [facility] Comment on above: Performed By: #### G ALLISON ####[id number] [place] [address] Glucose [Mass/Vol] 181 mg/dL High 74 - 99 [facility] Comment on above: Performed By: #### G ALLISON ####[id number] [place] [address] Glucose [Mass/Vol] 214 mg/dL High 74 - 99 [facility] Comment on above: Performed By: #### G ALLISON ####[id number] [place] [address] Laboratory - Chemistry and C hemistry - challengeon 12-19-2021 Glucose [Mass/Vol] 141 mg/dL above high threshold 74 - 99 MG-Otolaryn gology-Evie man Work Phone: [phone] Glucose [Mass/Vol] 255 mg/dL above high threshold 74 - 99 MG-Otolaryn gology-Evie man Work Phone: [phone] Glucose [Mass/Vol] 181 mg/dL above high threshold 74 - 99 MG-Otolaryn gology-Evie man Work Phone: [phone] Laboratory - Hematology and Cell countson 12-19-2021 Erythrocyte distribution width (RBC) [Ratio] 13.8 % See Below MG-Otolaryn bobbyogy-Evie man Work Phone: [phone] Comment on above: Reference Range: 11. 5 - 14.5 Hematocrit (Bld) [Volume fraction] 27.4 % below low threshold See Below MG-Otolaryn madisony-Evie man Work Phone: [phone] Comment on above: Reference Range: 41. 0 - 52.0 Hemoglobin (Bld) [Mass/Vol] 9.3 g/dL below low threshold See Below MG-Otolaryn madisony-Evie man Work Phone: [phone] Comment on above: Reference Range: 13. 5 - 17.5 MCHC (RBC) [Mass/Vol] 33.9 g/dL See Below MG-Otolaryn bobbyogy-Evie man Work Phone: [phone] Comment on above: Reference Range: 32. 0 - 36.0 MCV (RBC) [Entitic vol] 94 fL 80 - 100 MG-Otolaryn gology-Evie [place] Work Phone: [phone] Platelets (Bld) [#/Vol] 301 10*3/uL 150 - 450 MG-Otolaryn gology-Evie man Work Phone: [phone] RBC (Bld) [#/Vol] 2.93 {x10E12/L} below low threshold See Below MG-Otolaryn gology-Evie man Work Phone: [phone] Comment on above: Reference Range: 4.5 0 - 5.90 WBC (Bld) [#/Vol] 7.0 10*3/uL 4.4 - 11.3 MG-Oliver laryn gology-Evie man Work Phone: MAGNESIUMon 12-19-2021 Magnesium [Mass/Vol] 2.00 mg/dL Normal 1.60 - 2.40 [facility] Comment on above: Performed By: #### M G ####[id number] [place] [address] Magnesium, Serumon 2 Magnesium [Mass/Vol] 2.00 mg/dL See Below MG-O tolaryn gology-Evie man Work Phone: Comment on above: Reference Range: 1.6 0 - 2.40 No Panel Informationon 12-19 0.0 {/100_WBC} 0.0-0.0 MG-Otolary n gology-Evie man Work Phone: RENAL FUNCTION PANELon 12-19 Albumin [Mass/Vol] 2.2 g/dL Low 3.4 - 5.0 [facility] Comment on above: Performed By: #### R ENAL ####[id number] [place] [address] Anion gap [Moles/Vol] 12 mmol/L Normal 10 - 20 [facility] Comment on above: Performed By: #### R ENAL ####[id number] [place] [address] Calcium [Mass/Vol] 7.7 mg/dL Low 8.6 - 10.6 [facility] Comment on above: Performed By: #### R ENAL ####[id number] [place] [address] Chloride [Moles/Vol] 107 mmol/L Normal 98 - 107 [facility] Comment on above: Performed By: #### R ENAL ####[id number] [place] [address] Creatinine [Mass/Vol] 0.70 mg/dL Normal 0.50 - 1.30 [facility] Comment on above: Performed By: #### R ENAL ####[id number] [place] [address] eGFR MALE >90 Normal >90 [facility] Comment on above: Result Comment: CALC ULATIONS OF ESTIMATED GFR ARE PERFORMED USING THE 2020 CKD-EPI STUDY REFIT EQUATION WITHOUT THE RACE VARIABLE FOR THE IDMS-TRACEABLE CREATININE METHODS.https://jasn.asnjournals.org/content//ASN .7568584610 Performed By: #### R ENAL ####[id number] [place] [address] Glucose [Mass/Vol] 197 mg/dL High 74 - 99 [facility] Comment on above: Performed By: #### R ENAL ####[id number] [place] [address] HCO3 (Bld) [Moles/Vol] 24 mmol/L Normal 21 - 32 [facility] Comment on above: Performed By: #### R ENAL ####[id number] [place] [address] Phosphate [Mass/Vol] 2.5 mg/dL Normal 2.5 - 4.9 [facility] Comment on above: Result Comment: The performance characteristics of phosphorus testing in heparinized plasma have been validated by the individual laboratory site where testing is performed. Testing on heparinized plasma is not approved by the FDA; however, such approval is not necessary. Performed By: #### R ENAL ####[id number] [place] [address] Potassium [Moles/Vol] 3.5 mmol/L Normal 3.5 - 5.3 [facility] Comment on above: Performed By: #### R ENAL ####[id number] [place] [address] Sodium [Moles/Vol] 139 mmol/L Normal 136 - 145 [facility] Comment on above: Performed By: #### R ENAL ####[id number] [place] [address] Urea nitrogen [Mass/Vol] 9 mg/dL Normal 6 - 23 [facility] Comment on above: Performed By: #### R ENAL ####[id number] [address] Rehab Csjg-ol-kjtnpxamh - co -treatment with PT to increase lianne 12-19-2021 Rehab Nhnb-ez-gvgziarcg - co-treatment with PT to increase p Normal [facility] Rehab Gucs-sk-asjrvpept - se en with OT in order to facilitaton 12-19-2021 Rehab Jguq-ct-emrmrzqnz - seen with OT in order to facilitat Normal [facility] Rehab Note-physical therapy assistanton 12-19-2021 Rehab Note-geophysical observer 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 Electronic Signatures: Tram Santos ([employer]) (Signed 19-Dec-2021 11:59) Authored: Info Last Updated: 19-Dec-2021 11:59 by Tram Santos ([employer]) Normal [facility] Renal Function Panelon 12-19 Albumin BCP dye [Mass/Vol] 2.2 g/dL below low threshold 3.4 - 5.0 MG-Otolaryn gology-Evie man Work Phone: [phone] Anion gap [Moles/Vol] 12 mmol/L 10 - 20 MG-Otolaryn gology-Evie man Work Phone: [phone] Calcium [Mass/Vol] 7.7 mg/dL below low threshold 8.6 - 10.6 MG-Otolaryn gology-Evie man Work Phone: [phone] Chloride [Moles/Vol] 107 mmol/L 98 - 107 MG-O tolaryn gology-Evie man Work Phone: [phone] CO2 [Moles/Vol] 24 mmol/L 21 - 32 MG-Otolar yn gology-Evie man Work Phone: [phone] Creatinine [Mass/Vol] 0.70 mg/dL See Below MG-Otolaryn gology-Evie man Work Phone: [phone] Comment on above: Reference Range: 0.5 0 - 1.30 Glucose [Mass/Vol] 197 mg/dL above high threshold 74 - 99 MG-Otolaryn gology-Evie man Work Phone: Phosphate [Mass/Vol] 2.5 mg/dL 2.5 - 4.9 MG-O tolaryn bobbyogy-Evie man Work Phone: Comment on above: The performance jami acteristics of phosphorus testing in heparinized plasma have been validated by the individual laboratory site where testing is performed. Testing on heparinized plasma is not approved by the FDA; however, such approval is not necessary. Potassium [Moles/Vol] 3.5 mmol/L 3.5 - 5.3 MG-Otolaryn gology-Evie man Work Phone: Sodium [Moles/Vol] 139 mmol/L 136 - 145 MG-Oliver laryn gology-Evie man Work Phone: Urea nitrogen [Mass/Vol] 9 mg/dL 6 - 23 MG-Otolaryn gology-Evie man Work Phone: Renal Function Panel >90 >90 MG-O tolaryn gology-Evie man Work Phone: Comment on above: CALCULATIONS OF MICKEY MATED GFR ARE PERFORMED USING THE 2020 CKD-EPI STUDY REFIT EQUATION WITHOUT THE RACE VARIABLE FOR THE IDMS-TRACEABLE CREATININE METHODS.https://jasn.asnjournals.org/content//ASN .4740129926 CBCon 12-18-2021 Erythrocyte distribution width (RBC) [Ratio] 13.9 % Normal 11.5 - 14.5 [facility] Comment on above: Performed By: #### C BC ####[id number] [place] [address] Hematocrit (Bld) [Volume fraction] 26.6 % Low 41.0 - 52.0 [facility] Comment on above: Performed By: #### C BC ####[id number] [place] [address] Hemoglobin (Bld) [Mass/Vol] 8.8 g/dL Low 13.5 - 17.5 [facility] Comment on above: Performed By: #### C BC ####[id number] [place] [address] MCHC (RBC) [Mass/Vol] 33.1 g/dL Normal 32.0 - 36.0 [facility] Comment on above: Performed By: #### C BC ####[id number] [place] [address] MCV (RBC) [Entitic vol] 94 fL Normal 80 - 100 [facility] Comment on above: Performed By: #### C BC ####[id number] [place] [address] NUCLEATED RBC 0.0 /100 WBC Normal 0.0-0.0 [facility] Comment on above: Performed By: #### C BC ####[id number] [place] [address] Platelets (Bld) [#/Vol] 266 10*3/uL Normal 150 - 450 [facility] Comment on above: Performed By: #### C BC ####[id number] [place] [address] RBC 2.83 x10E12/L Low 4.50 - 5.90 [facility] Comment on above: Performed By: #### C BC ####[id number] [place] [address] WBC (Bld) [#/Vol] 7.3 10*3/uL Normal 4.4 - 11.3 [facility] Comment on above: Performed By: #### C BC ####[id number] [place] [address] Clinical Event Note-ENT FLAP CHECKon 12-18-2021 Clinical Event Note-ENT FLAP CHECK Normal [facility] Clinical Event Note-ENT flap checkon 12-18-2021 Clinical Event Note-ENT flap check Normal [facility] Daily Progress Note-ENTon Daily Progress Note-ENT Normal [facility] Daily Progress Note-ENT This report has been cancelled. Normal [facility] GLUCOSE-POCTon 12-18-2021 Glucose [Mass/Vol] 235 mg/dL High 74 - 99 [facility] Comment on above: Performed By: #### G ALLISON ####[id number] [place] [address] Glucose [Mass/Vol] 193 mg/dL High 74 - 99 [facility] Comment on above: Performed By: #### G ALLISON ####[id number] [place] [address] Glucose [Mass/Vol] 210 mg/dL High 74 - 99 [facility] Comment on above: Performed By: #### G ALLISON ####[id number] [place] [address] Glucose [Mass/Vol] 174 mg/dL High 74 - 99 [facility] Comment on above: Performed By: #### G ALLISON ####[id number] [place] [address] Laboratory - Chemistry and C hemistry - challengeon 12-18-2021 Glucose [Mass/Vol] 214 mg/dL above high threshold 74 - 99 MG-Otolaryn gology-Evie man Work Phone: [phone] Glucose [Mass/Vol] 235 mg/dL above high threshold 74 - 99 MG-Otolaryn gology-Evie man Work Phone: [phone] Glucose [Mass/Vol] 193 mg/dL above high threshold 74 - 99 MG-Otolaryn gology-Evie man Work Phone: [phone] Glucose [Mass/Vol] 210 mg/dL above high threshold 74 - 99 MG-Otolaryn gology-Evie man Work Phone: [phone] Laboratory - Hematology and Cell countson 12-18-2021 Erythrocyte distribution width (RBC) [Ratio] 13.9 % See Below MG-Otolaryn gology-Evie man Work Phone: Comment on above: Reference Range: 11. 5 - 14.5 Hematocrit (Bld) [Volume fraction] 26.6 % below low threshold See Below [facility] Work Phone: Comment on above: Reference Range: 41. 0 - 52.0 Hemoglobin (Bld) [Mass/Vol] 8.8 g/dL below low threshold See Below [facility] Work Phone: [phone] Comment on above: Reference Range: 13. 5 - 17.5 MCHC (RBC) [Mass/Vol] 33.1 g/dL See Below [facility] Work Phone: [phone] Comment on above: Reference Range: 32. 0 - 36.0 MCV (RBC) [Entitic vol] 94 fL 80 - 100 [facility] Work Phone: [phone] Platelets (Bld) [#/Vol] 266 10*3/uL 150 - 450 [facility] Work Phone: [phone] RBC (Bld) [#/Vol] 2.83 {x10E12/L} below low threshold See Below [facility] Work Phone: [phone] Comment on above: Reference Range: 4.5 0 - 5.90 WBC (Bld) [#/Vol] 7.3 10*3/uL 4.4 - 11.3 [facility] [facility] Work Phone: [phone] MAGNESIUMon 12-18-2021 Magnesium [Mass/Vol] 2.00 mg/dL Normal 1.60 - 2.40 [facility] Comment on above: Performed By: #### M G ####[id number] [place] [address] Magnesium, Serumon 2 Magnesium [Mass/Vol] 2.00 mg/dL See Below [facility] Work Phone: [phone] Comment on above: Reference Range: 1.6 0 - 2.40 No Panel Informationon 12-18 0.0 {/100_WBC} 0.0-0.0 [facility] Work Phone: [phone] Nutrition Therapy-Noteon Nutrition Therapy-Note Normal [facility] Order Reconciliationon 04-25 -2022 Order Reconciliation Normal [facility] RENAL FUNCTION PANELon 12-18 Albumin [Mass/Vol] 2.2 g/dL Low 3.4 - 5.0 [facility] Comment on above: Performed By: #### R ENAL ####[id number] [place] [address] Anion gap [Moles/Vol] 13 mmol/L Normal 10 - 20 [facility] Comment on above: Performed By: #### R ENAL ####[id number] [place] [address] Calcium [Mass/Vol] 7.4 mg/dL Low 8.6 - 10.6 [facility] Comment on above: Performed By: #### R ENAL ####[id number] [place] [address] Chloride [Moles/Vol] 109 mmol/L High 98 - 107 [facility] Comment on above: Performed By: #### R ENAL ####[id number] [place] [address] Creatinine [Mass/Vol] 0.69 mg/dL Normal 0.50 - 1.30 [facility] Comment on above: Performed By: #### R ENAL ####[id number] [place] [address] eGFR MALE >90 Normal >90 [facility] Comment on above: Result Comment: CALC ULATIONS OF ESTIMATED GFR ARE PERFORMED USING THE 2020 CKD-EPI STUDY REFIT EQUATION WITHOUT THE RACE VARIABLE FOR THE IDMS-TRACEABLE CREATININE METHODS.https://jasn.asnjournals.org/content//ASN .9824873632 Performed By: #### R ENAL ####[id number] [place] [address] Glucose [Mass/Vol] 202 mg/dL High 74 - 99 [facility] Comment on above: Performed By: #### R ENAL ####[id number] [place] [address] HCO3 (Bld) [Moles/Vol] 23 mmol/L Normal 21 - 32 [facility] Comment on above: Performed By: #### R ENAL ####[id number] [place] [address] Phosphate [Mass/Vol] 2.7 mg/dL Normal 2.5 - 4.9 [facility] Comment on above: Result Comment: The performance characteristics of phosphorus testing in heparinized plasma have been validated by the individual laboratory site where testing is performed. Testing on heparinized plasma is not approved by the FDA; however, such approval is not necessary. Performed By: #### R ENAL ####[id number] [place] [address] Potassium [Moles/Vol] 3.4 mmol/L Low 3.5 - 5.3 [facility] Comment on above: Performed By: #### R ENAL ####[id number] [place] [address] Sodium [Moles/Vol] 142 mmol/L Normal 136 - 145 [facility] Comment on above: Performed By: #### R ENAL ####[id number] [place] [address] Urea nitrogen [Mass/Vol] 10 mg/dL Normal 6 - 23 [facility] Comment on above: Performed By: #### R ENAL ####[id number] [place] [address] Rehab Note-ancillary services manager therapy apyon 12-18-2021 Rehab Note-occupational therapy Normal [facility] Renal Function Panelon 12-18 Albumin BCP dye [Mass/Vol] 2.2 g/dL below low threshold 3.4 - 5.0 [facility] Work Phone: [phone] Anion gap [Moles/Vol] 13 mmol/L 10 - 20 [facility] Work Phone: [phone] Calcium [Mass/Vol] 7.4 mg/dL below low threshold 8.6 - 10.6 [facility] Work Phone: [phone] Chloride [Moles/Vol] 109 mmol/L above high threshold 98 - 107 [facility] Work Phone: [phone] CO2 [Moles/Vol] 23 mmol/L 21 - 32 [facility] Work Phone: [phone] Creatinine [Mass/Vol] 0.69 mg/dL See Below [facility] Work Phone: [phone] Comment on above: Reference Range: 0.5 0 - 1.30 Glucose [Mass/Vol] 202 mg/dL above high threshold 74 - 99 [facility] Work Phone: [phone] Phosphate [Mass/Vol] 2.7 mg/dL 2.5 - 4.9 [facility] Work Phone: [phone] Comment on above: The performance jami acteristics of phosphorus testing in heparinized plasma have been validated by the individual laboratory site where testing is performed. Testing on heparinized plasma is not approved by the FDA; however, such approval is not necessary. Potassium [Moles/Vol] 3.4 mmol/L below low threshold 3.5 - 5.3 [facility] Work Phone: [phone] Sodium [Moles/Vol] 142 mmol/L 136 - 145 [facility] Work Phone: [phone] Urea nitrogen [Mass/Vol] 10 mg/dL 6 - 23 [facility] Work Phone: [phone] Renal Function Panel >90 >90 [facility] Work Phone: [phone] Comment on above: CALCULATIONS OF MICKEY MATED GFR ARE PERFORMED USING THE 2020 CKD-EPI STUDY REFIT EQUATION WITHOUT THE RACE VARIABLE FOR THE IDMS-TRACEABLE CREATININE METHODS.https://jasn.asnjournals.org/content//ASN .5672562750 CBCon 12-17-2021 Erythrocyte distribution width (RBC) [Ratio] 13.8 % Normal 11.5 - 14.5 [facility] Comment on above: Performed By: #### C BC ####[id number] [place] [address] Hematocrit (Bld) [Volume fraction] 30.3 % Low 41.0 - 52.0 [facility] Comment on above: Performed By: #### C BC ####[id number] [place] [address] Hemoglobin (Bld) [Mass/Vol] 10.0 g/dL Low 13.5 - 17.5 [facility] Comment on above: Performed By: #### C BC ####[id number] [place] [address] MCHC (RBC) [Mass/Vol] 33.0 g/dL Normal 32.0 - 36.0 [facility] Comment on above: Performed By: #### C BC ####[id number] [place] [address] MCV (RBC) [Entitic vol] 95 fL Normal 80 - 100 [facility] Comment on above: Performed By: #### C BC ####[id number] [place] [address] NUCLEATED RBC 0.0 /100 WBC Normal 0.0-0.0 [facility] Comment on above: Performed By: #### C BC ####[id number] [place] [address] Platelets (Bld) [#/Vol] 231 10*3/uL Normal 150 - 450 [facility] Comment on above: Performed By: #### C BC ####[id number] [place] [address] RBC 3.18 x10E12/L Low 4.50 - 5.90 [facility] Comment on above: Performed By: #### C BC ####[id number] [place] [address] WBC (Bld) [#/Vol] 9.5 10*3/uL Normal 4.4 - 11.3 [facility] Comment on above: Performed By: #### C BC ####[id number] [place] [address] Clinical Event Note-ENT FLAP CHECKon 12-17-2021 Clinical Event Note-ENT FLAP CHECK Normal [facility] Clinical Event Note-ENT FLAP CHECK Normal [facility] Daily Progress Note-ENTon Daily Progress Note-ENT Normal [facility] GLUCOSE-POCTon 12-17-2021 Glucose [Mass/Vol] 160 mg/dL High 74 - 99 [facility] Comment on above: Performed By: #### G ALLISON ####[id number] [place] [address] Glucose [Mass/Vol] 175 mg/dL High 74 - 99 [facility] Comment on above: Performed By: #### G ALLISON ####[id number] [place] [address] Glucose [Mass/Vol] 166 mg/dL High 74 - 99 [facility] Work Phone: Comment on above: Performed By: #### G ALLISON ####[id number] [place] [address] Glucose [Mass/Vol] 148 mg/dL High 74 - 99 [facility] Comment on above: Performed By: #### G ALLISON ####[id number] [place] [address] Laboratory - Chemistry and C hemistry - challengeon 12-17-2021 Glucose [Mass/Vol] 174 mg/dL above high threshold 74 - 99 [facility] Work Phone: Glucose [Mass/Vol] 160 mg/dL above high threshold 74 - 99 [facility] Work Phone: Glucose [Mass/Vol] 175 mg/dL above high threshold 74 - 99 [facility] Work Phone: Laboratory - Hematology and Cell countson 12-17-2021 Erythrocyte distribution width (RBC) [Ratio] 13.8 % See Below [facility] Work Phone: Comment on above: Reference Range: 11. 5 - 14.5 Hematocrit (Bld) [Volume fraction] 30.3 % below low threshold See Below [facility] Work Phone: [phone] Comment on above: Reference Range: 41. 0 - 52.0 Hemoglobin (Bld) [Mass/Vol] 10.0 g/dL below low threshold See Below [facility] Work Phone: [phone] Comment on above: Reference Range: 13. 5 - 17.5 MCHC (RBC) [Mass/Vol] 33.0 g/dL See Below [facility] Work Phone: [phone] Comment on above: Reference Range: 32. 0 - 36.0 MCV (RBC) [Entitic vol] 95 fL 80 - 100 [facility] Work Phone: [phone] Platelets (Bld) [#/Vol] 231 10*3/uL 150 - 450 [facility] Work Phone: [phone] RBC (Bld) [#/Vol] 3.18 {x10E12/L} below low threshold See Below [facility] Work Phone: [phone] Comment on above: Reference Range: 4.5 0 - 5.90 WBC (Bld) [#/Vol] 9.5 10*3/uL 4.4 - 11.3 [facility] Work Phone: [phone] MAGNESIUMon 12-17-2021 Magnesium [Mass/Vol] 2.20 mg/dL Normal 1.60 - 2.40 [facility] Comment on above: Performed By: #### M Manuel ####[id number] [address] Magnesium, Serumon Magnesium [Mass/Vol] 2.20 mg/dL See Below [facility] Work Phone: [phone] Comment on above: Reference Range: 1.6 0 - 2.40 No Panel Informationon 12-17 0.0 {/100_WBC} 0.0-0.0 [facility] Work Phone: RENAL FUNCTION PANELon 12-17 Albumin [Mass/Vol] 2.4 g/dL Low 3.4 - 5.0 [facility] Comment on above: Performed By: #### R ENAL ####[id number] [place] [address] Anion gap [Moles/Vol] 12 mmol/L Normal 10 - 20 [facility] Comment on above: Performed By: #### R ENAL ####[id number] [place] [address] Calcium [Mass/Vol] 7.4 mg/dL Low 8.6 - 10.6 [facility] Comment on above: Performed By: #### R ENAL ####[id number] [place] [address] Chloride [Moles/Vol] 110 mmol/L High 98 - 107 [facility] Comment on above: Performed By: #### R ENAL ####[id number] [place] [address] Creatinine [Mass/Vol] 0.74 mg/dL Normal 0.50 - 1.30 [facility] Comment on above: Performed By: #### R ENAL ####[id number] [place] [address] eGFR MALE >90 Normal >90 [facility] Comment on above: Result Comment: CALC ULATIONS OF ESTIMATED GFR ARE PERFORMED USING THE 2020 CKD-EPI STUDY REFIT EQUATION WITHOUT THE RACE VARIABLE FOR THE IDMS-TRACEABLE CREATININE METHODS.https://jasn.asnjournals.org/content/early/ASN .4161001953 Performed By: #### R ENAL ####[id number] [place] [address] Glucose [Mass/Vol] 136 mg/dL High 74 - 99 [facility] Comment on above: Performed By: #### R ENAL ####[id number] [place] [address] HCO3 (Bld) [Moles/Vol] 24 mmol/L Normal 21 - 32 [facility] Comment on above: Performed By: #### R ENAL ####[id number] [place] [address] Phosphate [Mass/Vol] 2.6 mg/dL Normal 2.5 - 4.9 [facility] Comment on above: Result Comment: The performance characteristics of phosphorus testing in heparinized plasma have been validated by the individual laboratory site where testing is performed. Testing on heparinized plasma is not approved by the FDA; however, such approval is not necessary. Performed By: #### R ENAL ####[id number] [place] [address] Potassium [Moles/Vol] 3.8 mmol/L Normal 3.5 - 5.3 [facility] Comment on above: Performed By: #### R ENAL ####[id number] [place] [address] Sodium [Moles/Vol] 142 mmol/L Normal 136 - 145 [facility] Comment on above: Performed By: #### R ENAL ####[id number] [place] [address] Urea nitrogen [Mass/Vol] 10 mg/dL Normal 6 - 23 [facility] Comment on above: Performed By: #### R ENAL ####[id number] [place] [address] Albumin [Mass/Vol] 2.4 g/dL Low 3.4 - 5.0 [facility] Comment on above: Performed By: #### R ENAL ####[id number] [place] [address] Anion gap [Moles/Vol] 14 mmol/L Normal 10 - 20 [facility] Comment on above: Performed By: #### R ENAL ####[id number] [place] [address] Calcium [Mass/Vol] 7.5 mg/dL Low 8.6 - 10.6 [facility] Comment on above: Performed By: #### R ENAL ####[id number] [place] [address] Chloride [Moles/Vol] 109 mmol/L High 98 - 107 [facility] Comment on above: Performed By: #### R ENAL ####[id number] [place] [address] Creatinine [Mass/Vol] 0.71 mg/dL Normal 0.50 - 1.30 [facility] Comment on above: Performed By: #### R ENAL ####[id number] [place] [address] eGFR MALE >90 Normal >90 [facility] Comment on above: Result Comment: CALC ULATIONS OF ESTIMATED GFR ARE PERFORMED USING THE 2020 CKD-EPI STUDY REFIT EQUATION WITHOUT THE RACE VARIABLE FOR THE IDMS-TRACEABLE CREATININE METHODS.https://jasn.asnjournals.org/content//ASN .1013736481 Performed By: #### R ENAL ####[id number] [place] [address] Glucose [Mass/Vol] 114 mg/dL High 74 - 99 [facility] Comment on above: Performed By: #### R ENAL ####[id number] [place] [address] HCO3 (Bld) [Moles/Vol] 24 mmol/L Normal 21 - 32 [facility] Comment on above: Performed By: #### R ENAL ####[id number] [place] [address] Phosphate [Mass/Vol] 3.0 mg/dL Normal 2.5 - 4.9 [facility] Comment on above: Result Comment: The performance characteristics of phosphorus testing in heparinized plasma have been validated by the individual laboratory site where testing is performed. Testing on heparinized plasma is not approved by the FDA; however, such approval is not necessary. Performed By: #### R ENAL ####[id number] [place] [address] Potassium [Moles/Vol] 3.5 mmol/L Normal 3.5 - 5.3 [facility] Comment on above: Performed By: #### R ENAL ####[id number] [place] [address] Sodium [Moles/Vol] 143 mmol/L Normal 136 - 145 [facility] Comment on above: Performed By: #### R ENAL ####[id number] [place] [address] Urea nitrogen [Mass/Vol] 10 mg/dL Normal 6 - 23 [facility] Comment on above: Performed By: #### R ENAL ####[id number] [place] [address] Albumin [Mass/Vol] 2.6 g/dL Low 3.4 - 5.0 [facility] Comment on above: Performed By: #### R ENAL ####[id number] [place] [address] Anion gap [Moles/Vol] 10 mmol/L Normal 10 - 20 [facility] Comment on above: Performed By: #### R ENAL ####[id number] [place] [address] Calcium [Mass/Vol] 7.6 mg/dL Low 8.6 - 10.6 [facility] Comment on above: Performed By: #### R ENAL ####[id number] [place] [address] Chloride [Moles/Vol] 110 mmol/L High 98 - 107 [facility] Comment on above: Performed By: #### R ENAL ####[id number] [place] [address] Creatinine [Mass/Vol] 0.73 mg/dL Normal 0.50 - 1.30 [facility] Comment on above: Performed By: #### R ENAL ####[id number] [place] [address] eGFR MALE >90 Normal >90 [facility] Comment on above: Result Comment: CALC ULATIONS OF ESTIMATED GFR ARE PERFORMED USING THE 2020 CKD-EPI STUDY REFIT EQUATION WITHOUT THE RACE VARIABLE FOR THE IDMS-TRACEABLE CREATININE METHODS.https://jasn.asnjournals.org/content//ASN .0649459398 Performed By: #### R ENAL ####[id number] [place] [address] Glucose [Mass/Vol] 151 mg/dL High 74 - 99 [facility] Comment on above: Performed By: #### R ENAL ####[id number] [place] [address] HCO3 (Bld) [Moles/Vol] 26 mmol/L Normal 21 - 32 [facility] Comment on above: Performed By: #### R ENAL ####[id number] [place] [address] Phosphate [Mass/Vol] 1.4 mg/dL Low 2.5 - 4.9 [facility] Comment on above: Result Comment: The performance characteristics of phosphorus testing in heparinized plasma have been validated by the individual laboratory site where testing is performed. Testing on heparinized plasma is not approved by the FDA; however, such approval is not necessary. Performed By: #### R ENAL ####[id number] [place] [address] Potassium [Moles/Vol] 3.0 mmol/L Low 3.5 - 5.3 [facility] Comment on above: Performed By: #### R ENAL ####[id number] [place] [address] Sodium [Moles/Vol] 143 mmol/L Normal 136 - 145 [facility] Comment on above: Performed By: #### R ENAL ####[id number] [place] [address] Urea nitrogen [Mass/Vol] 10 mg/dL Normal 6 - 23 [facility] Comment on above: Performed By: #### R ENAL ####[id number] [place] [address] Renal Function Panelon 12-17 Albumin BCP dye [Mass/Vol] 2.4 g/dL below low threshold 3.4 - 5.0 [facility] Work Phone: [phone] Anion gap [Moles/Vol] 12 mmol/L 10 - 20 [facility] Work Phone: [phone] Calcium [Mass/Vol] 7.4 mg/dL below low threshold 8.6 - 10.6 [facility] Work Phone: [phone] Chloride [Moles/Vol] 110 mmol/L above high threshold 98 - 107 [facility] Work Phone: [phone] CO2 [Moles/Vol] 24 mmol/L 21 - 32 [facility] Work Phone: [phone] Creatinine [Mass/Vol] 0.74 mg/dL See Below [facility] Work Phone: [phone] Comment on above: Reference Range: 0.5 0 - 1.30 Glucose [Mass/Vol] 136 mg/dL above high threshold 74 - 99 [facility] Work Phone: [phone] Phosphate [Mass/Vol] 2.6 mg/dL 2.5 - 4.9 [facility] Work Phone: [phone] Comment on above: The performance jami acteristics of phosphorus testing in heparinized plasma have been validated by the individual laboratory site where testing is performed. Testing on heparinized plasma is not approved by the FDA; however, such approval is not necessary. Potassium [Moles/Vol] 3.8 mmol/L 3.5 - 5.3 [facility] Work Phone: [phone] Sodium [Moles/Vol] 142 mmol/L 136 - 145 [facility] Work Phone: [phone] Urea nitrogen [Mass/Vol] 10 mg/dL 6 - 23 [facility] Work Phone: [phone] Renal Function Panel >90 >90 [facility] Work Phone: [phone] Comment on above: CALCULATIONS OF MICKEY MATED GFR ARE PERFORMED USING THE 2020 CKD-EPI STUDY REFIT EQUATION WITHOUT THE RACE VARIABLE FOR THE IDMS-TRACEABLE CREATININE METHODS.https://jasn.asnjournals.org/content//ASN .3378428286 Albumin BCP dye [Mass/Vol] 2.4 g/dL below low threshold 3.4 - 5.0 [facility] Work Phone: [phone] Anion gap [Moles/Vol] 14 mmol/L 10 - 20 [facility] Work Phone: [phone] Calcium [Mass/Vol] 7.5 mg/dL below low threshold 8.6 - 10.6 [facility] Work Phone: [phone] Chloride [Moles/Vol] 109 mmol/L above high threshold 98 - 107 [facility] Work Phone: [phone] CO2 [Moles/Vol] 24 mmol/L 21 - 32 [facility] Work Phone: [phone] Creatinine [Mass/Vol] 0.71 mg/dL See Below [facility] Work Phone: [phone] Comment on above: Reference Range: 0.5 0 - 1.30 Glucose [Mass/Vol] 114 mg/dL above high threshold 74 - 99 [facility] Work Phone: [phone] Phosphate [Mass/Vol] 3.0 mg/dL 2.5 - 4.9 [facility] Work Phone: [phone] Comment on above: The performance jami acteristics of phosphorus testing in heparinized plasma have been validated by the individual laboratory site where testing is performed. Testing on heparinized plasma is not approved by the FDA; however, such approval is not necessary. Potassium [Moles/Vol] 3.5 mmol/L 3.5 - 5.3 [facility] Work Phone: [phone] Sodium [Moles/Vol] 143 mmol/L 136 - 145 [facility] pranav Martinez man Work Phone: [phone] Urea nitrogen [Mass/Vol] 10 mg/dL 6 - 23 [facility] Work Phone: Renal Function Panel >90 >90 [facility] niurka Martinez man Work Phone: [phone] Comment on above: CALCULATIONS OF MICKEY MATED GFR ARE PERFORMED USING THE 2020 CKD-EPI STUDY REFIT EQUATION WITHOUT THE RACE VARIABLE FOR THE IDMS-TRACEABLE CREATININE METHODS.https://jasn.asnjournals.org/content/early//ASN .7298603156 CBCon 12-16-2021 Erythrocyte distribution width (RBC) [Ratio] 13.6 % Normal 11.5 - 14.5 [facility] Comment on above: Performed By: #### C BC ####[id number] [place] [address] Hematocrit (Bld) [Volume fraction] 29.4 % Low 41.0 - 52.0 [facility] Comment on above: Performed By: #### C BC ####[id number] [place] [address] Hemoglobin (Bld) [Mass/Vol] 10.0 g/dL Low 13.5 - 17.5 [facility] Comment on above: Performed By: #### C BC ####[id number] [place] [address] MCHC (RBC) [Mass/Vol] 34.0 g/dL Normal 32.0 - 36.0 [facility] Comment on above: Performed By: #### C BC ####[id number] [place] [address] MCV (RBC) [Entitic vol] 90 fL Normal 80 - 100 [facility] Comment on above: Performed By: #### C BC ####[id number] [place] [address] NUCLEATED RBC 0.0 /100 WBC Normal 0.0-0.0 [facility] Comment on above: Performed By: #### C BC ####[id number] [place] [address] Platelets (Bld) [#/Vol] 223 10*3/uL Normal 150 - 450 [facility] Comment on above: Performed By: #### C BC ####[id number] [place] [address] RBC 3.25 x10E12/L Low 4.50 - 5.90 [facility] Comment on above: Performed By: #### C BC ####[id number] [place] [address] WBC (Bld) [#/Vol] 10.1 10*3/uL Normal 4.4 - 11.3 [facility] Comment on above: Performed By: #### C BC ####[id number] [place] [address] Clinical Event Note-ENT flap checkon 12-16-2021 Clinical Event Note-ENT flap check Normal [facility] Daily Progress Note-ENTon Daily Progress Note-ENT Normal [facility] GLUCOSE-POCTon 12-16-2021 Glucose [Mass/Vol] 204 mg/dL High 74 - 99 [facility] Comment on above: Performed By: #### G ALLISON ####[id number] [place] [address] Glucose [Mass/Vol] 241 mg/dL High 74 - 99 [facility] Comment on above: Performed By: #### G ALLISON ####[id number] [place] [address] Glucose [Mass/Vol] 232 mg/dL High 74 - 99 [facility] Comment on above: Performed By: #### G ALLISON ####[id number] [place] [address] Glucose [Mass/Vol] 202 mg/dL High 74 - 99 [facility] Comment on above: Performed By: #### G ALLISON ####[id number] [place] [address] Laboratory - Chemistry and C hemistry - challengeon 12-16-2021 Glucose [Mass/Vol] 148 mg/dL above high threshold 74 - 99 [facility] Work Phone: [phone] Glucose [Mass/Vol] 204 mg/dL above high threshold 74 - 99 [facility] Work Phone: [phone] Glucose [Mass/Vol] 241 mg/dL above high threshold 74 - 99 [facility] Work Phone: [phone] Glucose [Mass/Vol] 232 mg/dL above high threshold 74 - 99 [facility] Work Phone: [phone] Laboratory - Hematology and Cell countson 12-16-2021 Erythrocyte distribution width (RBC) [Ratio] 13.6 % See Below [facility] Work Phone: [phone] Comment on above: Reference Range: 11. 5 - 14.5 Hematocrit (Bld) [Volume fraction] 29.4 % below low threshold See Below [facility] Work Phone: [phone] Comment on above: Reference Range: 41. 0 - 52.0 Hemoglobin (Bld) [Mass/Vol] 10.0 g/dL below low threshold See Below [facility] Work Phone: [phone] Comment on above: Reference Range: 13. 5 - 17.5 MCHC (RBC) [Mass/Vol] 34.0 g/dL See Below [facility] Work Phone: [phone] Comment on above: Reference Range: 32. 0 - 36.0 MCV (RBC) [Entitic vol] 90 fL 80 - 100 [facility] Work Phone: [phone] Platelets (Bld) [#/Vol] 223 10*3/uL 150 - 450 [facility] Work Phone: [phone] RBC (Bld) [#/Vol] 3.25 {x10E12/L} below low threshold See Below [facility] Work Phone: Comment on above: Reference Range: 4.5 0 - 5.90 WBC (Bld) [#/Vol] 10.1 10*3/uL 4.4 - 11.3 [facility] Work Phone: MAGNESIUMon 12-16-2021 Magnesium [Mass/Vol] 1.85 mg/dL Normal 1.60 - 2.40 [facility] Comment on above: Performed By: #### M G ####[id number] [place] [address] Magnesium, Serumon Magnesium [Mass/Vol] 1.85 mg/dL See Below [facility] Work Phone: Comment on above: Reference Range: 1.6 0 - 2.40 No Panel Informationon 12-16 0.0 {/100_WBC} 0.0-0.0 [facility] Work Phone: RENAL FUNCTION PANELon 12-16 Albumin [Mass/Vol] 2.7 g/dL Low 3.4 - 5.0 [facility] Comment on above: Order Comment: VIDAL Sharp CALLED RB TO MEKA PAVON, 12/16/2021 08:37 Performed By: #### R ENAL ####[id number] [place] [address] Anion gap [Moles/Vol] 11 mmol/L Normal 10 - 20 [facility] Comment on above: Order Comment: VIDAL Sharp CALLED RB TO MEKA SAVANAH, 12/16/2021 08:37 Performed By: #### R ENAL ####[id number] [place] [address] Calcium [Mass/Vol] 7.7 mg/dL Low 8.6 - 10.6 [facility] Comment on above: Order Comment: VIDAL Sharp CALLED RB TO MEKA PAVON, 12/16/2021 08:37 Performed By: #### R ENAL ####[id number] [place] [address] Chloride [Moles/Vol] 106 mmol/L Normal 98 - 107 [facility] Comment on above: Order Comment: VIDAL Sharp CALLED RB TO MEKA PAVON, 12/16/2021 08:37 Performed By: #### R ENAL ####[id number] [place] [address] Creatinine [Mass/Vol] 0.74 mg/dL Normal 0.50 - 1.30 [facility] Comment on above: Order Comment: VIDAL Sharp CALLED RB TO MEKA PAVON, 12/16/2021 08:37 Performed By: #### R ENAL ####[id number] [place] [address] eGFR MALE >90 Normal >90 [facility] Comment on above: Order Comment: VIDAL Sharp CALLED RB TO MEKA PAVON, 12/16/2021 08:37 Result Comment: CALC ULATIONS OF ESTIMATED GFR ARE PERFORMED USING THE 2020 CKD-EPI STUDY REFIT EQUATION WITHOUT THE RACE VARIABLE FOR THE IDMS-TRACEABLE CREATININE METHODS.https://jasn.asnjournals.org/content/early//ASN .4393877062 Performed By: #### R ENAL ####[id number] [place] [address] Glucose [Mass/Vol] 213 mg/dL High 74 - 99 [facility] Comment on above: Order Comment: VIDAL Sharp CALLED RB TO MEKA PAVON, 12/16/2021 08:37 Performed By: #### R ENAL ####[id number] [place] [address] HCO3 (Bld) [Moles/Vol] 27 mmol/L Normal 21 - 32 [facility] Comment on above: Order Comment: VIDAL Sharp CALLED RB TO MEKA PAVON, 12/16/2021 08:37 Performed By: #### R ENAL ####[id number] [place] [address] Phosphate [Mass/Vol] 1.2 mg/dL Low 2.5 - 4.9 [facility] Comment on above: Order Comment: VIDAL Sharp CALLED RB TO MEKA PAVON, 12/16/2021 08:37 Result Comment: The performance characteristics of phosphorus testing in heparinized plasma have been validated by the individual laboratory site where testing is performed. Testing on heparinized plasma is not approved by the FDA; however, such approval is not necessary. Performed By: #### R ENAL ####[id number] [place] [address] Potassium [Moles/Vol] 2.9 mmol/L Critically low 3.5 - 5.3 [facility] Comment on above: Order Comment: VIDAL Sharp CALLED RB TO MEKA PAVON, 12/16/2021 08:37 Result Comment: VIDAL Sharp CALLED RB TO MEKA PAVON, 12/16/2021 08:37 Performed By: #### R ENAL ####[id number] [place] [address] Sodium [Moles/Vol] 141 mmol/L Normal 136 - 145 [facility] Comment on above: Order Comment: VIDAL Sharp CALLED RB TO MEKA PAVON, 12/16/2021 08:37 Performed By: #### R ENAL ####[id number] [place] [address] Urea nitrogen [Mass/Vol] 11 mg/dL Normal 6 - 23 [facility] Comment on above: Order Comment: VIDAL Sharp CALLED RB TO MEKA PAVON, 12/16/2021 08:37 Performed By: #### R ENAL ####[id number] [place] [address] Renal Function Panelon 12-16 Albumin BCP dye [Mass/Vol] 2.6 g/dL below low threshold 3.4 - 5.0 [facility] Work Phone: Anion gap [Moles/Vol] 10 mmol/L 10 - 20 [facility] Work Phone: Calcium [Mass/Vol] 7.6 mg/dL below low threshold 8.6 - 10.6 [facility] Work Phone: [phone] Chloride [Moles/Vol] 110 mmol/L above high threshold 98 - 107 [facility] Work Phone: [phone] CO2 [Moles/Vol] 26 mmol/L 21 - 32 [facility] y[facility] Work Phone: [phone] Creatinine [Mass/Vol] 0.73 mg/dL See Below [facility] Work Phone: [phone] Comment on above: Reference Range: 0.5 0 - 1.30 Glucose [Mass/Vol] 151 mg/dL above high threshold 74 - 99 [facility] Work Phone: [phone] Phosphate [Mass/Vol] 1.4 mg/dL below low threshold 2.5 - 4.9 [facility] Work Phone: [phone] Comment on above: The performance jami acteristics of phosphorus testing in heparinized plasma have been validated by the individual laboratory site where testing is performed. Testing on heparinized plasma is not approved by the FDA; however, such approval is not necessary. Potassium [Moles/Vol] 3.0 mmol/L below low threshold 3.5 - 5.3 [facility] Work Phone: [phone] Sodium [Moles/Vol] 143 mmol/L 136 - 145 [facility] [facility] Work Phone: [phone] Urea nitrogen [Mass/Vol] 10 mg/dL 6 - 23 [facility] Work Phone: [phone] Renal Function Panel >90 >90 [facility] Work Phone: [phone] Comment on above: CALCULATIONS OF MICKEY MATED GFR ARE PERFORMED USING THE 2020 CKD-EPI STUDY REFIT EQUATION WITHOUT THE RACE VARIABLE FOR THE IDMS-TRACEABLE CREATININE METHODS.https://jasn.asnjournals.org/content//ASN .2067612679 Albumin BCP dye [Mass/Vol] 2.7 g/dL below low threshold 3.4 - 5.0 [facility] Work Phone: [phone] Anion gap [Moles/Vol] 11 mmol/L 10 - 20 [facility] Work Phone: [phone] Calcium [Mass/Vol] 7.7 mg/dL below low threshold 8.6 - 10.6 [facility] Work Phone: [phone] Chloride [Moles/Vol] 106 mmol/L 98 - 107 [facility] Work Phone: [phone] CO2 [Moles/Vol] 27 mmol/L 21 - 32 [facility] Work Phone: [phone] Creatinine [Mass/Vol] 0.74 mg/dL See Below [facility] Work Phone: [phone] Comment on above: Reference Range: 0.5 0 - 1.30 Glucose [Mass/Vol] 213 mg/dL above high threshold 74 - 99 [facility] Work Phone: [phone] Phosphate [Mass/Vol] 1.2 mg/dL below low threshold 2.5 - 4.9 [facility] Work Phone: [phone] Comment on above: The performance jami acteristics of phosphorus testing in heparinized plasma have been validated by the individual laboratory site where testing is performed. Testing on heparinized plasma is not approved by the FDA; however, such approval is not necessary. Potassium [Moles/Vol] 2.9 mmol/L Critically low 3.5 - 5.3 [facility] Work Phone: [phone] Comment on above: VIDAL Sharp CALLED RB TO MEKA PAVON, 12/16/2021 08:37 Sodium [Moles/Vol] 141 mmol/L 136 - 145 [facility] laryn renata[facility] Work Phone: [phone] Urea nitrogen [Mass/Vol] 11 mg/dL 6 - 23 [facility] Work Phone: Renal Function Panel >90 >90 [facility] niurka yanez[facility] Work Phone: Comment on above: CALCULATIONS OF MICKEY MATED GFR ARE PERFORMED USING THE 2020 CKD-EPI STUDY REFIT EQUATION WITHOUT THE RACE VARIABLE FOR THE IDMS-TRACEABLE CREATININE METHODS.https://jasn.asnjournals.org/content//ASN .6992316369 Admission Risk Screen - Adul ton 12-15-2021 Admission Risk Screen - Adult Normal [facility] CBCon 12-15-2021 Erythrocyte distribution width (RBC) [Ratio] 13.5 % Normal 11.5 - 14.5 [facility] Comment on above: Performed By: #### C BC ####[id number] [place] [address] Hematocrit (Bld) [Volume fraction] 32.0 % Low 41.0 - 52.0 [facility] Comment on above: Performed By: #### C BC ####[id number] [place] [address] Hemoglobin (Bld) [Mass/Vol] 11.1 g/dL Low 13.5 - 17.5 [facility] Comment on above: Performed By: #### C BC ####[id number] [place] [address] MCHC (RBC) [Mass/Vol] 34.7 g/dL Normal 32.0 - 36.0 [facility] Comment on above: Performed By: #### C BC ####[id number] [place] [address] MCV (RBC) [Entitic vol] 90 fL Normal 80 - 100 [facility] Comment on above: Performed By: #### C BC ####[id number] [place] [address] NUCLEATED RBC 0.0 /100 WBC Normal 0.0-0.0 [facility] Comment on above: Performed By: #### C BC ####[id number] [place] [address] Platelets (Bld) [#/Vol] 268 10*3/uL Normal 150 - 450 [facility] Comment on above: Performed By: #### C BC ####[id number] [place] [address] RBC 3.54 x10E12/L Low 4.50 - 5.90 [facility] Comment on above: Performed By: #### C BC ####[id number] [place] [address] WBC (Bld) [#/Vol] 11.5 10*3/uL High 4.4 - 11.3 [facility] Comment on above: Performed By: #### C BC ####[id number] [place] [address] HCT Canceled Normal [facility] Comment on above: Order Comment: TEST CBC WAS CANCELLED, 12/15/2021 08:48 NO SPECIMEN RECEIVED IN LAB. Performed By: #### C BC ####[id number] [place] [address] HGB Canceled Normal [facility] Comment on above: Order Comment: TEST CBC WAS CANCELLED, 12/15/2021 08:48 NO SPECIMEN RECEIVED IN LAB. Performed By: #### C BC ####[id number] [place] [address] MCHC Canceled Normal [facility] Comment on above: Order Comment: TEST CBC WAS CANCELLED, 12/15/2021 08:48 NO SPECIMEN RECEIVED IN LAB. Performed By: #### C BC ####[id number] [place] [address] MCV Canceled Normal [facility] Comment on above: Order Comment: TEST CBC WAS CANCELLED, 12/15/2021 08:48 NO SPECIMEN RECEIVED IN LAB. Performed By: #### C BC ####[id number] [place] [address] NUCLEATED RBC Canceled Normal [facility] Comment on above: Order Comment: TEST CBC WAS CANCELLED, 12/15/2021 08:48 NO SPECIMEN RECEIVED IN LAB. Performed By: #### C BC ####[id number] [place] [address] PLT Canceled Normal [facility] Comment on above: Order Comment: TEST CBC WAS CANCELLED, 12/15/2021 08:48 NO SPECIMEN RECEIVED IN LAB. Performed By: #### C BC ####[id number] [place] [address] RBC Canceled Normal [facility] Comment on above: Order Comment: TEST CBC WAS CANCELLED, 12/15/2021 08:48 NO SPECIMEN RECEIVED IN LAB. Performed By: #### C BC ####[id number] [place] [address] RDW-CV Canceled Normal [facility] Comment on above: Order Comment: TEST CBC WAS CANCELLED, 12/15/2021 08:48 NO SPECIMEN RECEIVED IN LAB. Performed By: #### C BC ####[id number] [place] [address] WBC Canceled Normal [facility] Comment on above: Order Comment: TEST CBC WAS CANCELLED, 12/15/2021 08:48 NO SPECIMEN RECEIVED IN LAB. Performed By: #### C BC ####[id number] [place] [address] Clinical Event Note-ENT flap checkon 12-15-2021 Clinical Event Note-ENT flap check Normal [facility] Clinical Event Note-Flap Cally ckon 12-15-2021 Clinical Event Note-Flap Check Normal [facility] Clinical Event Note-Flap Check Normal [facility] Daily Progress Note-ENTon Daily Progress Note-ENT Normal [facility] Discharge [id number] Discharge Profile2 Normal [facility] GLUCOSE-POCTon 12-15-2021 Glucose [Mass/Vol] 235 mg/dL High 74 - 99 [facility] Comment on above: Performed By: #### G ALLISON ####[id number] [place] [address] Glucose [Mass/Vol] 219 mg/dL High 74 - 99 [facility] Comment on above: Performed By: #### G ALLISON ####[id number] [place] [address] Glucose [Mass/Vol] 250 mg/dL High 74 - 99 [facility] Comment on above: Performed By: #### G ALLISON ####[id number] [place] [address] Laboratory - Chemistry and C hemistry - challengeon 12-15-2021 Glucose [Mass/Vol] 202 mg/dL above high threshold 74 - 99 [facility] Work Phone: [phone] Glucose [Mass/Vol] 235 mg/dL above high threshold 74 - 99 [facility] Work Phone: [phone] Glucose [Mass/Vol] 219 mg/dL above high threshold 74 - 99 [facility] Work Phone: [phone] Glucose [Mass/Vol] 250 mg/dL above high threshold 74 - 99 [facility] Work Phone: [phone] Laboratory - Hematology and Cell countson 12-15-2021 Erythrocyte distribution width (RBC) [Ratio] 13.5 % See Below [facility] Work Phone: [phone] Comment on above: Reference Range: 11. 5 - 14.5 Hematocrit (Bld) [Volume fraction] 32.0 % below low threshold See Below [facility] Work Phone: [phone] Comment on above: Reference Range: 41. 0 - 52.0 Hemoglobin (Bld) [Mass/Vol] 11.1 g/dL below low threshold See Below [facility] Work Phone: [phone] Comment on above: Reference Range: 13. 5 - 17.5 MCHC (RBC) [Mass/Vol] 34.7 g/dL See Below [facility] Work Phone: [phone] Comment on above: Reference Range: 32. 0 - 36.0 MCV (RBC) [Entitic vol] 90 fL 80 - 100 [facility] Work Phone: [phone] Platelets (Bld) [#/Vol] 268 10*3/uL 150 - 450 [facility] Work Phone: [phone] RBC (Bld) [#/Vol] 3.54 {x10E12/L} below low threshold See Below [facility] Work Phone: [phone] Comment on above: Reference Range: 4.5 0 - 5.90 WBC (Bld) [#/Vol] 11.5 10*3/uL above high threshold 4.4 - 11.3 [facility] Work Phone: [phone] MAGNESIUMon 12-15-2021 Magnesium [Mass/Vol] 1.37 mg/dL Low 1.60 - 2.40 [facility] Comment on above: Performed By: #### M G ####[id number] [place] [address] Magnesium, Serumon 2 Magnesium [Mass/Vol] 1.37 mg/dL below low threshold See Below [facility] Work Phone: [phone] Comment on above: Reference Range: 1.6 0 - 2.40 No Panel Informationon 12-15 0.0 {/100_WBC} 0.0-0.0 [facility] Work Phone: [phone] Nutrition Therapy-Assessment on 12-15-2021 Nutrition Therapy-Assessment Normal [facility] OT Evaluation v2-occupationa l therapyon 12-15-2021 OT Evaluation v2-occupational therapy Normal [facility] PREALBUMINon 12-15-2021 Prealbumin [Mass/Vol] 11.8 mg/dL Low 18.0 - 40.0 [facility] Comment on above: Performed By: #### P REAL ####[id number] [place] [address] PT Evaluation v2-individual therapyon 12-15-2021 PT Evaluation v2-individual therapy Normal [facility] Patient Profile - Adult v2on 12-15-2021 Patient Profile - Adult v2 Normal [facility] Prealbumin, Serumon 12-16-19 Prealbumin Nephelometry [Mass/Vol] 11.8 mg/dL below low threshold See Below [facility] Work Phone: Comment on above: Reference Range: 18. 0 - 40.0 RENAL FUNCTION PANELon 12-15 Albumin [Mass/Vol] 3.1 g/dL Low 3.4 - 5.0 [facility] Comment on above: Order Comment: HEME K CALLED RB TO JEROME ZARAGOZA, 12/15/2021 11:11 Performed By: #### R ENAL ####[id number] [place] [address] Anion gap [Moles/Vol] 12 mmol/L Normal 10 - 20 [facility] Comment on above: Order Comment: HEME K CALLED RB TO JEROME ZARAGOZA, 12/15/2021 11:11 Performed By: #### R ENAL ####[id number] [place] [address] Calcium [Mass/Vol] 7.6 mg/dL Low 8.6 - 10.6 [facility] Comment on above: Order Comment: HEME K CALLED RB TO JEROME ZARAGOZA, 12/15/2021 11:11 Performed By: #### R ENAL ####[id number] [place] [address] Chloride [Moles/Vol] 104 mmol/L Normal 98 - 107 [facility] Comment on above: Order Comment: HEME K CALLED RB TO JEROME ZARAGOZA, 12/15/2021 11:11 Performed By: #### R ENAL ####[id number] [place] [address] Creatinine [Mass/Vol] 0.79 mg/dL Normal 0.50 - 1.30 [facility] Comment on above: Order Comment: HEME K CALLED RB TO JEROME ZARAGOZA, 12/15/2021 11:11 Performed By: #### R ENAL ####[id number] [place] [address] eGFR MALE >90 Normal >90 [facility] Comment on above: Order Comment: HEME K CALLED RB TO JEROME ZARAGOZA, 12/15/2021 11:11 Result Comment: CALC ULATIONS OF ESTIMATED GFR ARE PERFORMED USING THE 2020 CKD-EPI STUDY REFIT EQUATION WITHOUT THE RACE VARIABLE FOR THE IDMS-TRACEABLE CREATININE METHODS.https://jasn.asnjournals.org/content/early//ASN .2651117071 Performed By: #### R ENAL ####[id number] [place] [address] Glucose [Mass/Vol] 159 mg/dL High 74 - 99 [facility] Comment on above: Order Comment: HEME K CALLED RB TO JEROME ZARAGOZA, 12/15/2021 11:11 Performed By: #### R ENAL ####[id number] [place] [address] HCO3 (Bld) [Moles/Vol] 27 mmol/L Normal 21 - 32 [facility] Comment on above: Order Comment: HEME K CALLED RB TO JEROME ZARAGOZA, 12/15/2021 11:11 Performed By: #### R ENAL ####[id number] [place] [address] Phosphate [Mass/Vol] 2.0 mg/dL Low 2.5 - 4.9 [facility] Comment on above: Order Comment: HEME K CALLED RB TO JEROME ZARAGOZA, 12/15/2021 11:11 Result Comment: The performance characteristics of phosphorus testing in heparinized plasma have been validated by the individual laboratory site where testing is performed. Testing on heparinized plasma is not approved by the FDA; however, such approval is not necessary.MILD HEMOLYSIS DETECTED. The result may be falsely elevated due tohemolysis or other interferents. Clinical correlation is recommended.Repeat testing may be considered. Performed By: #### R ENAL ####[id number] [place] [address] Potassium [Moles/Vol] 2.8 mmol/L Critically low 3.5 - 5.3 [facility] Comment on above: Order Comment: HEME K CALLED RB TO JEROME ZARAGOZA, 12/15/2021 11:11 Result Comment: MILD HEMOLYSIS DETECTED. The result may be falsely elevated due tohemolysis or other interferents. Clinical correlation is recommended.Repeat testing may be considered.HEME K CALLED RB TO JEROME ZARAGOZA, 12/15/2021 11:11 Performed By: #### R ENAL ####[id number] [place] [address] Sodium [Moles/Vol] 140 mmol/L Normal 136 - 145 [facility] Comment on above: Order Comment: HEME K CALLED RB TO JEROME ZARAGOZA, 12/15/2021 11:11 Performed By: #### R ENAL ####[id number] [place] [address] Urea nitrogen [Mass/Vol] 9 mg/dL Normal 6 - 23 [facility] Comment on above: Order Comment: HEME K CALLED RB TO JEROME ZARAGOZA, 12/15/2021 11:11 Performed By: #### R ENAL ####[id number] [place] [address] Renal Function Panelon 12-15 Albumin BCP dye [Mass/Vol] 3.1 g/dL below low threshold 3.4 - 5.0 [facility] Work Phone: [phone] Anion gap [Moles/Vol] 12 mmol/L 10 - 20 [facility] Work Phone: [phone] Calcium [Mass/Vol] 7.6 mg/dL below low threshold 8.6 - 10.6 [facility] Work Phone: [phone] Chloride [Moles/Vol] 104 mmol/L 98 - 107 [facility] Work Phone: [phone] CO2 [Moles/Vol] 27 mmol/L 21 - 32 [facility] y[facility] Work Phone: [phone] Creatinine [Mass/Vol] 0.79 mg/dL See Below [facility] Work Phone: Comment on above: Reference Range: 0.5 0 - 1.30 Glucose [Mass/Vol] 159 mg/dL above high threshold 74 - 99 [facility] Work Phone: Phosphate [Mass/Vol] 2.0 mg/dL below low threshold 2.5 - 4.9 [facility] Work Phone: Comment on above: The performance jami acteristics of phosphorus testing in heparinized plasma have been validated by the individual laboratory site where testing is performed. Testing on heparinized plasma is not approved by the FDA; however, such approval is not necessary.MILD HEMOLYSIS DETECTED. The result may be falsely elevated due tohemolysis or other interferents. Clinical correlation is recommended.Repeat testing may be considered. Potassium [Moles/Vol] 2.8 mmol/L Critically low 3.5 - 5.3 [facility] Work Phone: Comment on above: MILD HEMOLYSIS DETEC CHANG. The result may be falsely elevated due tohemolysis or other interferents. Clinical correlation is recommended.Repeat testing may be considered.HEME K CALLED RB TO JEROME NIK, 12/15/2021 11:11 Sodium [Moles/Vol] 140 mmol/L 136 - 145 [facility] [facility] Work Phone: Urea nitrogen [Mass/Vol] 9 mg/dL 6 - 23 [facility] Work Phone: Renal Function Panel >90 >90 [facility] Work Phone: Comment on above: CALCULATIONS OF MICKEY MATED GFR ARE PERFORMED USING THE 2020 CKD-EPI STUDY REFIT EQUATION WITHOUT THE RACE VARIABLE FOR THE IDMS-TRACEABLE CREATININE METHODS.https://jasn.asnjournals.org/content//ASN .3833160636 TSHon 12-15-2021 TSH Qn 0.24 m[IU]/L Low 0.44 - 3.98 [facility] Comment on above: Result Comment: TSH testing is performed using different testing methodology at [facility] than at [facility]. Direct result comparisons should only be made within the same method. Performed By: #### T SH2 ####[id number] TSH - Thyroid Stimulating Ho rosamaria, Serumon 12-15-2021 TSH Qn 0.24 m[IU]/L below low threshold See Below [facility] Work Phone: Comment on above: Reference Range: 0.4 4 - 3.98 TSH testing is performed using different testing methodology at [facility] than at [facility]. Direct result comparisons should only be made within the same method. ABO/RH GROUP TESTon 12-15-19 ABO TYPE O Normal [facility] Comment on above: Performed By: #### V ERAB ####[id number] [place] [address] RH TYPE Positive Normal [facility] Comment on above: Performed By: #### V ERAB ####[id number] [place] [address] ARTERIAL FULL PANELon 2021 Anion gap [Moles/Vol] 15 mmol/L Normal 10 - 25 [facility] Comment on above: Performed By: #### A FPA4 ####[id number] [place] [address] BASE EXCESS-BLOOD 0.1 mmol/L Normal -2.0 - 3.0 [facility] Comment on above: Performed By: #### A FPA4 ####[id number] [place] [address] BICARB, CALCULATED 24.7 mmol/L Normal 22.0 - 26.0 [facility] Comment on above: Performed By: #### A FPA4 ####[id number] [place] [address] CALCIUM,IONIZED 1.15 mmol/L Normal 1.10 - 1.33 [facility] Comment on above: Performed By: #### A FPA4 ####[id number] [place] [address] Chloride [Moles/Vol] 97 mmol/L Low 98 - 107 [facility] Comment on above: Performed By: #### A FPA4 ####[id number] [place] [address] Glucose [Mass/Vol] 172 mg/dL High 74 - 99 [facility] Comment on above: Performed By: #### A FPA4 ####[id number] [place] [address] Hematocrit (Bld) [Volume fraction] 38.0 % Low 41.0 - 52.0 [facility] Comment on above: Performed By: #### A FPA4 ####[id number] [place] [address] Hemoglobin (Bld) [Mass/Vol] 12.5 g/dL Low 13.5 - 17.5 [facility] Comment on above: Performed By: #### A FPA4 ####[id number] [place] [address] Lactate [Moles/Vol] 1.4 mmol/L Normal 0.4 - 2.0 [facility] Comment on above: Performed By: #### A FPA4 ####[id number] [place] [address] OXY HGB 95.3 % Normal 94.0 - 98.0 [facility] Comment on above: Performed By: #### A FPA4 ####[id number] [place] [address] Oxygen (Bld) [Partial pressure] 99 mm[Hg] High 85 - 95 [facility] Comment on above: Performed By: #### A FPA4 ####[id number] [place] [address] PATIENT TEMPERATURE 37.0 degrees C Normal [facility] Comment on above: Result Comment: NOTE : PATIENT RESULTS ARE NOT CORRECTED FOR TEMPERATURE. Performed By: #### A FPA4 ####[id number] [place] [address] PCO2 39 mmHg Normal 38 - 42 [facility] Comment on above: Performed By: #### A FPA4 ####[id number] [place] [address] pH (Bld) 7.41 [pH] Normal 7.38 - 7.42 [facility] Comment on above: Performed By: #### A FPA4 ####[id number] [place] [address] Potassium [Moles/Vol] 2.6 mmol/L Critically low 3.5 - 5.3 [facility] Comment on above: Performed By: #### A FPA4 ####[id number] [place] [address] SO2 99 % Normal 94 - 100 [facility] Comment on above: Performed By: #### A FPA4 ####[id number] [place] [address] Sodium [Moles/Vol] 134 mmol/L Low 136 - 145 [facility] Comment on above: Performed By: #### A FPA4 ####[id number] [place] [address] GLUCOSE-POCTon 12-14-2021 Glucose [Mass/Vol] 272 mg/dL High 74 - 99 [facility] Comment on above: Performed By: #### G ALLISON ####[id number] [place] [address] Glucose [Mass/Vol] 162 mg/dL High 74 - 99 [facility] Comment on above: Performed By: #### G ALLISON ####[id number] [place] [address] Laboratory - Blood bankon ABO group Nom (Bld) O MG-Ot olaryn [employer]-Evie man Work Phone: Rh immune globulin screen (Bld) [Interp] Positive MG-Otolaryn gology-Evie man Work Phone: Laboratory - Chemistry and C hemistry - challengeon 12-14-2021 Glucose [Mass/Vol] 272 mg/dL above high threshold 74 - 99 MG-Otolaryn gology-Evie man Work Phone: [phone] Anion gap 4 (BldA) [Moles/Vol] 15 mmol/L 10 - 25 MG-Otolaryn gology-Veie man Work Phone: [phone] Base excess Calc (Bld) [Moles/Vol] 0.1 mmol/L -2.0 - 3.0 MG-Otolaryn gology-Evie man Work Phone: [phone] Calcium.ionized (BldA) [Moles/Vol] 1.15 mmol/L See Below MG-Otolaryn gology-Evie man Work Phone: [phone] Comment on above: Reference Range: 1.1 0 - 1.33 Chloride (BldA) [Moles/Vol] 97 mmol/L below low threshold 98 - 107 MG-Otolaryn bobbyogy-Evie man Work Phone: [phone] CO2 (Bld) [Partial pressure] 39 mm[Hg] 38 - 42 MG-Otolaryn gology-Evie man Work Phone: 141 Glucose [Mass/Vol] 172 mg/dL above high threshold 74 - 99 MG-Otolaryn gology-Evie man Work Phone: [phone] HCO3 (Bld) [Moles/Vol] 24.7 mmol/L See Below MG-Otolaryn gology-Evie man Work Phone: [phone] Comment on above: Reference Range: 22. 0 - 26.0 Lactate (BldA) [Moles/Vol] 1.4 mmol/L 0.4 - 2.0 MG-Otolaryn gology-Evie man Work Phone: [phone] Oxygen (Bld) [Partial pressure] 99 mm[Hg] above high threshold 85 - 95 MG-Otolaryn gology-Evie man Work Phone: [phone] Oxyhemoglobin (BldA) [Mass fraction] 95.3 % See Below MG-Otolaryn gology-Evie man Work Phone: [phone] Comment on above: Reference Range: 94. 0 - 98.0 pH (Bld) 7.41 [pH] See Below MG-Otolaryn [employer]-Evie [place] Work Phone: Comment on above: Reference Range: 7.3 8 - 7.42 Potassium (BldA) [Moles/Vol] 2.6 mmol/L Critically low 3.5 - 5.3 MG-Otolaryn [employer]-[place] Work Phone: Sodium (BldA) [Moles/Vol] 134 mmol/L below low threshold 136 - 145 MG-Otolaryn [employer]-[place] Work Phone: Glucose [Mass/Vol] 162 mg/dL above high threshold 74 - 99 MG-Otolaryn [employer]-[place] Work Phone: Laboratory - Hematology and Cell countson 12-14-2021 Hematocrit Est (Bld) [Volume fraction] 38.0 % below low threshold See Below MG-Otolaryn [employer]Evie [place] Work Phone: Comment on above: Reference Range: 41. 0 - 52.0 Hemoglobin (Bld) [Mass/Vol] 12.5 g/dL below low threshold See Below MG-Otolaryn [employer]Evie [place] Work Phone: Comment on above: Reference Range: 13. 5 - 17.5 Operative Reports - CMCon Operative Reports - [facility] Normal [facility] Patient Profile - Preop v3on 12-14-2021 Patient Profile - Preop v3 Normal [facility] Surgical Pathology Depar tmenton 12-14-2021 [facility] Surgical Pathology Department Normal [facility] Comment on above: Performed By: #### U [facility] ####[facility] Surgical Pathology [id number] [place] [address] Order Reconciliationon 12-13 Order Reconciliation Normal [facility] CORONAVIRUS 2019, SCREEN ASY MPTOMATICon 12-12-2021 SARS-CoV-2 (COVID-19) RNA EMORY+probe Ql (Unsp spec) Not detected Normal Not Detected [facility] Comment on above: Result Comment: .Thi s assay is designed to detect the N, ORF1ab and/or S genes of [id number] nucleic acid amplification. A Negative (NOT DETECTED) result does notpreclude 2019-nCoV infection since the adequacy of sample collection and/orlow viral burden may result in presence of viral nucleic acids below theclinical sensitivity of this test method. Negative (NOT DETECTED) resultshould not be used as the sole basis for treatment or other patientmanagement decisions. Rather negative results should be combined withclinical observations, patient history, and epidemiological information tomake patient management decisions.Fact sheet for providers: https://www.fda.gov/media/131723/downloadFact sheet for patients: https://www.fda.gov/media/585730/downloadThis test has received FDA Emergency Use Authorization (EUA) and has beenverified by [facility] ([facility]). This testis only authorized for the duration of time that circumstances exist tojustify the authorization of the emergency use of in vitro diagnostic testsfor the detection of SARS-CoV-2 virus and/or diagnosis of COVID-19 infectionunder section 564(b)(1) of the Act, 21 U.S.C. 360bbb-3(b)(1), unless theauthorization is terminated or revoked sooner.[facility] is certified under CLIA-88 asqualified to perform high complexity testing. Testing is performed in [facility] laboratories located at [id number] [place] [address]. Performed By: #### C OVSC ####[id number] [place] [address] Lab Specimen Source Nasal, Nasopharyngeal Normal [facility] Comment on above: Performed By: #### C OVSC ####[id number] [place] [address] Coronavirus 2019 RNA by PCR, Screening Asymptomticon 12-12-2021 Coronavirus 2019 RNA by PCR, Screening Asymptomtic Not detected Normal See Below MG-Otolaryn gology-Evie man Work Phone: Comment on above: SOURCE: Nasal, Nasop haryngealReference Range: Not Detected.This assay is designed to detect the N, ORF1ab and/or S genes of SARS-CoV-2 via nucleic acid amplification. A Negative (NOT DETECTED) result does not preclude 2019-nCoV infection since the adequacy of sample collection and/or low viral burden may result in presence of viral nucleic acids below the clinical sensitivity of this test method. Negative (NOT DETECTED) result should not be used as the sole basis for treatment or other patient management decisions. Rather negative results should be combined with clinical observations, patient history, and epidemiological information to make patient management decisions.Fact sheet for providers: https://www.fda.gov/media/322137/downloadFact sheet for patients: https://www.fda.gov/media/527795/downloadThis test has received FDA Emergency Use Authorization (EUA) and has been verified by [facility] ([facility]). This test is only authorized for the duration of time that circumstances exist to justify the authorization of the emergency use of in vitro diagnostic tests for the detection of SARS-CoV-2 virus and/or diagnosis of COVID-19 infection under section 564(b)(1) of the Act, 21 U.S.C. 360bbb-3(b)(1), unless the authorization is terminated or revoked sooner. [facility] is certified under CLIA-88 as qualified to perform high complexity testing. Testing is performed in the [facility] laboratories located at [id number] [place] [address]. Covid 19 Resultson 2 SARS-CoV-2 (COVID-19) RNA EMORY+probe Ql (Unsp spec) Normal [facility] CBC AND DIFFERENTIALon 12-06 % AUTOMATED IMMATURE GRAN 0.3 % Normal 0.0 - 0.9 [facility] Comment on above: Result Comment: Rose ture Granulocyte Count (IG) includes promyelocytes, myelocytes and metamyelocytes but does not include bands. Percent differential counts (%) should be interpreted in the context of the absolute cell counts (cells/L). Performed By: #### C BCDF ####[id number] [place] [address] Basophils (Bld) [#/Vol] 0.07 10*3/uL Normal 0.00 - 0.10 [facility] Comment on above: Performed By: #### C BCDF ####[id number] [place] [address] Basophils/100 WBC (Bld) 0.8 % Normal 0.0 - 2.0 [facility] Comment on above: Performed By: #### C BCDF ####[id number] [place] [address] Eosinophils (Bld) [#/Vol] 0.17 10*3/uL Normal 0.00 - 0.70 [facility] Comment on above: Performed By: #### C BCDF ####[id number] [place] [address] Eosinophils/100 WBC (Bld) 1.9 % Normal 0.0 - 6.0 [facility] Comment on above: Performed By: #### C BCDF ####[id number] [place] [address] Erythrocyte distribution width (RBC) [Ratio] 13.4 % Normal 11.5 - 14.5 [facility] Comment on above: Performed By: #### C BCDF ####[id number] [place] [address] Hematocrit (Bld) [Volume fraction] 45.2 % Normal 41.0 - 52.0 [facility] Comment on above: Performed By: #### C BCDF ####[id number] [place] [address] Hemoglobin (Bld) [Mass/Vol] 15.4 g/dL Normal 13.5 - 17.5 [facility] Comment on above: Performed By: #### C BCDF ####[id number] [place] [address] Lymphocytes (Bld) [#/Vol] 2.08 10*3/uL Normal 1.20 - 4.80 [facility] Comment on above: Performed By: #### C BCDF ####[id number] [place] [address] Lymphocytes/100 WBC (Bld) 23.2 % Normal 13.0 - 44.0 [facility] Comment on above: Performed By: #### C BCDF ####[id number] [place] [address] MCHC (RBC) [Mass/Vol] 34.1 g/dL Normal 32.0 - 36.0 [facility] Comment on above: Performed By: #### C BCDF ####[id number] [place] [address] MCV (RBC) [Entitic vol] 90 fL Normal 80 - 100 [facility] Comment on above: Performed By: #### C BCDF ####[id number] [place] [address] Monocytes (Bld) [#/Vol] 0.97 10*3/uL Normal 0.10 - 1.00 [facility] Comment on above: Performed By: #### C BCDF ####[id number] [place] [address] Monocytes/100 WBC (Bld) 10.8 % Normal 2.0 - 10.0 [facility] Comment on above: Performed By: #### C BCDF ####[id number] [place] [address] Neutrophils (Bld) [#/Vol] 5.64 10*3/uL Normal 1.20 - 7.70 [facility] Comment on above: Performed By: #### C BCDF ####[id number] [place] [address] Neutrophils/100 WBC (Bld) 63.0 % Normal 40.0 - 80.0 [facility] Comment on above: Performed By: #### C BCDF ####[id number] [place] [address] NUCLEATED RBC 0.0 /100 WBC Normal 0.0-0.0 [facility] Comment on above: Performed By: #### C BCDF ####[id number] [place] [address] Platelets (Bld) [#/Vol] 408 10*3/uL Normal 150 - 450 [facility] Comment on above: Performed By: #### C BCDF ####[id number] [place] [address] RBC 5.00 x10E12/L Normal 4.50 - 5.90 [facility] Comment on above: Performed By: #### C BCDF ####[id number] [place] [address] WBC (Bld) [#/Vol] 9.0 10*3/uL Normal 4.4 - 11.3 [facility] Comment on above: Performed By: #### C BCDF ####[id number] [place] [address] COAGULATION SCREENon 022 aPTT Coag (Bld) [Time] 33 s Normal 26 - 39 [facility] Comment on above: Result Comment: THE APTT IS NO LONGER USED FOR MONITORING UNFRACTIONATED HEPARIN THERAPY. FOR MONITORING HEPARIN THERAPY, USE THE HEPARIN ASSAY. Performed By: #### C OAGS ####[id number] [place] [address] PT Coag (PPP) [Time] 12.5 s Normal 9.8 - 13.4 [facility] Comment on above: Performed By: #### C OAGS ####[id number] [place] [address] PT, INR 1.1 Normal 0.9 - 1.1 [facility] Comment on above: Performed By: #### C OAGS ####[id number] [place] [address] COMPREHENSIVE PANELon 2021 Albumin [Mass/Vol] 3.9 g/dL Normal 3.4 - 5.0 [facility] Comment on above: Performed By: #### C MP ####[id number] [place] [address] ALP [Catalytic activity/Vol] 48 U/L Normal 33 - 136 [facility] Comment on above: Performed By: #### C MP ####[id number] [place] [address] ALT [Catalytic activity/Vol] 26 U/L Normal 10 - 52 [facility] Comment on above: Result Comment: Anabel ents treated with Sulfasalazine may generate falsely decreased results for ALT. Performed By: #### C MP ####[id number] [place] [address] Anion gap [Moles/Vol] 16 mmol/L Normal 10 - 20 [facility] Comment on above: Performed By: #### C MP ####[id number] [place] [address] AST [Catalytic activity/Vol] 20 U/L Normal 9 - 39 [facility] Comment on above: Performed By: #### C MP ####[id number] [place] [address] Bilirubin [Mass/Vol] 0.8 mg/dL Normal 0.0 - 1.2 [facility] Comment on above: Performed By: #### C MP ####[id number] [place] [address] Calcium [Mass/Vol] 9.7 mg/dL Normal 8.6 - 10.6 [facility] Comment on above: Performed By: #### C MP ####[id number] [place] [address] Chloride [Moles/Vol] 95 mmol/L Low 98 - 107 [facility] Comment on above: Performed By: #### C MP ####[id number] [place] [address] Creatinine [Mass/Vol] 0.84 mg/dL Normal 0.50 - 1.30 [facility] Comment on above: Performed By: #### C MP ####[id number] [place] [address] eGFR MALE >90 Normal >90 [facility] Comment on above: Result Comment: CALC ULATIONS OF ESTIMATED GFR ARE PERFORMED USING THE 2020 CKD-EPI STUDY REFIT EQUATION WITHOUT THE RACE VARIABLE FOR THE IDMS-TRACEABLE CREATININE METHODS.https://jasn.asnjournals.org/content//ASN .1478349838 Performed By: #### C MP ####[id number] [place] [address] Glucose [Mass/Vol] 116 mg/dL High 74 - 99 [facility] Comment on above: Performed By: #### C MP ####[id number] [place] [address] HCO3 (Bld) [Moles/Vol] 27 mmol/L Normal 21 - 32 [facility] Comment on above: Performed By: #### C MP ####[id number] [place] [address] Potassium [Moles/Vol] 3.4 mmol/L Low 3.5 - 5.3 [facility] Comment on above: Performed By: #### C MP ####[id number] [place] [address] Protein [Mass/Vol] 7.8 g/dL Normal 6.4 - 8.2 [facility] Comment on above: Performed By: #### C MP ####[id number] [place] [address] Sodium [Moles/Vol] 135 mmol/L Low 136 - 145 [facility] Comment on above: Performed By: #### C MP ####[id number] [place] [address] Urea nitrogen [Mass/Vol] 10 mg/dL Normal 6 - 23 [facility] Comment on above: Performed By: #### C MP ####[id number] [place] [address] Complete Blood Count + Diffe kush 12-06-2021 Basophils/100 WBC (Bld) 0.8 % 0.0 - 2.0 MG-Otolaryn gology-Evie man Work Phone: Erythrocyte distribution width (RBC) [Ratio] 13.4 % See Below MG-Otolaryn gology-Evie man Work Phone: Comment on above: Reference Range: 11. 5 - 14.5 Hematocrit (Bld) [Volume fraction] 45.2 % See Below MG-Otolaryn gology-Evie man Work Phone: Comment on above: Reference Range: 41. 0 - 52.0 Hemoglobin (Bld) [Mass/Vol] 15.4 g/dL See Below MG-Otolaryn gology-Evie man Work Phone: [phone] Comment on above: Reference Range: 13. 5 - 17.5 Lymphocytes/100 WBC (Bld) 23.2 % See Below MG-Otolaryn gology-Evie man Work Phone: [phone] Comment on above: Reference Range: 13. 0 - 44.0 MCHC (RBC) [Mass/Vol] 34.1 g/dL See Below MG-Otolaryn gology-Evie man Work Phone: [phone] Comment on above: Reference Range: 32. 0 - 36.0 MCV (RBC) [Entitic vol] 90 fL 80 - 100 MG-Otolaryn gology-Evie man Work Phone: [phone] Monocytes/100 WBC (Bld) 10.8 % 2.0 - 10.0 MG-Otolaryn gology-Evie man Work Phone: [phone] Neutrophils/100 WBC (Bld) 63.0 % See Below MG-Otolaryn gology-Evie man Work Phone: [phone] Comment on above: Reference Range: 40. 0 - 80.0 Platelets (Bld) [#/Vol] 408 10*3/uL 150 - 450 MG-Otolaryn gology-Evie man Work Phone: [phone] RBC (Bld) [#/Vol] 5.00 {x10E12/L} See Below MG -Otolaryn gology-Evie man Work Phone: [phone] Comment on above: Reference Range: 4.5 0 - 5.90 WBC (Bld) [#/Vol] 9.0 10*3/uL 4.4 - 11.3 MG-[place] laryn gology-Evie man Work Phone: [phone] Complete Blood Count + Differential 0.07 {x10E9/L} See Below MG-Otolaryn gology-Evie man Work Phone: [phone] Comment on above: Reference Range: 0.0 0 - 0.10 Complete Blood Count + Differential 0.17 {x10E9/L} See Below MG-Otolaryn [employer]-Evie [place] Work Phone: [phone] Comment on above: Reference Range: 0.0 0 - 0.70 Complete Blood Count + Differential 0.97 {x10E9/L} See Below MG-Otolaryn [employer]Evie [place] Work Phone: [phone] Comment on above: Reference Range: 0.1 0 - 1.00 Complete Blood Count + Differential 2.08 {x10E9/L} See Below MG-Otolaryn [employer]-Ev[place] Work Phone: [phone] Comment on above: Reference Range: 1.2 0 - 4.80 Complete Blood Count + Differential 5.64 {x10E9/L} See Below MGAgricanOtolaryn [employer]Evie [place] Work Phone: [phone] Comment on above: Reference Range: 1.2 0 - 7.70 Complete Blood Count + Differential 1.9 % 0.0 - 6.0 MG-Otolaryn [employer]-Ev[place] Work Phone: [phone] Complete Blood Count + Differential 0.3 % 0.0 - 0.9 MG-Otolaryn [employer]Evieduuin Work Phone: [phone] Comment on above: Immature Granulocyte Count (IG) includes promyelocytes, myelocytes and metamyelocytes but does not include bands. Percent differential counts (%) should be interpreted in the context of the absolute cell counts (cells/L). Complete Blood Count + Differential 0.0 {/100_WBC} 0.0-0.0 MG-Otolaryn [employer] Work Phone: [phone] Electrocardiogram 12 Leadon 12-06-2021 Electrocardiogram 12 Lead Normal [facility] HEMOGLOBIN A1Con 12-06-2021 Glucose [Mass/Vol] 157 mg/dL Normal [facility] Comment on above: Performed By: #### H BA1E ####[id number] [place] [address] HbA1c (Bld) [Mass fraction] 7.1 % Abnormal [facility] Comment on above: Result Comment: Diag nosis of Diabetes-Adults Non-Diabetic: < or = 5.6% Increased risk for developing diabetes: 5.7-6.4% Diagnostic of diabetes: > or = 6.5%. Monitoring of Diabetes Age (y) Therapeutic Goal (%) Adults: >18 <7.0 Pediatrics: 13-18 <7.5 7-12 <8.0 0- 6 7.5-8.5 [employer]. Diabetes Care 33(S1), Aug 2009. Performed By: #### H BA1E ####[id number] [place] [address] Hemoglobin A1Con 12-06-2021 Glucose [Mass/Vol] 157 mg/dL MG-Oliverivan rock [employer]-Evieduuin Work Phone: HbA1c (Bld) [Mass fraction] 7.1 % Abnormal MG-Otolaryn [employer]-Ev[place] Work Phone: [phone] Comment on above: Diagnosis of Diabete s-Adults Non-Diabetic: < or = 5.6% Increased risk for developing diabetes: 5.7-6.4% Diagnostic of diabetes: > or = 6.5%. Monitoring of Diabetes Age (y) Therapeutic Goal (%) Adults: >18 <7.0 Pediatrics: 13-18 <7.5 7-12 <8.0 0- 6 7.5-8.5 [employer]. Diabetes Care 33(S1), Aug 2009. Laboratory - Blood bankon ABO group Nom (Bld) O MG-Ot luis felipe [employer] Work Phone: Blood group antibody screen Ql Negative MG-Otolaryn [employer] Work Phone: Rh immune globulin screen (Bld) [Interp] Positive MG-Otolaryn [employer] Work Phone: Laboratory - Chemistry and C hemistry - challengeon 12-06-2021 Albumin BCP dye [Mass/Vol] 3.9 g/dL 3.4 - 5.0 MG-Otolaryn [employer]-Evie man Work Phone: [phone] ALP [Catalytic activity/Vol] 48 U/L 33 - 136 MG-Otolaryn gology-Evie man Work Phone: [phone] ALT With P-5'-P [Catalytic activity/Vol] 26 U/L 10 - 52 MG-Otolaryn gology-Evie man Work Phone: [phone] Comment on above: Patients treated wit h Sulfasalazine may generate falsely decreased results for ALT. Anion gap [Moles/Vol] 16 mmol/L 10 - 20 MG-Otolaryn gology-Evie man Work Phone: [phone] AST With P-5'-P [Catalytic activity/Vol] 20 U/L 9 - 39 MG-Otolaryn gology-Evie man Work Phone: [phone] Bilirubin [Mass/Vol] 0.8 mg/dL 0.0 - 1.2 MG-O tolaryn gology-Evie man Work Phone: [phone] Calcium [Mass/Vol] 9.7 mg/dL 8.6 - 10.6 MG-Oliver laryn gology-Evie man Work Phone: [phone] Chloride [Moles/Vol] 95 mmol/L below low threshold 98 - 107 MG-Otolaryn gology-Evie man Work Phone: [phone] CO2 [Moles/Vol] 27 mmol/L 21 - 32 MG-Otolar yn gology-Evie man Work Phone: [phone] Creatinine [Mass/Vol] 0.84 mg/dL See Below MG-Otolaryn gology-Evie man Work Phone: [phone] Comment on above: Reference Range: 0.5 0 - 1.30 Glucose [Mass/Vol] 116 mg/dL above high threshold 74 - 99 MG-Otolaryn gology-Evie man Work Phone: [phone] Potassium [Moles/Vol] 3.4 mmol/L below low threshold 3.5 - 5.3 MG-Otolaryn gology-Evie man Work Phone: [phone] Protein [Mass/Vol] 7.8 g/dL 6.4 - 8.2 MG-[place] larantonio yanez-Ev[place] Work Phone: Sodium [Moles/Vol] 135 mmol/L below low threshold 136 - 145 MG-Otolaryn golsantiagoy-Evie man Work Phone: Urea nitrogen [Mass/Vol] 10 mg/dL 6 - 23 MG-Otolaryn golsantiagoy-Evie g[place] Work Phone: Laboratory - Coagulationon 0 12-06-2021 aPTT Coag (PPP) [Time] 33 s 26 - 39 MG-Otluis felipe yanez-Ev[place] Work Phone: Comment on above: THE APTT IS NO LONGE R USED FOR MONITORING UNFRACTIONATED HEPARIN THERAPY. FOR MONITORING HEPARIN THERAPY, USE THE HEPARIN ASSAY. INR Coag (PPP) [Relative time] 1.1 {INR} 0.9 - 1.1 MG-Otolaryn madisony-Evie [place] Work Phone: PT Coag (PPP) [Time] 12.5 s 9.8 - 13.4 MG-O niurka yanez-Ev[place] Work Phone: MRSA Screenon 12-06-2021 Staphylococcus sp identified Org specific cx Nom (Unsp spec) MG-Otolaryn madisony-Ev[place] Work Phone: No Panel Informationon 12-06 >90 >90 MG-Otolaryn madisony-Evie [place] Work Phone: Comment on above: CALCULATIONS OF MICKEY MATED GFR ARE PERFORMED USING THE 2020 CKD-EPI STUDY REFIT EQUATION WITHOUT THE RACE VARIABLE FOR THE IDMS-TRACEABLE CREATININE METHODS.https://jasn.asnjournals.org/content//ASN .2437446214 http://[email or web address] 1:8080 /musescripts/[email or web address]?R etrieveTestByDateTime?Anabel vuqVV=[id number]&Date=&Time=14%3a04%3a58%3a 00&TestType=ECG&Site=1&Out putType=PDF&Ext=PDF MG-Otolaryn gology-Evie man Work Phone: [phone] Normal sinus rhythm MG-Ot olaryn gology-Evie man Work Phone: [phone] Borderline Abnormal MG-Ot olaryn gology-Evie man Work Phone: [phone] 1 MG-Otolaryn gology-Evie man Work Phone: [phone] 1 MG-Otolaryn gology-Evie man Work Phone: [phone]()[phone] 1 MG-Otolaryn gology-Evie man Work Phone: [phone]()[phone] 1 MG-Otolaryn gology-Evie man Work Phone: [phone]()[phone] 1 MG-Otolaryn gology-Evie man Work Phone: [phone]()[phone] 15 1 MG-Otolaryn gology-Evie man Work Phone: [phone]()[phone] 8 1 MG-Otolaryn gology-Evie man Work Phone: [phone]()[phone] 43 1 MG-Otolaryn gology-Evie man Work Phone: [phone]()[phone] 32 1 MG-Otolaryn gology-Evie man Work Phone: [phone]()[phone] 1 MG-Otolaryn gology-Evie man Work Phone: 1()[phone] 1 MG-Otolaryn gology-Evie man Work Phone: 1()[phone] 90 1 MG-Otolaryn gology-Evie man Work Phone: [phone]()[phone] 1 MG-Otolaryn gology-Evie man Work Phone: [phone]()[phone] 1 MG-Otolaryn gology-Evie man Work Phone: [phone] Radiologyon 12-06-2021 XR Chest 2 Views Normal MG-Otola ryn gology-Evie man Work Phone: [phone] STAPH/MRSA SCREENon 12-07-19 22 STAPH/MRSA SCREEN Normal [facility] Comment on above: Performed By: #### S TAPH ####[id number] [place] [address] TH CHEST 2 VIEW PA AND LATon 12-06-2021 TH CHEST 2 VIEW PA AND LAT Normal [facility] TYPE + SCREENon 12-06-2021 ABO TYPE O Normal [facility] Comment on above: Performed By: #### T +S ####[id number] [place] [address] RH TYPE Positive Normal [facility] Comment on above: Performed By: #### T +S ####[id number] [place] [address] Tobacco Screening.on Fall risk assessment a) No falls within the last year MG-Otolaryn gology-Evie man Work Phone: Tobacco use status CPHS b) No MG-Otolaryn gology-Evie man Work Phone: Tobacco Screening.on Fall risk assessment a) No falls within the last year MG-Otolaryn gology-Evie man Work Phone: Tobacco use status CPHS b) No MG-Otolaryn gology-Evie man Work Phone: Vital Signs Date Time Vital Sign Value Performing Clinician Facility 03-23-2022 12:56-0400 Body height 175.26 cm No PCP None MG-Otolaryngolog y -[place] Work Phone: 03-23-2022 12:56-0400 Body mass index (BMI) [Ratio] 28.5 kg/m2 No PCP None [facility]tolaryngology -[place] Work Phone: 03-23-2022 12:56-0400 Body surface area Derived from formula 2.03 m2 No PCP None [facility]aryngology -[place] Work Phone: 03-23-2022 12:56-0400 Body temperature 97.5 [degF] No PCP None MG-Otolaryngolo gy -[place] Work Phone: 03-23-2022 12:56-0400 Body weight 87.54 kg No PCP None MG-Otolaryngolog y -[place] Work Phone: 02-02-2022 09:05-0400 Body height 175.26 cm No PCP None MG-Otolaryngolog y -[place] Work Phone: 02-02-2022 09:05-0400 Body mass index (BMI) [Ratio] 29.2 kg/m2 No PCP None [facility]tolaryngology -[place] Work Phone: 02-02-2022 09:05-0400 Body surface area Derived from formula 2.06 m2 No PCP None MG-Otolaryngology -[place] Work Phone: 02-02-2022 09:05-0400 Body temperature 97.2 [degF] No PCP None MG-Otolaryngolo gy -[place] Work Phone: 02-02-2022 09:05-0400 Body weight 89.68 kg No PCP None MG-Otolaryngolog y -[place] Work Phone: 01-05-2022 15:11-0400 Body temperature 97.7 [degF] No Pcp Required [facility] 01-05-2022 15:11-0400 Diastolic blood pressure 85 mm[Hg] No Pcp Required [facility] 01-05-2022 15:11-0400 Heart rate 87 /min No Pcp Required [facility] 01-05-2022 15:11-0400 Respiratory rate 18 /min No Pcp Required [facility] 01-05-2022 15:11-0400 SaO2% (BldA) [Mass fraction] 98 % No Pcp Required [facility] 01-05-2022 15:11-0400 Systolic blood pressure 138 mm[Hg] No Pcp Required [facility] 12-26-2021 12:26-0400 Body height 175.26 cm No PCP None MG-Otolaryngolog y -[place] Work Phone: 12-26-2021 12:26-0400 Body mass index (BMI) [Ratio] 31.6 kg/m2 No PCP None [facility]aryngology -[place] Work Phone: 12-26-2021 12:26-0400 Body surface area Derived from formula 2.13 m2 No PCP None MG-[facility]tolaryngology -[place] Work Phone: 12-26-2021 12:26-0400 Body weight 97.07 kg No PCP None MG-Otolaryngolog y -[place] Work Phone: 12-26-2021 12:26-0400 Diastolic blood pressure 82 mm[Hg] No PCP None MG-[facility]tolaryngology -[place] Work Phone: 12-26-2021 12:26-0400 Heart rate 112 /min No PCP None MG-Otolaryngolog y -[place] Work Phone: 12-26-2021 12:26-0400 SaO2% (BldA) [Mass fraction] 99 % No PCP None MG-[facility]tolaryngology -[place] Work Phone: 12-26-2021 12:26-0400 Systolic blood pressure 130 mm[Hg] No PCP None MG-[facility]tolaryngology -[place] Work Phone: 12-21-2021 15:50-0400 Body temperature 97.88 [degF] No Pcp Required [facility] 12-21-2021 15:50-0400 Diastolic blood pressure 80 mm[Hg] No Pcp Required [facility] 12-21-2021 15:50-0400 Heart rate 84 /min No Pcp Required [facility] 12-21-2021 15:50-0400 Respiratory rate 18 /min No Pcp Required [facility] 12-21-2021 15:50-0400 SaO2% (BldA) [Mass fraction] 98 % No Pcp Required [facility] 12-21-2021 15:50-0400 Systolic blood pressure 131 mm[Hg] No Pcp Required [facility] 12-14-2021 13:13-0400 Body temperature 37.0 {degrees_C} No PCP None MG-Otolaryngology -[place] Work Phone: Comment on above: NOTE: PATIENT RESULTS ARE NOT CORRECTED FOR TEMPERATURE. 12-14-2021 13:13-0400 SaO2% (BldA) [Mass fraction] 99 % No PCP None [facility]aryngology -[place] Work Phone: 12-06-2021 14:55-0400 Body height 175.26 cm Unknown Unknown MG-Otolaryngolog y -[place] Work Phone: 12-06-2021 14:55-0400 Body mass index (BMI) [Ratio] 32.69 kg/m2 Unknown Unknown [facility] Work Phone: 12-06-2021 14:55-0400 Body surface area Derived from formula 2.16 m2 Unknown Unknown [facility]aryngology [facility] Work Phone: 12-06-2021 14:55-0400 Body weight 100.42 kg Unknown Unknown MG-[facility]tolaryngolog y -[place] Work Phone: 11-29-2021 11:41-0400 Body height 175.26 cm Unknown Unknown MG-Otolaryngolog y -[place] Work Phone: 11-29-2021 11:41-0400 Body mass index (BMI) [Ratio] 33.15 kg/m2 Unknown Unknown [facility]aryngology [facility] Work Phone: 11-29-2021 11:41-0400 Body surface area Derived from formula 2.17 m2 Unknown Unknown MG[facility]aryngology -[place] Work Phone: 11-29-2021 11:41-0400 Body weight 101.83 kg Unknown Unknown MG-Otolaryngolog y -[place] Work Phone: Encounters Encounter Date Encounter Type Care Provider Facility Start: 03-23-2022 Postop follow up vis it related to original px No PCP None JR-Fvndfymwjbphmt-Cop dman Work Phone: Start: 03-23-2022 ambulatory MD SHARON GRAY Facility:[facility] Start: 02-02-2022 Office outpatient vi sit 15 minutes No PCP None YA-Zjxioswbwnwmhz-Sdt dman Work Phone: Start: 02-02-2022 ambulatory MD SHARON GRAY Facility:[facility] Start: 01-26-2022 AUDIT No PCP None MG-Otolary ngology-Sei dman Work Phone: Start: 01-10-2022 ambulatory MD SHARON GRAY Facility:[facility] Start: 01-01-2022 End: 01-05-2022 Evaluation and management of inpatient DO ADIAALDEN WARD DISLA Facility:[facility] Start: 01-01-2022 End: 01-05-2022 Evaluation and management of inpatient Sharon Padron 5 [id number] [id number] Start: 12-26-2021 Current tobacco non- user cad cap copd pv dm No PCP None IV-Tbuwysjuljqvsm-Gpp dman Work Phone: Start: 12-14-2021 Chart Update No PCP None MG-Otolary ngology-Sei dman Work Phone: Start: [facility] Sharon [place], Status: Pen, Time: 7:00 AM No PCP None YJ-Knskoqltyhztso-Itv dman Work Phone: Start: 12-14-2021 [facility] [place]: Bienvenido Goldman, Status: Pen, Time: 7:00 AM No PCP None GA-Ekndekqtbokgqt-Axc dman Work Phone: Start: 12-14-2021 End: 12-21-2021 Evaluation and management of inpatient Sharon Padron 5 [id number] [id number] Start: 12-13-2021 Chart Update No PCP None MG-Otolary ngology-Sei dman Work Phone: Start: 12-07-2021 Chart Update Unknown Unknown MG-Otol aryngology-Sei dman Work Phone: Start: 12-06-2021 Office outpatient vi sit 40 minutes Unknown Unknown XZ-Btosjmolufsues-Rkm dman Work Phone: Start: 12-06-2021 ambulatory UNKNOWN UNKNOWN Facilit y:[facility] Start: 12-06-2021 ambulatory UNKNOWN UNKNOWN Facilit y:[facility] Start: 12-06-2021 Encounter for blood typing MD SHARON GRAY [facility] Start: 12-06-2021 Encounter for other preprocedural examination MD SHARON GRAY [facility] Start: 12-06-2021 Encounter for preprocedural cardiovascular examination MD SHARON GRAY [facility] Start: 12-06-2021 Encounter for preprocedural laboratory examination MD SHARON GRAY [facility] Start: 11-29-2021 Office outpatient ne w 45 minutes Unknown Unknown WI-Oazfrdyqxtansq-Yld dman Work Phone: Preoperative state Unknown Unknown MG-[place] laryngology-Sei dman Work Phone: Procedures Date Procedure Procedure Detail Performing Clinician Start: 12-16-2021 End: 12-16-2021 EKG impression Jak Mendiola Start: 12-06-2021 Antibody screen MD RORO GRAY Comment on above: Performed By: #### T +S ####[id number] [place] [address] Plan of Treatment Date Care Activity Detail Author Start: 03-16-2022 [facility], Provider: Sharon Gray, Status: Pen, Time: 9:15 AM [facility], Provider: Sharon Gray, Status: Pen, Time: 9:15 AM SP-Jxdvhbpnvvpanr-Iq idman Work Phone: Start: 02-02-2022 [facility], Provider: Sharon Gray, Status: Pen, Time: 9:15 AM [facility], Provider: Sharon Gray, Status: Pen, Time: 9:15 AM DC-Igywcaazuouusp-Ye idman Work Phone: Start: 01-09-2022 [facility], Provider: Sharon Gray, Status: Pen, Time: 3:00 PM [facility], Provider: Sharon Gray, Status: Pen, Time: 3:00 PM GC-Pplxfzaowlvsqi-Uv idman Work Phone: Start: 01-09-2022 Patient encounter procedure [facility] Start: 12-26-2021 Patient encounter procedure [facility] Start: 12-14-2021 End: 12-15-2022 [facility] Comment on above: IF patient HAS a sec ure IV access & is Unconscious, Conscious, NPO or Unable to Eat or Drink. Repeat until BG reaches 100 mg/dL or greater. Push 2-3 mL/minute. Discontinue once BG reaches 100 mg/dL or greater. IF patient DOES NOT have secure IV access & is Unconscious, Conscious, NPO or Unable to Eat or Drink. Repeat until BG reaches 100 mg/dL or greater. Discontinue once BG reaches 100 mg/dL or greater. 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 immediately Start: 12-14-2021 [facility] [place], Provider: Sharon Gray, Status: Pen, Time: 7:00 AM [facility] [place], Provider: Sharon Gray, Status: Pen, Time: 7:00 AM WZ-Gvewsqyzplkxez-La idman Work Phone: Start: 12-14-2021 [facility]: Bienvenido Goldman, Status: Pen, Time: 7:00 AM [facility] [place]: Bienvenido Goldman, Status: Pen, Time: 7:00 AM DS-Jixyphmrvgisyo-Ar idverna Work Phone: Payers Date Payer Category Payer Medicare [id number] 2019 Unknown 1955 Unknown [id number] 2.16. [id number] 1955 Unknown [id number] 2.16. [id number] 1954 Unknown [id number] 2.16. [id number] 1954 Unknown [id number] 2.16. [id number] 1954 Unknown [id number] 2.16. [id number] 1954 Unknown [id number] 2.16. [id number] 1954 Unknown [id number] 2.16. [id number] 1954 Unknown [id number] 2.16. [id number] Unknown [id number] Unknown [id number] Social History Date Type Detail Facility [facility] Tobacco smoking consumption unknown [facility] Functional Status Date Assessment Result Facility Functional observable [facility] Mental Status Date Assessment Result Facility 01-04-2022 Cognitive functi ons :22 [facility] 12-15-2021 Cognitive functi ons :15 [facility] Clinical Notes 12-14-2021 to 01-05-2022 <item><item><item><item><item><item><item><item><item><item><item><item><item><i tem><item><item><item><item><item><item><item><item> Note Date & Type Note Facility 01-05-2022 Note [facility] 01-02-2022 Note [facility] 01-02-2022 Note [facility]21-2021 Note [facility] 12-15-2021 Note [facility] 12-14-2021 Note [facility] 12-14-2021 Note [facility] 12-14-2021 [facility] of Present illness Narrative 66 [place] man [place] for large right oral cavity scca. He has had swelling and pain for a couple months now. No bleeding. No smoking but does have ETOH use. This was biopsied recently showing scca. He has no trouble swallowing besides the pain in the jaw, no weight loss. no trouble breathing. Not on any blood thinners, denies cardiac problems. Had fracture of the left lower leg years ago but did not require surgery PT-Jdkmmxmvgbwnqi-Ohrbzr n Work Phone: History of Present illness Narrative here for an opinion and reconstructive options for upcoming composite resectionhe underwent scanshe his and i dsicussed options in detailhe is out of pain [facility]Xpbggwbbsoqjgr-Gkgqov n Work Phone: History of Present illness Narrative 66 yo man referred [place] for large right oral cavity scca. He has had swelling and pain for a couple months now. No bleeding. No smoking but does have ETOH use. This was biopsied recently showing scca. He has no trouble swallowing besides the pain in the jaw, no weight loss. no trouble breathing. Not on any blood thinners, denies cardiac problems. Had fracture of the left lower leg years ago but did not require tsylyll8-9-27 post-op: doing well at home, no trouble breathing, walking around. BA-Exkdgzjravljri-Ofxnkh n Work Phone: History of Present illness Narrative 66 yo man referred [place] for large right oral cavity scca. He has had swelling and pain for a couple months now. No bleeding. No smoking but does have ETOH use. This was biopsied recently showing scca. He has no trouble swallowing besides the pain in the jaw, no weight loss. no trouble breathing. Not on any blood thinners, denies cardiac problems. Had fracture of the left lower leg years ago but did not require hbacjmk1-3-88 post-op: doing well at home, no trouble breathing, walking around.01-10-22 fu : admitted last week for neck drainage and also some loss of the [place] skin of the leg skin, now with wound vac. tolerating liquid diet, some soft, has some abdominal discomfort with the tube [id number] FU: doing well from a PO standpoint, able to walk around without much discomfort QY-Hjtstxxeqdlafk-Leisfa n Work Phone: History of Present illness Narrative 66 yo man [place] for large right oral cavity scca. He has had swelling and pain for a couple months now. No bleeding. No smoking but does have ETOH use. This was biopsied recently showing scca. He has no trouble swallowing besides the pain in the jaw, no weight loss. no trouble breathing. Not on any blood thinners, denies cardiac problems. Had fracture of the left lower leg years ago but did not require smztmud2-0-83 post-op: doing well at home, no trouble breathing, walking around.01-10-22 fu : admitted last week for neck drainage and also some loss of the [place] skin of the leg skin, now with wound vac. tolerating liquid diet, some soft, has some abdominal discomfort with the tube [id number] FU: doing well from a PO standpoint, able to walk around without much discomfort BT-Tjijsovmsbqvwf-Teilw MAC1 [address] [place] Work Phone: History of Present illness Narrative 66 yo man referred [place] for large right oral cavity scca. He has had swelling and pain for a couple months now. No bleeding. No smoking but does have ETOH use. This was biopsied recently showing scca. He has no trouble swallowing besides the pain in the jaw, no weight loss. no trouble breathing. Not on any blood thinners, denies cardiac problems. Had fracture of the left lower leg years ago but did not require kexadim0-1-56 post-op: doing well at home, no trouble breathing, walking around.01-10-22 fu : admitted last week for neck drainage and also some loss of the [place] skin of the leg skin, now with wound vac. 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 also has lung mets. leg feeling much better, can walk around, no pain HN-Gxyfnjjezvugea-Scgaaq n Work Phone: Hospital Discharge instructions Change Dressing: dailyWound Type: surgical incisionWound Site: Left fibula free flapActivity:activity as tolerated. May shower. May not return to school/work Instructions:. May not drive while taking narcotics. No pushing, pulling, or lifting objects greater than 10 pounds until follow-up visit. Weight-bearing Instructions: full weight bearing. Other activity instructions: Slowly increase your activity each day. No strenuous or vigorous exercising until cleared by your surgeon.Additional Orders:Weight: weeklyAdditional Instructions: Your tracheostomy site will close on its own, without requiring suture closure or any additional procedure. To help ensure quick healing of the trach site, it is very important to apply pressure to the site whenever you cough, talk, swallow and laugh. Without adequate pressure to the site, air will continue to leak from the wound, serving to keep it open instead of allowing it to heal. With consistent pressure during coughing, talking, laughing and swallowing, you will help to allow these tissues to heal more quickly.As the tracheotomy site will continue to drain for a while, it is important to keep clean, dry dressings in place until the wound site has completely healed. The site itself will heal from the inside out; meaning the trachea will likely close before the soft tissues of the neck. While air continues to leak from the site during respiration, speaking, etc., the trachea has not yet closed and particular attention should be pain to ensuring there is adequate manual pressure applied to the wound site when talking and coughing. Once no further air leakage is noted, it can usually be assumed that the trachea has closed. Although this may happen fairly quickly, the wound site itself may continue to seep/drain slightly for some time. This is very normal as the soft tissues of the neck, outside the trachea, continue to heal. Cover with 4x4 guaze as neededCall Provider If:Breathing faster than normal. Breathing harder than normal or having retractions. Fever of 100.4 F (38 C) or higher. Chills. Acting very sleepy and difficult to awaken. Vomiting (throwing up) and not able to eat or drink for 12 hours. Any new concerning symptoms. Call the office for signs of infection: sustained elevated temperature greater than 100.4 degrees, increased incisional pain, increased redness or swelling, tenderness to touch, or drainage along incision.Also call the office for persistent nausea or vomiting.Home Care Face to Face Certification:Home Care Services Needed: [facility] Care Agency: [facility] [phone] Disciplines Ordered: RN/SCUDDING INSPECTOR, PT, OTFace to Face Encounter Completed: yesDate of Encounter: [id number] Necessity for Homecare (based on clinical findings): My clinical findings support the need for the following skilled services: Patient needs Physical Therapist to improve deconditioning, and to restore the ability to walk without support; Long Term/RN needed to instruct patient/caregiver to perform wound care dressing changes and to monitor for signs and symptoms of infection or adverse effects.Homebound Status: homeboundHomebound Due to: Based on my clinical findings, this patient is homebound due to inability to communicate secondary to a new tracheostomy (removed prior to discharge), multiple facial and right sided extremity wounds, and also due to physical deconditioning acquired during hospitalization making independent ambulation contraindicated until the patient regains strength and endurance. Face to Face Completed and Home Care Orders Reviewed: I certify that this patient is under my care. I have reviewed the information included in the face to face and certify that the home care services ordered are medically necessary for this patient.Home Care Skilled Service:Home Care Skilled Service: assessment, Rehab (PT/OT/SP eval and treat), tube feed, weight check, wound careType of Assessment: Post opAssessment: First Home Care Visit: day after dischargeRehab: First Home Care Visit: day after dischargeTube Feed: First Home Care Visit: day after dischargeWeight Check: First Home Care Visit: day after dischargeWound Care: First Home Care Visit: day after dischargeFollow Up Appointment 1:Physician/Dept/Service: Dr Rubi for Referral: Post-op follow-upScheduled Date/Time: 26-Dec-2021 12:45Location: [address] [facility] [address] [place], [place] [address]Vwjga Number: [phone]: Call the above number to confirm time, date, and locationHomegoing Equipment and Supplies:Homegoing Equipment: commode, Tub transfer bench and hand held showerEquipment Provider: [facility] -Will have delivered to homeHomegoing Supplies: tube feeding supplies, wound care supplies, HastingsEquipment Provider: [phone] Tube Care:PEG Tube Care: Cleanse with 1:1 mixture of hydrogen peroxide and normal saline to remove any crust. Spin bumper daily. If bumper does not spin freely notify MD. Monitor site for signs & symptoms of infection which include redness, warmth, increased tenderness and purulent drainage.Incision Care:Facial/Neck Incision Care: Cleanse all facial/neck incisions twice daily with baby shampoo or mild soap and water. Apply petroleum jelly/vaseline to incision line twice daily until incision has healed. Intra-oral Incision Care: To care for your intra-oral incisions, please swish and spit with 15 mLs of peridex solution 3-4 times daily until follow-up. Use swabs to perform oral care. Old Tracheostomy Site: Cleanse stoma site with 1/2 hydrogen peroxide and 1/2 normal saline to remove any crusting. Cover with a 4x4. Change dressing daily and as needed for saturation until healed or closed.Flaps:Free Flap Donor Site Right fibula, Right lateral arm. Fibula Care: Clean free flap donor site daily with baby shampoo or mild soap and water, pat dry, no scrubbing. Dressing to free flap donor site is to be changed daily. Apply xeroform then cover with non-stick telfa. Wrap with kerlix to hold in place. Wrap with an mary wrap. Right Lateral Arm: Cleanse all incisions twice daily with baby shampoo or mild soap and water. Apply petroleum jelly/vaseline to incision line twice daily until incision healed.Skilled Facility Instructions:FOR PATIENTS GOING TO PRISON FACILITY: Please make sure this patient has all suctioning, dressing, trach care and tube feeding supplies in their home prior to leaving the retirement facility. [facility] Discharge instructions Activity:activity as tolerated. May shower. May not return to school/work Instructions:. May not drive while taking narcotics. No pushing, pulling, or lifting objects greater than 10 pounds for 2 week(s). Weight-bearing Instructions: full weight bearing. Other activity instructions: Slowly increase your activity each day. No strenuous or vigorous exercising until cleared by your surgeon.VAC 1:Vac Site: right legChange Dressin times a weekContact Layer: MepitelDressing Type: VAC granu foam dressingTarget Pressure: 125VAC Cycle: continuousDate of Wound Measurements: 2Other Instructions: The first change/dressing take down will be done at Dr. Gray at your appointment. Please make sure to take the vac dressing supplies with you to the appointment.Additional Orders:Weight: weeklyAdditional Instructions: Call the office for signs of infection: sustained elevated temperature greater than 100.4 degrees, increased incisional pain, increased redness or swelling, tenderness to touch, or drainage along incision.Also call the office for persistent nausea or vomiting.Call Provider If:Breathing faster than normal. Breathing harder than normal or having retractions. Fever of 100.4 F (38 C) or higher. Chills. Urinating less than normal, over 1 day. Acting very sleepy and difficult to awaken. Vomiting (throwing up) and not able to eat or drink for 12 hours. 3 or more loose, watery bowel movements in 24 hours (diarrhea).Home Care Face to Face Certification:Home Care Services Needed: [place] [facility] [phone] Disciplines Ordered: RN/SCUDDING INSPECTOR, PT, OTFace to Face Encounter Completed: yesDate of Encounter: [id number] Necessity for Homecare (based on clinical findings): My clinical findings support the need for the following skilled services: Patient needs Physical Therapist to improve deconditioning, and to restore the ability to walk without support; Long Term/RN needed to instruct patient/caregiver to perform wound care dressing changes and to monitor for signs and symptoms of infection or adverse effects.Homebound Status: homeboundHomebound Due to: Based on my clinical findings, this patient is homebound due to inability to communicate secondary to a new tracheostomy (removed prior to discharge), multiple facial and right sided extremity wounds, and also due to physical deconditioning acquired during hospitalization making independent ambulation contraindicated until the patient regains strength and endurance. Face to Face Completed and Home Care Orders Reviewed: I certify that this patient is under my care. I have reviewed the information included in the face to face and certify that the home care services ordered are medically necessary for this patient.Home Care Skilled Service:Home Care Skilled Service: assessment, Rehab (PT/OT/SP eval and treat), tube feed, weight check, wound careType of Assessment: Post opAssessment: First Home Care Visit: day after dischargeRehab: First Home Care Visit: day after dischargeTube Feed: First Home Care Visit: day after dischargeWeight Check: First Home Care Visit: day after dischargeWound Care: First Home Care Visit: day after dischargeFollow Up Appointment 1:Physician/Dept/Service: Dr. Sharon Rubi for Referral: Follow up visitScheduled Date/Time: 09-Jan-2022 15:00Location: [address] [facility] [address] [place] [id number] Number: [phone] with questionsComments: Please arrive 10-15 minutes early, bring photo ID, insurance information, and current list of medications. If unable to keep this appointment, please call to cancel at least 24 hours prior to appointment.PEG Tube Care:PEG Tube Care: Cleanse with 1:1 mixture of hydrogen peroxide and normal saline to remove any crust. Spin bumper daily. If bumper does not spin freely notify MD. Monitor site for signs & symptoms of infection which include redness, warmth, increased tenderness and purulent drainage.Incision Care:Facial/Neck Incision Care: Cleanse all facial/neck incisions twice daily with baby shampoo or mild soap and water. Apply petroleum jelly/vaseline to incision line twice daily until incision has healed. Intra-oral Incision Care: To care for your intra-oral incisions, please swish and spit with 15 mLs of peridex solution 3-4 times daily until follow-up. Use swabs to perform oral care. Old Tracheostomy Site: Cleanse stoma site with 1/2 hydrogen peroxide and 1/2 normal saline to remove any crusting. Cover with a 4x4. Change dressing daily and as needed for saturation until healed or closed.Flaps:Free Flap Donor Site Right fibula, Right lateral arm. Right Lateral Arm: Cleanse all incisions twice daily with baby shampoo or mild soap and water. Apply petroleum jelly/vaseline to incision line twice daily until incision healed. [facility] Reason for referral (narrative) Reason for Referral: s/p trach/PEG, mandible and neck resection [facility] Chief Complaint cancerdiscuss surgery, OR 12/[address] Gutierres upfollow upfollow up Summary Purpose Family History No Family History Records Found Advance Directives No Advanced Directives Records Found Additional Source Comments <item><item> Privacy Markings (unrecogniz ed section and content) Section Author: Peg Champagne PROHIBITION ON REDISCLOSURE OF CONFIDENTIAL INFORMATION This notice accompanies a disclosure of information concerning a client made to you with the consent of such client. Section Author: Peg Champagne PROHIBITION ON REDISCLOSURE OF CONFIDENTIAL INFORMATION This notice accompanies a disclosure of information concerning a client made to you with the consent of such client. (unrecognized sect ion and content) No Status Records Found INFORMATION SOURCE (unrecogn ized section and content) DATE CREATED AUTHOR 12/02/2022 [facility] FOR RECORDS PERTAINING TO PATIENTS WHO ARE OR HAVE BEEN ENROLLED IN A CHEMICAL DEPENDENCY/SUBSTANCEABUSE PROGRAM, SOME INFORMATION MAY BE OMITTED. This clinical summary was aggregated from multiple sources. Caution should be exercised in using it in the provision of clinical care. This summary normalizes information from multiple sources, and as a consequence, information in this document may materially change the coding, format and clinical context of patient data. In addition, data may be omitted in some cases. CLINICAL DECISIONS SHOULD BE BASED ON THE PRIMARY CLINICAL RECORDS. [employer] provides no warranty or guarantee of the accuracy or completeness of information in this document.
--- NOTE | 2024-06-22 22:42 | CT_ITS ---
INDICATION: chest pain EXAMINATION: CT CHEST WITH CONTRAST - CTA Chest WO/W Contrast Injection TECHNIQUE: Helically acquired images were obtained of the chest following IV contrast timed in the pulmonary arterial phase with sagittal and coronal reconstructed images. Post-processing of the angiographic images was performed with multiplanar reformation and 3D reconstruction. Individualized dose optimization techniques were used for this CT. IV contrast dosage and agent: 100 mL of Isovue-370. COMPARISON: 07/03/2022 CT. FINDINGS: LUNGS, PLEURA AND LARGE AIRWAYS: Mild scattered groundglass opacities in the right upper lobe and right lower lobe. No pulmonary nodule. No pleural effusion. No pneumothorax. THYROID: Unremarkable. HEART AND PERICARDIUM: Coronary artery calcifications are present. No pericardial effusion. No evidence of right heart strain. Right ventricle to left ventricle ratio measures less than 1. MEDIASTINUM AND IRENE: No mediastinal or hilar adenopathy. Fluid within the esophagus. No hiatal hernia. VESSELS: No pulmonary embolism. No thoracic aortic aneurysm. UPPER ABDOMEN: The visualized upper abdomen is unremarkable. BONES: No acute abnormality. CT/CTA Chest W/WO Contrast IMPRESSION: 1. No pulmonary embolism. 2. Mild scattered groundglass pulmonary opacities in the right upper lobe and right middle lobe which may represent a mild inflammatory or infectious process. 3. Fluid within the esophagus possibly representing gastroesophageal reflux. Electronically Signed: Ellis Gaxiola DO at 0:33 EDT ,
[2024-06-22 22:45] LABS: Reflex Troponin-HS? (from REC) Y
[2024-06-22 23:00] VITALS: BP 137/67; PULSE 65; RESP 16; O2SAT 95
[2024-06-22 23:17] LABS: Troponin-I HS 4 pg/mL (3.0-78.0)
[2024-06-22 23:59] VITALS: BP 139/77; PULSE 60; RESP 16; O2SAT 99
[2024-06-23 01:00] VITALS: BP 139/78; PULSE 61; RESP 16; O2SAT 99
[2024-06-23 02:00] VITALS: BP 122/74; PULSE 60; RESP 16; O2SAT 98
[2024-06-23 02:45] VITALS: BP 130/99; PULSE 76; RESP 16; TEMP 36.6; O2SAT 95
== END 2024-06-23 02:49 | disposition home or self-care (01) ==
PROVIDERS: Emergency Provider Emergency Medicine; Visit Provider Emergency Medicine
DX: R07.9 Chest pain, unspecified (principal); E11.9 Type 2 diabetes mellitus without complications; R79.89 Other specified abnormal findings of blood chemistry; E03.9 Hypothyroidism, unspecified; I10 Essential (primary) hypertension; Z79.82 Long term (current) use of aspirin; Z79.899 Other long term (current) drug therapy
CPT/HCPCS: 71045; 71275; 80048; 84484; 85025; 85379; 93005; 99284; Q9967; A4216